=== PATIENT | male | born 1960 | race African-American/Black ===

== ENCOUNTER → 2020-08-04 08:44 | Outpatient (BNVA) | payer OTHER, SELFPAY | PROVIDERS: PCP Internal Medicine; Referring Provider Internal Medicine; Visit Provider Internal Medicine | DX: Z76.89 Persons encountering health services in other specified circumstances (principal) ==

== ENCOUNTER 2021-01-13 07:51 | Outpatient (REF) | payer OTHER, SELFPAY ==
[2021-01-13 08:46] LABS: Glucose Urine UA NEG (NEG); Leukocyte Esterase Urine NEG (NEG); Nitrite Urine NEG (NEG); Specific Gravity - Urine 1.025 (1.005-1.025); Urine Blood NEG (NEG); Urine Ketones NEG (NEG); Urine Protein TRACE MG/DL (NEG-TRACE)
[2021-01-13 08:47] LABS: Appearance Urine CLEAR; Color Urine YELLOW
[2021-01-13 08:51] LABS: MANUAL DIFF FLAG NO
[2021-01-13 09:02] LABS: Basophils Percent Auto 0.8 % (0-2); Eosinophils Percent Auto 1.1 % (0-4); Hematocrit 48.1 % (42-52); Hemoglobin 15.2 g/dl (14.0-18.0); Imm Gran Abs Auto 0.01 X10*3/uL (0.00-0.03); Imm Gran Pct Auto 0.3 % (0.0-0.4); Lymphocytes Absolute Auto 1.3 X10*3/uL (1.2-4.9); Lymphocytes Percent Auto 36.4 % (20-40); Mean Corpuscular HGB Conc 31.6 g/dl (31.0-36.0); Mean Corpuscular Hemoglobin 28.5 pg (27.0-33.0); Mean Corpuscular Volume 90.2 fL (80-98); Monocytes Absolute Auto 0.3 X10*3/uL (0.1-1.2); Monocytes Percent Auto 8.5 % (2-11); Neutrophils Absolute Auto 1.9 X10*3/uL (2.0-8.3); Neutrophils Percent Auto 52.9 % (45-73); Platelet Count 230 X10*3/uL (160-400); Red Blood Count 5.33 X10*6/uL (4.60-5.80); Red Cell Distribution Width 12.3 % (11.0-16.0); White Blood Count 3.5 X10*3/uL (4.8-10.8)
[2021-01-13 09:06] LABS: Alanine Aminotransferase 19 U/L (0-40); Albumin Level 4.1 g/dL (3.5-5.0); Alkaline Phosphatase 55 U/L (39-117); Anion Gap 11 (12-20); Aspartate Amino Transferase 17 U/L (5-37); Bilirubin Total 0.7 mg/dL (0.0-1.0); Blood Urea Nitrogen 17 mg/dL (9-16); Carbon Dioxide 27 mmol/L (22-29); Chloride 107 mmol/L (96-108); Cholesterol 209 mg/dL; Estimated Glomerular Filt Rate > 60; Glucose Fasting 96 mg/dL (60-99); HDL Cholesterol 52 mg/dL; LDL Cholesterol Calculated 126 mg/dl; Potassium 4.3 mmol/L (3.3-5.1); Sodium 141 mmol/L (135-145); Total Protein 7.6 g/dL (6.5-8.0); Triglycerides 157 mg/dL
[2021-01-13 09:30] LABS: Vitamin D 25-OH Total 13.7 ng/mL (>30)
[2021-01-13 10:06] LABS: Prostate Specific Antigen 0.63 ng/mL (<0.05-4.0)
[2021-01-17 13:26] LABS: Testosterone, Total 453 ng/dL (250-1100)
== END 2021-01-13 07:52 | disposition home or self-care (01) ==
LOC: HO.LAB 07:51
PROVIDERS: PCP Internal Medicine; Visit Provider Internal Medicine
DX: E78.00 Pure hypercholesterolemia, unspecified (principal); E66.9 Obesity, unspecified; E55.9 Vitamin D deficiency, unspecified; N52.9 Male erectile dysfunction, unspecified; I95.1 Orthostatic hypotension
CPT/HCPCS: 36415; 80053; 80061; 81003; 82306; 84153; 84403; 84443; 85025

== ENCOUNTER 2021-05-28 08:18 | Outpatient (REF) | payer OTHER, SELFPAY ==
--- NOTE | ~2021-05-28 | XR_ITS ---
EXAMINATION: BILATERAL KNEE X-RAY CLINICAL INFORMATION: Pain COMPARISON: Previous x-rays September 2019 and October 2009 TECHNIQUE: Standing AP view of both knees and lateral and sunrise view of the left knee FINDINGS: Left knee: Bone alignment is normal. No fracture or dislocation is seen. Joint spaces are normal. There is no joint effusion. There is a small osteophyte at the quadriceps tendon insertion to the patella. Standing AP view of the right knee is unremarkable. XR/XR knee standing BI IMPRESSION: Small osteophyte at the quadriceps tendon insertion to the patella otherwise unremarkable exam.
--- NOTE | ~2021-05-28 | XR_ITS ---
EXAMINATION: BILATERAL KNEE X-RAY CLINICAL INFORMATION: Pain COMPARISON: Previous x-rays September 2019 and October 2009 TECHNIQUE: Standing AP view of both knees and lateral and sunrise view of the left knee FINDINGS: Left knee: Bone alignment is normal. No fracture or dislocation is seen. Joint spaces are normal. There is no joint effusion. There is a small osteophyte at the quadriceps tendon insertion to the patella. Standing AP view of the right knee is unremarkable. XR/XR knee LT 2V IMPRESSION: Small osteophyte at the quadriceps tendon insertion to the patella otherwise unremarkable exam.
== END 2021-05-28 08:19 | disposition home or self-care (01) ==
LOC: HO.HOSX 08:18
PROVIDERS: Visit Provider Orthopaedic Surgery
DX: S83.8X2A Sprain of other specified parts of left knee, initial encounter (principal)
CPT/HCPCS: 73560; 73565; 99202

== ENCOUNTER 2021-06-11 08:04 | Outpatient (REF) | payer OTHER, SELFPAY ==
--- NOTE | ~2021-06-11 | MR_ITS ---
EXAMINATION: MR KNEE WITHOUT CONTRAST, LEFT CLINICAL INFORMATION: Left knee pain. COMPARISON: Radiographs 05/28/2021 TECHNIQUE: MRI of the knee without contrast was performed using routine sequences on a high-field scanner. FINDINGS: MENISCI: Medial Meniscus: Intact. Lateral Meniscus: Horizontal tear of the meniscal body with inner margin truncation. LIGAMENTS: Cruciate: Intact. Collateral: Intact. EXTENSOR MECHANISM: Intact. Patellar enthesopathy. ARTICULAR CARTILAGE/BONE: Patellofemoral Compartment: Full-thickness cartilage signal heterogeneity of the lateral patellar facet and focal irregularity with subchondral edema of the central trochlea. Medial Compartment: Normal. Lateral Compartment: Normal. JOINT FLUID AND BURSAE: No significant joint effusion. Degenerative cyst formation is present at the radial head at the tibiofibular joint. MR/MR knee LT wo con IMPRESSION: Horizontal tear and inner margin truncation of the lateral meniscus body. Mild patellofemoral compartment osteoarthritis with no significant joint effusion. Osteoarthritis of the tibiofibular joint with degenerative cysts is noted.
== END 2021-06-11 08:05 | disposition home or self-care (01) ==
LOC: HO.MRI 08:04
PROVIDERS: Visit Provider Physician Assistant
DX: S83.8X2A Sprain of other specified parts of left knee, initial encounter (principal)
CPT/HCPCS: 73721

== ENCOUNTER → 2021-06-15 08:31 | Outpatient (BNVA) | payer OTHER, SELFPAY | PROVIDERS: PCP Internal Medicine; Visit Provider Physician Assistant | DX: M17.12 Unilateral primary osteoarthritis, left knee (principal); S83.282A Other tear of lateral meniscus, current injury, left knee, initial encounter; X58.XXXA Exposure to other specified factors, initial encounter; Y93.9 Activity, unspecified; Y92.9 Unspecified place or not applicable; Y99.8 Other external cause status; E78.00 Pure hypercholesterolemia, unspecified | CPT/HCPCS: 99212 ==

== ENCOUNTER 2021-07-17 09:31 | Outpatient (REF) | payer OTHER, SELFPAY ==
[2021-07-17 09:47] LABS: MANUAL DIFF FLAG NO
[2021-07-17 10:06] LABS: Basophils Percent Auto 0.8 % (0-2); Eosinophils Absolute Auto 0.1 X10*3/uL (0.0-0.4); Eosinophils Percent Auto 1.9 % (0-4); Hematocrit 47.3 % (42.0-52.0); Hemoglobin 15.3 g/dl (14.0-18.0); Lymphocytes Absolute Auto 1.5 X10*3/uL (1.2-4.9); Lymphocytes Percent Auto 40.2 % (20-40); Mean Corpuscular HGB Conc 32.3 g/dl (31.0-36.0); Mean Corpuscular Hemoglobin 28.9 pg (27.0-33.0); Mean Corpuscular Volume 89.2 fL (80.0-98.0); Mean Platelet Volume 10.3 fL (9.4-12.4); Monocytes Absolute Auto 0.4 X10*3/uL (0.1-1.2); Monocytes Percent Auto 10.1 % (2-11); Neutrophils Absolute Auto 1.7 x10*3/uL (2.0-8.3); Platelet Count 217 X10*3/uL (160-400); Red Cell Distribution Width 12.6 % (11.0-16.0); White Blood Count 3.7 X10*3/uL (4.8-10.8)
[2021-07-17 10:30] LABS: Alanine Aminotransferase 19 U/L (0-40); Albumin Level 4.3 g/dL (3.5-5.0); Alkaline Phosphatase 59 U/L (39-117); Anion Gap 13 (12-20); Aspartate Amino Transferase 19 U/L (5-37); Bilirubin Total 0.7 mg/dL (0.0-1.0); Blood Urea Nitrogen 19 mg/dL (9-16); Calcium 9.3 mg/dL (8.4-10.2); Carbon Dioxide 27 mmol/L (22-29); Chloride 105 mmol/L (96-108); Cholesterol 204 mg/dL; Estimated Glomerular Filt Rate > 60; Glucose Fasting 86 mg/dL (60-99); HDL Cholesterol 58 mg/dL; LDL Cholesterol Calculated 121 mg/dl; Potassium 4.5 mmol/L (3.3-5.1); Sodium 140 mmol/L (135-145); Total Protein 7.9 g/dL (6.5-8.0); Triglycerides 129 mg/dL
[2021-07-17 10:52] LABS: TSH reflex Free T4 2.17 uIU/mL (0.32-4.0); Vitamin D 25-OH Total 18.8 ng/mL (>30)
[2021-07-17 11:27] LABS: Appearance Urine CLEAR; Color Urine YELLOW; Glucose Urine UA NEG (NEG); Leukocyte Esterase Urine NEG (NEG); Nitrite Urine NEG (NEG); PH 5.5 (5.0-8.0); Specific Gravity - Urine 1.025 (1.005-1.025); Urine Blood NEG (NEG); Urine Ketones NEG (NEG); Urine Protein TRACE MG/DL (NEG-TRACE)
== END 2021-07-17 09:32 | disposition home or self-care (01) ==
LOC: HO.LAB 09:31
PROVIDERS: PCP Internal Medicine; Visit Provider Internal Medicine
DX: I10 Essential (primary) hypertension (principal); E78.00 Pure hypercholesterolemia, unspecified; E55.9 Vitamin D deficiency, unspecified
CPT/HCPCS: 36415; 80053; 80061; 81003; 82306; 84443; 85025

== ENCOUNTER → 2021-08-13 13:12 | Outpatient (BNVA) | payer OTHER, SELFPAY | PROVIDERS: PCP Internal Medicine; Visit Provider Orthopaedic Surgery | DX: S83.242D Other tear of medial meniscus, current injury, left knee, subsequent encounter (principal) | CPT/HCPCS: 99212 ==

== ENCOUNTER 2021-08-23 11:22 | Emergency (ER) | payer OTHER, SELFPAY ==
[2021-08-23 12:11] VITALS: BP 121/74; PULSE 107; RESP 18; TEMP 37.9; O2SAT 97; BMI 29.5
[2021-08-23 15:38] VITALS: BP 130/77; PULSE 99; RESP 16; TEMP 38.3; O2SAT 96
[2021-08-23] MEDS: Ibuprofen 600 MG TABLET PO (15:50)
[2021-08-23 15:53] LABS: COVID-19 Test Positive (Negative); IDNOW Serial# 9DD0AD1C
--- NOTE | 2021-08-23 16:18 | ED_ITS ---
HPI - URI/Sore Throat General Chief Complaint: Upper Respiratory Symptoms Stated Complaint: positive covid,finnegan,chills,fever Time Seen by Provider: 08/23/21 15:54 History of Present Illness HPI Narrative: Patient complains of fever headache body aches runny nose cough and mild sore throat for 1 day Negatives are no stiff neck no dizziness no confusion no weakness no fainting no chest pain no shortness of breath no abdominal pain no nausea vomiting or diarrhea Related Data Home Medications Medication Instructions Recorded Confirmed sildenafil 50 mg tablet 50 mg PO DAILY PRN 12/04/20 07/15/21 Previous Rx's Medication Instructions Recorded atorvastatin 20 mg tablet 20 mg PO DAILY #90 tab 07/15/21 cholecalciferol (vitamin D3) 50 50 mcg PO DAILY 90 Days #90 cap 07/15/21 mcg (2,000 unit) capsule cyclobenzaprine 10 mg tablet 10 mg PO BEDTIME #14 tab 08/04/21 meloxicam 15 mg tablet 15 mg PO DAILY #14 tab 08/04/21 Allergies Allergy/AdvReac Type Severity Reaction Status Date / Time No Known Allergies Allergy Verified 08/23/21 12:11 [facility] Past Medical History Source: nursing notes reviewed Medical History (Updated 08/23/21 @ 16:22 by JAKE Reid) Dermatitis Dizziness Erectile dysfunction Obesity (BMI 30-39.9) Orthostatic hypotension Overweight (BMI 25.0-29.9) Primary osteoarthritis of left knee Pure hypercholesterolemia Surgical History History of splenectomy Family History Family History Father No problems noted. Mother Diabetes Social History Social History Housing: Condominium Alcohol intake: current Alcohol intake frequency: a few times a week Patient Tobacco Use Status: Never used Tobacco Second Hand Smoke Exposure: No Advance Directives: No Advance Directives Information Provided: No Current occupational status: employed Physical Exam Vital Signs: Vital Signs: Last Vital Signs Temp 101.0 F H 08/23/21 15:38 Pulse 99 08/23/21 15:38 Resp 16 08/23/21 15:38 BP 130/77 01/02/22 15:38 Pulse Ox 96 08/23/21 15:38 BMI result Body Mass Index 29.5 General appearance no acute distress The eyes no redness or discharge The pharynx is clear with no redness swelling or exudate, mucous membranes are moist Neck is supple Respiratory no distress Chest clear to auscultation bilateral Heart no murmur Extremities full range of motion x4 Course Course Course Narrative: Patient is positive for COVID , and is febrile but otherwise no signs of any distress no signs of any respiratory distress and is well- appearing and is discharged Because of his BMI he is referred for monoclonal antibody treatment MDM - URI/Sore Throat Lab Data Labs: Lab Results 08/23/21 Range/Units 15:41 COVID-19 ([facility]) Positive A (Negative) COVID-19 Clin Com See Note Discharge Plan Discharge Clinical Impression: COVID-19 Patient Disposition: Home, Self-Care Additional Instructions: You tested positive for COVID I recommend that you go for the monoclonal antibody treatment which is usually successful and preventing any severe COVID illness Return to the ER any time for difficulty breathing any worse condition or any concerns Use Tylenol and or Motrin as needed for fever and body aches Prescriptions: No Action sildenafil 50 mg tablet 50 mg PO DAILY PRNRF: 0 atorvastatin 20 mg tablet 20 mg PO DAILY Qty: 90 RF: 1 cholecalciferol (vitamin D3) 50 mcg (2,000 unit) capsule 50 mcg PO DAILY 90 Days Qty: 90 RF: 3 meloxicam 15 mg tablet 15 mg PO DAILY Qty: 14 RF: 0 cyclobenzaprine 10 mg tablet 10 mg PO BEDTIME Qty: 14 RF: 0
== END 2021-08-23 16:45 | disposition home or self-care (01) ==
PROVIDERS: Emergency Provider Emergency Medicine; PCP Internal Medicine
DX: U07.1 COVID-19 (principal)
CPT/HCPCS: 36415; 87635; 99283; 99284

== ENCOUNTER → 2021-09-10 08:38 | Outpatient (BNVA) | payer OTHER, SELFPAY | PROVIDERS: PCP Internal Medicine; Referring Provider Internal Medicine; Visit Provider Internal Medicine | DX: Z01.810 Encounter for preprocedural cardiovascular examination (principal); I95.1 Orthostatic hypotension; R94.31 Abnormal electrocardiogram [ECG] [EKG] | CPT/HCPCS: 93005; 99212 ==

== ENCOUNTER → 2021-10-07 08:34 | Outpatient (REF) | payer OTHER, SELFPAY ==
--- NOTE | 2021-10-07 08:38 | CA_ITS ---
Transthoracic Echocardiogram Patient (Last, First, Middle): Vel Forrester, Gender: Male Date of : 1960 Age: 61 Procedure Date: 10/07/2021 Procedure Type: Transthoracic Echocardiogram Location: OP Height: 187.96 cm Weight: 106.6 kg BSA: 2.33 m2 Heart Rate: bpm BP: 135 / 80 mmHg Meatcutter: Referring MD: Anant Marcial MD Symptoms: R94.31 - Abnormal electrocardiogram [ECG] [EKG] Study Quality: Good ECG Rhythm: Sinus Conclusions: - 1. Normal LV systolic function with LVEF of 60-65% with mild LVH with grade 1 diastolic dysfunction 2. Normal cardiac valvular Doppler 3. Normal RV systolic pressure 4. No pericardial effusion Findings Left Ventricle Normal left ventricular size and systolic function. There is mildly increased left ventricular wall thickness. The visually estimated ejection fraction is between 60-65%. Spectral Doppler is indicative of an impaired relaxation filling pattern. E/E prime ratio is <8, consistent with normal filling pressures. Evidence suggests grade I (mild) diastolic dysfunction. Right Ventricle Normal right ventricular cavity size and systolic function. Atria Both atria are normal in size. There is no evidence of interatrial shunt. Aortic Valve The aortic valve structure and function is likely normal. There is no aortic valve stenosis. There is no aortic valve regurgitation. Mitral Valve Normal mitral valve structure and function. There is trace mitral valve regurgitation. There is no mitral valve stenosis. Pulmonic Valve The pulmonic valve was not well visualized. Tricuspid Valve Likely normal tricuspid valve structure and function. There is trace tricuspid valve regurgitation. The right ventricular systolic pressure is normal. The right ventricular systolic pressure is 16 mmHg. There is no evidence of pulmonary hypertension. Great Vessels All visible segments of the aorta are normal in size. The pulmonary artery was not well visualized. Venous The inferior vena cava is normal in size and collapses greater than 50% with inspiration. Pericardium/Pleural There is no evidence of pericardial effusion. Prior Study Comparison No significant change compared to prior study dated: 02/06/2020. Measurements 2D Linear Measurements IVSd: 1.22 0.6-0.9/0.6-1.0 cm LVIDd: 4.66 3.9-5.3/4.2-5.9 cm LVIDd Index: 2.00 2.4-3.2/2.2-3.1 cm/m2 LVIDs: 2.88 2.0-3.6 cm LVPWd: 1.29 0.7-1.1 cm Ao Root: 3.50 2.1-3.5 cm LA Diam: 4.20 2.7-3.8/3.0-4.0 cm LAIDs Index: 1.80 1.5-2.3 cm/m2 LV Mass: 335.26 67-162/88-224 g LV Mass Index: 143.89 43-95/49-115 g/m2 LVOT Diam: 2.30 3.0+(-)1.3 cm 2D Systolic Function EF 4C: 59.70 >55% EF 2C: 60.10 >55% EF BiP: 59.40 >55% Mitral Valve MV Pk E: 0.57 MV PK A: 0.57 MV Decel Time: 209.00 E/A: 1.00 E'Lateral: 5.87 E'Medial: 7.18 E/E' Med: 8.00 E/E' Lat: 9.80 PHT: 61.00 MVA PHT: 3.61 Decel [place]: 2.75 Aortic Valve AoV Pk Jakob: 1.15 AoV Mn Jakob: 0.75 AoV VTI: 0.27 AoV Pk Grad: 5.00 Aov Mn Grad: 3.00 JARED Cont.VTI: 3.04 LVOT LVOT Pk Jakob: 0.91 LVOT Mn Jakob: 0.59 LVOT VTI: 0.20 LVOT Pk Grad: 3.00 LVOT Mn Grad: 2.00 LVOT Diam: 2.30 LVOT Area: 4.15 Diastolic Function MV Pk E: 0.57 MV Pk A: 0.57 E/A: 1.00 E'Medial: 7.18 E/E' Med: 8.00 E' Laterial: 5.87 E/E' Lat: 9.80 Tricuspid Valve TR Pk Jakob: 1.78 TR Pk Grad: 13.00 RA Press: 3.00 RVSP: 16.00 Great Vessels Aorta Ao Root-2D: 3.50 2.0-3.7 cm Ao Asc: 3.10 2.1-3.4 cm Pulmonary Valve PV Pk Jakob: 0.92 Peak PV Grad: 3.00 Updated in Other Vendor System with Status of Final Dario Clover MD electronically signed on 10/07/2021 11:16:53 AM with status of Final
== END ==
LOC: HO.CARD 08:34
PROVIDERS: PCP Internal Medicine; Visit Provider Internal Medicine
DX: Z01.810 Encounter for preprocedural cardiovascular examination (principal); R94.31 Abnormal electrocardiogram [ECG] [EKG]
CPT/HCPCS: 93306

== ENCOUNTER → 2021-10-09 07:38 | Outpatient (REF) | payer OTHER, SELFPAY ==
--- NOTE | ~2021-10-09 | NM_ITS ---
Exercise Myocardial perfusion study Indication: Abnormal EKG to evaluate for myocardial ischemia Technique: The patient was brought in for an exercise perfusion study on 10/09/2021. Patient performed exercise as per Homer protocol and was injected 35 mCi of sestamibi was given intravenously one target HR was achieved. Images were obtained using the SPECT gamma camera interlaced with the gating device. Images were obtained in supine position. Resting perfusion study was performed on 10/13/2021. Patient was administered 35 mCi of sestamibi intravenously at rest. Images were then obtained in supine position. Images obtained with and without CT attenuation. Total DLP 97 mGy-cm. Images were processed with the software and compared side to side in short axis, horizontal long axis and vertical long axis views. Findings: The stress perfusion study showed non attenuated images show mildly to moderately reduced uptake in the mid and basal inferior wall of the LV myocardium. Remainder of the LV myocardium is normal uptake. Attenuation corrected images show some thinning of the mid anterior wall of the LV myocardium. The gated study shows normal LV systolic function with calculated LVEF of 55%. LV cavity is normal in size. The gated study shows normal systolic wall thickening and contraction of all segments. There is no transient ischemic dilation. Resting study shows no significant change in perfusion pattern compared to stress perfusion study. Gating at rest reveals normal systolic wall motion with ejection fraction at 61%. The findings are consistent with no clear reversible ischemia.. NM/NM cardiolite stress test Impression: 1. Normal myocardial perfusion 2. Gated LVEF is 65% 3. Transient ischemic dilatation not present Stress EKG is nondiagnostic for ischemia
--- NOTE | 2021-10-09 07:41 | CA_ITS ---
Acquisition Time: 2021-10-09 07:55:33 Total Exercise Time: 00:09:15 Test Indications: HYPERLIPIDEMIA Medications: SEE CHART Protocol: LINDA Max HR: 153 BPM 95% of Pred: 161 BPM Max BP: 162/088 mmHG Max Work Load: 10.4 METS Exercise stress test with exercise 9 min 15 sec of Linda protoocol, with mild sob, no chest discomfort, with isolated PACs, nonconducted PACs and one atrial triplet at near peak, with normotensive response to exercise, with EKG abnormality at baseline: downsloping ST with T wave inversion inferiorly and V3-V6, with 1- 1.[address] depression in those leads with exercise: nondiagnostic for ischemia. In recovery EKG returned to baseline. Nuclear images pending. Test reviewed with Dr Galo Referred By: Anant Marcial Overread By: JANET MARTINEZ
== END ==
LOC: HO.CARD 07:38
PROVIDERS: PCP Internal Medicine; Visit Provider Internal Medicine
DX: Z01.810 Encounter for preprocedural cardiovascular examination (principal); R94.31 Abnormal electrocardiogram [ECG] [EKG]
CPT/HCPCS: 78452; 93017; A9500

== ENCOUNTER → 2021-10-14 13:06 | Outpatient (BNVA) | payer OTHER, SELFPAY | PROVIDERS: PCP Internal Medicine; Referring Provider Internal Medicine; Visit Provider Internal Medicine | DX: Z01.810 Encounter for preprocedural cardiovascular examination (principal); I95.1 Orthostatic hypotension; R94.31 Abnormal electrocardiogram [ECG] [EKG] | CPT/HCPCS: 99212 ==

== ENCOUNTER → 2021-11-05 08:11 | Outpatient (BNVA) | payer OTHER, SELFPAY | PROVIDERS: Visit Provider Physician Assistant | DX: Z01.818 Encounter for other preprocedural examination (principal); S83.242D Other tear of medial meniscus, current injury, left knee, subsequent encounter | CPT/HCPCS: 99212 ==

== ENCOUNTER 2021-11-06 07:42 | Day surgery (SDC) | payer OTHER, SELFPAY ==
--- NOTE | 2021-11-05 10:26 | HO.ANESPROP2 ---
Documented by User: Ciera Cooper NP 11/05/21 10:27 HPI - Anesthesia Eval Consult details Narrative: 61yo M for Left Knee Arthroscopy Cardiac optimized PMFSH Active Problems Active Problems: All Active Problems (Updated 09/10/21 @ 09:01 by Anant Marcial MD) Abnormal EKG (Acute) Preoperative cardiovascular examination (Acute) COVID-19 (Acute) Tear of medial meniscus of left knee, current (Acute) Low back pain (Acute) Recurrent chest pain (Acute) Overweight (BMI 25.0-29.9) (Acute) Tear of lateral meniscus of left knee (Acute) Vertigo (Acute) Nasal airway abnormality (Acute) Acute medial meniscal injury of left knee (Acute) Major depression, recurrent (Acute) Knee pain, left (Acute) Left ankle pain (Acute) Erectile dysfunction (Acute) Obesity (BMI 30-39.9) (Acute) Primary osteoarthritis of left knee (Acute) Pure hypercholesterolemia (Acute) Orthostatic hypotension (Acute) Past Medical History Medical History Dermatitis Dizziness Erectile dysfunction Obesity (BMI 30-39.9) Orthostatic hypotension Overweight (BMI 25.0-29.9) Primary osteoarthritis of left knee Pure hypercholesterolemia Family History Family History Father No problems noted. Mother Diabetes Surgical History Surgical History (Updated 11/06/21 @ 08:20 by Maria Guadalupe Hill RN) History of right inguinal hernia repair History of splenectomy Social History Social History Housing: Condominium Alcohol intake: current Alcohol intake frequency: a few times a week Patient Tobacco Use Status: Never used Tobacco Second Hand Smoke Exposure: No Use of substances other than those prescribed or required for medical reasons: No Are you DNR?: No Advance Directives: No Advance Directives Information Provided: Yes Current occupational status: employed Meds Allergies Allergy/AdvReac Type Severity Reaction Status Date / Time No Known Allergies Allergy Verified 11/05/21 09:02 Home Medications Medication Instructions Recorded Confirmed Last Taken Type loratadine 10 mg tablet 1 tab PO DAILY 11/02/21 11/02/21 Unknown History sertraline 50 mg tablet tab PO 11/02/21 11/02/21 Unknown History trazodone 50 mg tablet 0.5 tab PO BEDTIME PRN 11/02/21 11/02/21 Unknown History Exam Exam Date and Time: November 05, 2021 1026 Pertinent Lab Results Pertinent Lab Results: Laboratory Tests 07/17/21 07/17/21 09:43 09:43 WBC 3.7 L Hgb 15.3 Hct 47.3 Plt Count 217 Sodium 140 Potassium 4.5 Chloride 105 Carbon Dioxide 27 BUN 19 H Creatinine 1.07 Narrative Narrative: 08/2021 EKG with sinus rhythm and T inversions along the anterolateral leads, slightly progressed compared to the previous EKG. 09/2021 Echocardiogram with normal LVEF, 60-65% and mild diastolic dysfunction but otherwise unremarkable.? 09/2021 Myocardial perfusion imaging study shows normal perfusion.? He reached 10.4 Mets on Homer protocol without any anginal symptoms Assessment and Plan Assessment Anesthesia Assessment: Chart Reviewed Documented by User: Ric Cruz MD 11/06/21 09:49 [facility] Past Medical History Medical History Dermatitis Dizziness Erectile dysfunction Obesity (BMI 30-39.9) Orthostatic hypotension Overweight (BMI 25.0-29.9) Primary osteoarthritis of left knee Pure hypercholesterolemia Family History Family History Father No problems noted. Mother Diabetes Family history of problems with anesthesia: No Surgical History Surgical History (Updated 11/06/21 @ 08:20 by Maria Guadalupe Hill RN) History of right inguinal hernia repair History of splenectomy History of Problems with Anesthesia: No Social History [facility] Alcohol intake: current Alcohol intake frequency: a few times a week Patient Tobacco Use Status: Never used Tobacco Second Hand Smoke Exposure: No Use of substances other than those prescribed or required for medical reasons: No Are you DNR?: No Advance Directives: No Advance Directives Information Provided: Yes Current occupational status: employed Meds Allergies Allergy/AdvReac Type Severity Reaction Status Date / Time No Known Allergies Allergy Verified 11/05/21 09:02 Home Medications Medication Instructions Recorded Confirmed Last Taken Type loratadine 10 mg tablet 1 tab PO DAILY 11/02/21 11/02/21 Unknown History sertraline 50 mg tablet tab PO 11/02/21 11/02/21 Unknown History trazodone 50 mg tablet 0.5 tab PO BEDTIME PRN 11/02/21 11/02/21 Unknown History Exam Airway Mallampati Class: III TM Dist: >3cm Neck ROM: Full Assessment and Plan Assessment Anesthesia Assessment: Anesthesia Plan Discussed Final Anesthetic Review Family History of Problems with Anesthesia: No History of Problems with Anesthesia: No NPO: Yes ASA Class: III Final Preanesthetic Review: No Changes in Pt Med Stat, Meds/Allgs Chart Reviewed, Consent Obtained/Reviewed and Anes Risks/Benef Reviewed Patient Risk: Intermediate Procedure Risk: Low Anesthetic Plan Anesthetic Plan: GA Disposition: Standard PACU
[2021-11-06 08:13] VITALS: BMI 29.5
[2021-11-06 08:33] VITALS: BP 134/97; PULSE 66; RESP 16; TEMP 37; O2SAT 98
[2021-11-06] MEDS: Lactated Ringers 1,000 ML 100 ML IVCONT (08:36)
--- NOTE | 2021-11-06 10:12 | MHC.SHP ---
Pre-Procedural Eval Section A Date of Service: 11/06/21 The patient is an INPATIENT: No Changes since office visit: Yes Patient answered all questions; No Cold of Flu in the past 2 weeks, No New Medical Problems and No Changes in Medication The History & Physical has been completed within 30 days and I have reviewed it.: Yes Section B Chief Complaint: medial meniscus tear Allergies: Allergies Allergy/AdvReac Type Severity Reaction Status Date / Time No Known Allergies Allergy Verified 11/05/21 09:02 Plan I have reviewed the history and physical and performed a pertinent physical examination on my patient. No changes have occurred unless specified.
--- NOTE | 2021-11-06 11:21 | PM.OP ---
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
[2021-11-06 11:31] VITALS: BP 124/81; PULSE 73; RESP 16; TEMP 37.1; O2SAT 98
[2021-11-06 11:36] VITALS: BP 128/87; PULSE 67; RESP 17; O2SAT 98
[2021-11-06 11:46] VITALS: BP 117/84; PULSE 64; RESP 17; O2SAT 99
[2021-11-06 12:01] VITALS: BP 136/74; PULSE 91; RESP 18; TEMP 36.8; O2SAT 98
--- NOTE | 2021-11-10 09:29 | W.PM.OPN ---
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 A time-out was called to identify proper site proper procedure proper surgeon and IV antibiotics per weight were administered. I began by exsanguinating the limb and insufflating tourniquet to 300 mm Hg. Then made a standard anterolateral stab incision. The knee was insufflated with water and 30 degree arthroscope was placed. There was grade 1 fibrillations of the patella but overall suprapatellar pouch was plane and the gutters were clean. I descended into the medial compartment where I made my medial portal under direct visualization. There was mild fraying of the posterior horn of the medial meniscus. Root was intact and there was grade 1 changes were normal cartilage surfaces. I examined the ACL and notch which were normal. I then entered the lateral compartment. There was a radial tear of the body of the lateral menicus with an intact root. I uised a bioter and shaver and cautery to remove the unstable torn portions while leaving the peripheral radial fibers intact. There were G2 Chondromalacia of the medial weight bearing portion of the lateral tibial plateau. I used a shaver to debride this. The femoral condyle cartilage was normal. I then removed all instrumentation and closed the portals with skin glue. 25 mL of 2% Marcaine with epinephrine was injected into the joint and the surrounding soft tissues. Patient was then placed in sterile dressing extubated brought recovery room stable condition. There were no known complications.
== END 2021-11-06 13:04 | disposition home or self-care (01) ==
PROVIDERS: PCP Internal Medicine; Visit Provider Orthopaedic Surgery
PROC: (CPT 29870; principal; 2021-11-06 10:10)
DX: S83.282A Other tear of lateral meniscus, current injury, left knee, initial encounter (principal); M22.42 Chondromalacia patellae, left knee; M17.12 Unilateral primary osteoarthritis, left knee; R26.2 Difficulty in walking, not elsewhere classified; X58.XXXA Exposure to other specified factors, initial encounter; Y93.9 Activity, unspecified; Y92.9 Unspecified place or not applicable; Y99.8 Other external cause status; E78.00 Pure hypercholesterolemia, unspecified; I95.1 Orthostatic hypotension; E66.9 Obesity, unspecified; Z68.30 Body mass index [BMI] 30.0-30.9, adult; R42 Dizziness and giddiness; Z90.81 Acquired absence of spleen; Z79.899 Other long term (current) drug therapy
CPT/HCPCS: 29881; J0171; J0690; J1100; J1885; J2250; J2405; J3010

== ENCOUNTER → 2021-11-12 09:44 | Outpatient (BNVA) | payer OTHER, SELFPAY | PROVIDERS: PCP Internal Medicine; Visit Provider Physician Assistant | DX: S83.282D Other tear of lateral meniscus, current injury, left knee, subsequent encounter (principal) | CPT/HCPCS: 99212 ==

== ENCOUNTER 2021-11-25 14:00 | Outpatient (RCR) | payer OTHER, SELFPAY ==
--- NOTE | 2021-11-12 11:41 | MHC.PT.EP ---
[facility] [place] Office [place] Office [place] Office [address] Jamshid Carlton [address] [phone] F: [phone] F: [phone] F: [phone] F: [phone] Physical Therapy Plan of Care Date of Evaluation: Date of Surgery: 11/06/21 Diagnosis: LEFT Lateral partial meniscectomy with chondroplasty 11/06/21 Assessment: 61 YO MALE REF TO PT S/P LEFT KNEE ARTHROSCOPIC PARTIAL LATERAL MENISCECTOMY WITH CHONDROPLASTY ON 11/06/21- HE HAS BEEN AMB WITH 1-2 CRUTCHES AND TOE TOUCH WT BEARING LEFT. HE RESIDES ALONE AND Pt PRESENTED - TODAY WITH REPORTS OF LEFT CALF MUSCLE PAIN AND IRRITABILITY PROBAB DUE TO HIS MOST RECENT GAIT MECHANICS- Pt EDUC BY ORTHO AND PT TO MONITOR HIS CALF SXS. OBJECTIVE FINDINGS: LIMITED AROM LEFT KNEE AND ANKLE, TIGHT PSOAS AND HIP ROTAT LEFT; DECR STRENGTH IN PROX / LUMBOPELVIC AND Lt LE, POST-OP PAIN IN LEFT CALF > LEFT KNEE ,AND HEALING ANT Lt KNEE INCISIONS. FUNCTIONALLY, Pt IS AMB W AN ALTERED GAIT W 1 CRUTCH TODAY AND LEFT FOREFOOT WT BEAR- HE IS CLEARED FOR WBAT LEFT- HE HAS COMPENSATORY GAIT, MODIFIED STAIR MGMT, DECR STANDING, SLEEPING, AND DECR CLAUDIA TO MORE DYNAMIC ADLs . Pt IS A VERY GOOD PT CANDIDATE TO GUIDE HIM IN HIS POST-OP Lt MENISCECTOMY/ CHONDROPLASTY COURSE, ADDRESSING THE ABOVE FINDINGS, PAIN MGMT/ SELF-SX MGMT TECHN, AND MAXIMIZING HIS FUNCTIONAL INDEPENDENCE. Frequency and Duration: The patient will be seen 2 x WK x 8 WKS Short Term Goals: Pt DEMON PROPER LEFT QUAD SET-> SLR IN 1 WK Pt'S LEFT KNEE PAIN DECREASED TO 2-3/10 IN 2 WKS Pt DEMON WFL AROM HIP EXT AND ANKLE DF/PF AND AROM LEFT KNEE 0* TO 120* IN 4 WKS Pt DEMO IMPROVED GAIT MECH W LEAST RESTRICTIVE AD ON LEVEL GROUND AND STAIRS IN 4 WKS Pt INDEP W Lt PATELLAR MOBS IN 3 WKS Halfway Goals: Pt INDEP W HEP PROGRESSION AND SELF-SX MGMT STRATEGIES IN 8 WKS Pt RESUME REG ADLs EVIDENT W IMPROVED LEFI SCORE BY 10-15 POINTS (AT EVAL 2/80 ) IN 8 WKS Pt INCR LEFT LE STRENGTH BY 1 GRADE IN 8 WKS Pt DEMON LEFT SLS x 15 SEC IN 8WKS Treatment Plan: Modalities to reduce pain, spasms and effusion. Manual therapy to restore motion and function. Therapeutic exercise to improve strength and flexibility. Neuromuscular re-education for posture and balance. Therapeutic activities to return to functional activities of daily living. Electronically signed by: Barbara Pederson,PT Please sign and return to therapist. Thank you for your referral.
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
--- NOTE | 2021-12-24 14:34 | MHC.PT.DC ---
[facility] [place] Office [place] Office [place] Office [address] Jamshid Carlton 140 [facility] [phone] F: [phone] F: [phone] F: [phone] F: [phone] Physical Therapy Discharge Report Diagnosis: LEFT Lateral partial meniscectomy with chondroplasty 11/06/21 Date of Surgery: 11/06/21 Date of Evaluation: 11/12/21 Date of Discharge: 12/24/21 Treatments to Date: 3 Cancellations to Date: No Shows to Date: Discharge Status: Patient Elected to Stop Discharge Summary: Patient transferred to another facility due to insurance. DC to HEP. Electronically signed by: Rima Yee PT Please sign and return to therapist. Thank you for your referral.
== END 2021-12-24 14:34 | disposition home or self-care (01) ==
LOC: HO.PTCHIC 14:00
PROVIDERS: PCP Internal Medicine; Visit Provider Physician Assistant
DX: S83.282D Other tear of lateral meniscus, current injury, left knee, subsequent encounter (principal)
CPT/HCPCS: 97110; 97140; 97161; 97530

== ENCOUNTER → 2021-12-10 09:17 | Outpatient (BNVA) | payer OTHER, SELFPAY | PROVIDERS: PCP Internal Medicine; Visit Provider Physician Assistant | DX: S83.281D Other tear of lateral meniscus, current injury, right knee, subsequent encounter (principal) | CPT/HCPCS: 99212 ==

== ENCOUNTER 2021-12-29 05:59 | Outpatient (REF) | payer OTHER, SELFPAY ==
[2021-12-29 06:24] LABS: MANUAL DIFF FLAG NO
[2021-12-29 07:43] LABS: Basophils Percent Auto 0.6 % (0-2); Eosinophils Absolute Auto 0.1 X10*3/uL (0.0-0.4); Eosinophils Percent Auto 1.8 % (0-4); Hematocrit 46.2 % (42.0-52.0); Hemoglobin 14.9 g/dl (14.0-18.0); Lymphocytes Absolute Auto 1.3 X10*3/uL (1.2-4.9); Lymphocytes Percent Auto 37.1 % (20-40); Mean Corpuscular HGB Conc 32.3 g/dl (31.0-36.0); Mean Corpuscular Volume 90.1 fL (80.0-98.0); Mean Platelet Volume 10.5 fL (9.4-12.4); Monocytes Absolute Auto 0.3 X10*3/uL (0.1-1.2); Monocytes Percent Auto 7.6 % (2-11); Neutrophils Absolute Auto 1.8 x10*3/uL (2.0-8.3); Neutrophils Percent Auto 52.9 % (45-73); Platelet Count 227 X10*3/uL (160-400); Red Blood Count 5.13 X10*6/uL (4.60-5.80); Red Cell Distribution Width 12.5 % (11.0-16.0); White Blood Count 3.4 X10*3/uL (4.8-10.8)
[2021-12-29 08:21] LABS: Alanine Aminotransferase 22 U/L (0-40); Albumin Level 4.2 g/dL (3.5-5.0); Alkaline Phosphatase 53 U/L (39-117); Anion Gap 15 (12-20); Aspartate Amino Transferase 25 U/L (5-37); Bilirubin Total 0.3 mg/dL (0.0-1.0); Blood Urea Nitrogen 16 mg/dL (9-16); Calcium 9.3 mg/dL (8.4-10.2); Carbon Dioxide 25 mmol/L (22-29); Chloride 107 mmol/L (96-108); Cholesterol 202 mg/dL; Estimated Glomerular Filt Rate 58; Glucose Fasting 100 mg/dL (60-99); HDL Cholesterol 47 mg/dL; LDL Cholesterol Calculated 119 mg/dl; Potassium 4.7 mmol/L (3.3-5.1); Sodium 142 mmol/L (135-145); Total Protein 7.9 g/dL (6.5-8.0); Triglycerides 183 mg/dL
[2021-12-29 08:29] LABS: Prostate Specific Antigen Scr 0.84 ng/mL (<0.05-4.0); TSH reflex Free T4 3.99 uIU/mL (0.32-4.0); Vitamin D 25-OH Total 28.9 ng/mL (>30)
[2021-12-29 08:45] LABS: Appearance Urine CLEAR; Color Urine YELLOW; Glucose Urine UA NEG (NEG); Leukocyte Esterase Urine NEG (NEG); Nitrite Urine NEG (NEG); Specific Gravity - Urine 1.025 (1.005-1.025); Urine Blood NEG (NEG); Urine Ketones NEG (NEG); Urine Protein NEG (NEG-TRACE)
== END 2021-12-29 06:00 | disposition home or self-care (01) ==
LOC: HO.LAB 05:59
PROVIDERS: PCP Internal Medicine; Visit Provider Internal Medicine
DX: Z00.00 Encounter for general adult medical examination without abnormal findings (principal); Z12.5 Encounter for screening for malignant neoplasm of prostate; E78.00 Pure hypercholesterolemia, unspecified; I10 Essential (primary) hypertension; E55.9 Vitamin D deficiency, unspecified
CPT/HCPCS: 36415; 80053; 80061; 81003; 82306; 84153; 84443; 85025

== ENCOUNTER → 2022-01-14 09:22 | Outpatient (BNVA) | payer OTHER, SELFPAY | PROVIDERS: PCP Internal Medicine; Visit Provider Physician Assistant | DX: S83.289D Other tear of lateral meniscus, current injury, unspecified knee, subsequent encounter (principal) | CPT/HCPCS: 99212 ==

== ENCOUNTER 2022-04-22 12:50 | Outpatient (REF) | payer OTHER, SELFPAY ==
[2022-04-22 13:18] LABS: Binax Internal Control QC Valid; Binax Now Covid-19 Ag Negative (Negative)
== END 2022-04-22 12:51 | disposition home or self-care (01) ==
LOC: HO.HMGCLDS 12:50
DX: R51.9 Headache, unspecified (principal); Z20.822 Contact with and (suspected) exposure to COVID-19
CPT/HCPCS: 87811; C9803

== ENCOUNTER 2022-04-26 14:45 | Emergency (ER) | payer OTHER, SELFPAY ==
[2022-04-26 14:48] VITALS: BP 134/85; PULSE 73; RESP 18; TEMP 36.8; O2SAT 98; BMI 30.2
[2022-04-26 14:55] LABS: MANUAL DIFF FLAG NO
[2022-04-26 14:56] LABS: Basophils Percent Auto 0.6 % (0-2); Eosinophils Absolute Auto 0.1 X10*3/uL (0.0-0.4); Hematocrit 46.4 % (42.0-52.0); Hemoglobin 14.9 g/dl (14.0-18.0); Imm Gran Abs Auto 0.01 X10*3/uL (0.00-0.03); Imm Gran Pct Auto 0.3 % (0.0-0.4); Lymphocytes Absolute Auto 1.3 X10*3/uL (1.2-4.9); Lymphocytes Percent Auto 39.1 % (20-40); Mean Corpuscular HGB Conc 32.1 g/dl (31.0-36.0); Mean Corpuscular Hemoglobin 28.3 pg (27.0-33.0); Mean Platelet Volume 9.8 fL (9.4-12.4); Monocytes Absolute Auto 0.4 X10*3/uL (0.1-1.2); Monocytes Percent Auto 10.2 % (2-11); Neutrophils Absolute Auto 1.6 x10*3/uL (2.0-8.3); Neutrophils Percent Auto 47.8 % (45-73); Platelet Count 218 X10*3/uL (160-400); Red Blood Count 5.27 X10*6/uL (4.60-5.80); Red Cell Distribution Width 13.1 % (11.0-16.0); White Blood Count 3.4 X10*3/uL (4.8-10.8)
[2022-04-26 15:14] LABS: Alanine Aminotransferase 23 U/L (0-40); Albumin Level 4.3 g/dL (3.5-5.0); Alkaline Phosphatase 48 U/L (39-117); Anion Gap 12 (12-20); Aspartate Amino Transferase 22 U/L (5-37); Bilirubin Total 0.4 mg/dL (0.0-1.0); Blood Urea Nitrogen 17 mg/dL (9-16); Calcium 9.1 mg/dL (8.4-10.2); Carbon Dioxide 26 mmol/L (22-29); Chloride 108 mmol/L (96-108); Creatinine Clr Calc Pharmacy 82.3; Estimated Glomerular Filt Rate 59; Glucose Random 102 mg/dL (60-115); Potassium 4.4 mmol/L (3.3-5.1); Sodium 142 mmol/L (135-145); Total Protein 8.2 g/dL (6.5-8.0)
--- NOTE | 2022-04-26 15:28 | ED_ITS ---
HPI - General Adult General Chief complaint: Abdominal Pain Stated complaint: Kidney issues Time Seen by Provider: 04/26/22 15:28 Source: patient Mode of arrival: ambulatory Limitations: no limitations History of Present Illness HPI narrative: Patient is a 62 year old male presenting to the emergency department today with right-sided flank pain. Patient states that for the last week or so he has had r ight-sided flank pain. Patient states that his flank hurts significantly more when he turns the wrong way. Patient states he first noted the pain in the gym. Patient denies any dizziness, lightheadedness, abdominal pain, nausea, vomiting, fever, chills, blurry vision, double vision, loss of vision, chest pain, difficulty breathing, shortness of breath, back pain, night sweats, pain with urination, increased urinary frequency, increased urinary urgency, blood in his urine or stool, syncope or a near syncopal episode, recent trauma or falls, bowel incontinence, bladder incontinence, bowel retention, bladder retention, or any other complaints at this time. Onset (ago): week(s) (1) Radiation: non-radiation Severity: mild Severity scale (1-10): 2 Quality: dull Pain Consistency: intermittent Relieving factors: none Exacerbating factors: movement Associated symptoms: denies other symptoms Treatments prior to arrival: none Related Data Home Medications Medication Instructions Recorded Confirmed loratadine 10 mg tablet 1 tab PO DAILY 11/02/21 04/22/22 sertraline 50 mg tablet 50 mg PO DAILY 01/06/22 04/22/22 atorvastatin 40 mg tablet mg PO 01/14/22 04/26/22 ibuprofen 800 mg tablet 800 mg PO TID 01/14/22 04/26/22 tadalafil 5 mg tablet 5 mg PO DAILY 01/14/22 04/26/22 trazodone 50 mg tablet 25 mg PO BEDTIME PRN Sleep 04/26/22 01/06/22 Previous Rx's Medication Instructions Recorded atorvastatin 20 mg tablet 20 mg PO DAILY #90 tabs 07/15/21 cholecalciferol (vitamin D3) 50 50 mcg PO DAILY 90 days #90 caps 07/15/21 mcg (2,000 unit) capsule leg brace (SORIN Knee Brace) #1 ea 12/10/21 doxycycline hyclate 100 mg capsule 100 mg PO BID 14 days #28 caps 04/22/22 cyclobenzaprine 5 mg tablet 5 mg PO TID PRN back pain 7 days 04/26/22 #21 tabs Allergies Allergy/AdvReac Type Severity Reaction Status Date / Time No Known Allergies Allergy Verified 04/22/22 12:34 Review of Systems Constitutional: Constitutional: Reports no additional constitutional complaints, Denies chills, Denies fever(s) and Denies night sweats Eyes: Eyes: Reports no additional eye complaints, Denies blurry vision, Denies change in vision, Denies diplopia, Denies eye discharge, Denies loss of vision and Denies eye pain ENT: Denies dizziness Cardiovascular: Cardiovascular: Reports no additional cardiovascular complaints, Denies chest pain, Denies lightheadedness, Denies Loss of Consciousness and Denies dyspnea Respiratory: Respiratory: Reports no additional respiratory complaints and Denies dyspnea Gastrointestinal: Gastrointestinal: Reports no additional gastrointestinal complaints, Denies abdominal pain, Denies melena, Denies hematochezia, Denies change in bowel habits and Denies change in stool character Comments: right sided flank pain Genitourinary: Genitourinary: Reports no additional male genitourinary complaints, Denies hematuria, Denies oliguria, Denies difficulty urinating, Denies dysuria, Denies urinary frequency, Denies urinary hesitancy, Denies urinary incontinence and Denies urinary urgency Musculoskeletal: Musculoskeletal: Reports no additional musculoskeletal complaints, Denies numbness and Denies tingling Neurologic: Denies dizziness, Denies loss of vision, Denies numbness and Denies tingling Psychiatric: Psychiatric: Reports no additional psychiatric complaints Endocrine: Endocrine: Reports no additional endocrine complaints Hematologic/Lymphatic: Hematologic/Lymphatic: Reports no additional hematologic/lymphatic complaints Allergic/Immunologic: Allergic/Immunologic: Reports no additional allergic/immunologic complaints [facility] Past Medical History Attestation statement: The following information was validated with the patient. Source: old records reviewed Medical History Dermatitis Dizziness Erectile dysfunction Generalized headaches Insomnia Obesity (BMI 30-39.9) Orthostatic hypotension Overweight (BMI 25.0-29.9) Primary osteoarthritis of left knee Pure hypercholesterolemia Vitamin D deficiency Surgical History H/O left knee surgery History of right inguinal hernia repair History of splenectomy Family History Family History Father No problems noted. Mother Diabetes Social History Social History Housing: Condominium Alcohol intake: current Alcohol intake frequency: a few times a week Patient Tobacco Use Status: Never used Tobacco Second Hand Smoke Exposure: No Advance Directives: No Advance Directives Information Provided: No Current occupational status: employed Cognitive needs: No Hearing needs: No Vision needs: No Physical Exam ED Vital Signs: Vital Signs - 24 hr 04/26/22 14:48 Temperature 98.3 F Pulse Rate 73 Respiratory Rate 18 Blood Pressure 134/85 Pulse Oximetry 98 Oxygen Delivery Method Room Air BMI result Body Mass Index 30.2 Const General: cooperative, no acute distress, alert and awake Nutritional Appearance: well nourished Orientation/consciousness: patient oriented x3 Limitations: no limitations HENMT Head: Yes normal to inspection and Yes atraumatic Ears: hearing grossly normal bilaterally and external ears normal General nose exam: Normal external nose present, no nasal discharge noted and no epistaxis Face and sinus: Yes normal facial exam, No abrasion and No laceration Mouth: Normal oral and palatal mucosa present, no drooling and no muffled voice Eyes General: appearance normal, both eyes and all related structures Periorbital: periorbital findings normal Eyelids: Yes eyelids normal Conjunctivae: conjunctivae normal Pupils: Equal, round and reactive pupils present EOM: EOMs intact bilaterally Neck Neck: Yes normal visual inspection, Yes full ROM and Yes no lymphadenopathy Chest Chest palpation & inspection: normal inspection of the chest Resp Effort & Inspection: normal respiratory effort and able to speak in complete sentences Auscultation: clear to auscultation bilaterally Cardio Rate: regular rate Rhythm: regular rhythm GI Other: pain to palpation of the soft tissue on the right flank Inspection: Yes normal to inspection Neuro General: patient oriented x3 and moves all extremities Cranial nerves: Yes Equal, round and reactive pupils present Cognition (Neuro): normal cognition Motor exam (neuro): 5/5 motor strength present throughout Sensory Exam: Normal double simultaneous stimulation for sensation Coordination: [id number] test normal Extrem General: Yes normal to inspection, Yes full ROM and Yes capillary refill normal Psych Appearance: grossly normal Mental Status: mental status grossly normal Affect: normal affect Attitude: cooperative Thought process: Normal thought process present Thought content: Normal thought content present Insight: Good insight present (Psych) Medical Decision Making MDM Narrative Medical decision making narrative: Patient is a 62 year old male presenting to the emergency department today with right sided flank pain. Patient's physical exam showed reproducible right flank pain. Patient's blood work was unremarkable. I explained my physical exam findings as well as all test results to the patient. I answered all questions asked by the patient. Patient received IM Toradol and PO Flexeril which he s tated helped his symptoms significantly. I stressed the importance of the patient taking his medication as prescribed. I stressed the importance of the patient following up with his primary care provider. I stressed the importance of the patient returning to the emergency department immediately if his symptoms were to worsen or if he were to develop any dizziness, shortness of breath, difficulty breathing, chest pain, blurry vision, loss of vision, nausea, vomiting, abdominal pain, fever, chills, back pain, or any other complaints. Patient verbalized agreement and understanding with this treatment plan and discharge. Medical Records Medical records reviewed: Yes I reviewed the patient's medical records. Lab Data Lab results reviewed: Yes I reviewed the patient's lab results. Result diagrams: 04/26/22 14:52 04/26/22 14:52 Labs: Lab Results 04/26/22 04/26/22 Range/Units 14:52 14:52 WBC 3.4 L (4.8-10.8) X10*3/uL RBC 5.27 (4.60-5.80) X10*6/uL Hgb 14.9 (14.0-18.0) g/dl Hct 46.4 (42.0-52.0) % MCV 88.0 (80.0-98.0) fL MCH 28.3 (27.0-33.0) pg MCHC 32.1 (31.0-36.0) g/dl RDW 13.1 (11.0-16.0) % Plt Count 218 (160-400) X10*3/uL MPV 9.8 (9.4-12.4) fL Immature Gran % (Auto) 0.3 (0.0-0.4) % Neut % (Auto) 47.8 (45-73) % Lymph % (Auto) 39.1 (20-40) % Crockett % (Auto) 10.2 (2-11) % Eos % (Auto) 2.0 (0-4) % Baso % (Auto) 0.6 (0-2) % Lymph # (Auto) 1.3 (1.2-4.9) X10*3/uL Crockett # (Auto) 0.4 (0.1-1.2) X10*3/uL Eos # (Auto) 0.1 (0.0-0.4) X10*3/uL Baso # (Auto) 0.0 (0.0-0.2) X10*3/uL Abs Immat Gran (auto) 0.01 (0.00-0.03) X10*3/uL Absolute Neuts (auto) 1.6 L (2.0-8.3) x10*3/uL Absolute Nucleated RBC 0.000 (0.0-0.012) X10*3/uL Nucleated RBC % (auto) 0.0 (0.0-0.2) /100WBC Sodium 142 (135-145) mmol/L Potassium 4.4 (3.3-5.1) mmol/L Chloride 108 (96-108) mmol/L Carbon Dioxide 26 (22-29) mmol/L Anion Gap 12 (12-20) BUN 17 H (9-16) mg/dL Creatinine 1.24 (0.5-1.4) mg/dL Estim Creat Clear Calc 82.3 Estimated GFR 59 Random Glucose 102 (60-115) mg/dL Calcium 9.1 (8.4-10.2) mg/dL Total Bilirubin 0.4 (0.0-1.0) mg/dL AST 22 (5-37) U/L ALT 23 (0-40) U/L Alkaline Phosphatase 48 (39-117) U/L Total Protein 8.2 H (6.5-8.0) g/dL Albumin 4.3 (3.5-5.0) g/dL Discharge Plan Discharge Clinical Impression: Musculoskeletal pain Patient Disposition: Home, Self-Care Instructions: Musculoskeletal Pain (ED) Additional Instructions: Follow up with your primary care provider. Return to the emergency department immediately if your symptoms worsen or if you develop any dizziness, shortness of breath, difficulty breathing, chest pain, blurry vision, loss of vision, nausea, vomiting, abdominal pain, fever, chills, back pain, or any other complaints. Prescriptions: New cyclobenzaprine 5 mg tablet 5 mg PO TID PRN (Reason: back pain) 7 Days Qty: 21 0RF No Action loratadine 10 mg tablet 1 tab PO DAILY sertraline 50 mg tablet 50 mg PO DAILY trazodone 50 mg tablet 25 mg PO BEDTIME PRN (Reason: Sleep) atorvastatin 20 mg tablet 20 mg PO DAILY Qty: 90 1RF cholecalciferol (vitamin D3) 50 mcg (2,000 unit) capsule 50 mcg PO DAILY 90 Days Qty: 90 3RF doxycycline hyclate 100 mg capsule 100 mg PO BID 14 Days Qty: 28 0RF tadalafil 5 mg tablet 5 mg PO DAILY ibuprofen 800 mg tablet 800 mg PO TID atorvastatin 40 mg tablet PO (DME) SORIN Knee Brace Misc See Rx Instructions .Route Qty: 1 0RF Rx Instructions: As directed Referrals: Matthew Baca MD [Primary Care Provider] - Interventions: ED Discharge Assessment Last Done: 04/26/22 15:57 Discharge Date/Time: 04/26/22 16:23 Print Language: Korean
[2022-04-26] MEDS: Cyclobenzaprine HCl 5 MG TABLET PO (15:42)
== END 2022-04-26 16:23 | disposition home or self-care (01) ==
PROVIDERS: Emergency Provider Emergency Medicine; PCP Internal Medicine
DX: M79.10 Myalgia, unspecified site (principal)
CPT/HCPCS: 36415; 80053; 85025; 99283

== ENCOUNTER 2022-05-31 18:00 | Emergency (ER) | payer OTHER, SELFPAY ==
[2022-05-31 18:30] VITALS: BP 106/79; PULSE 71; RESP 20; TEMP 36.9; O2SAT 98; BMI 30.8
[2022-05-31 19:14] LABS: MANUAL DIFF FLAG NO
[2022-05-31 19:28] LABS: Anion Gap 15 (12-20); Blood Urea Nitrogen 16 mg/dL (9-16); Carbon Dioxide 24 mmol/L (22-29); Chloride 106 mmol/L (96-108); Creatinine Clr Calc Pharmacy 79.9; Estimated Glomerular Filt Rate 57; Glucose Random 93 mg/dL (60-115); Potassium 4.1 mmol/L (3.3-5.1); Sodium 141 mmol/L (135-145)
[2022-05-31 19:30] LABS: Basophils Percent Auto 0.5 % (0-2); Eosinophils Absolute Auto 0.1 X10*3/uL (0.0-0.4); Eosinophils Percent Auto 2.5 % (0-4); Hematocrit 47.6 % (42.0-52.0); Hemoglobin 15.5 g/dl (14.0-18.0); Lymphocytes Absolute Auto 1.7 X10*3/uL (1.2-4.9); Lymphocytes Percent Auto 41.3 % (20-40); Mean Corpuscular HGB Conc 32.6 g/dl (31.0-36.0); Mean Corpuscular Hemoglobin 28.4 pg (27.0-33.0); Mean Corpuscular Volume 87.3 fL (80.0-98.0); Mean Platelet Volume 10.1 fL (9.4-12.4); Monocytes Absolute Auto 0.3 X10*3/uL (0.1-1.2); Monocytes Percent Auto 7.6 % (2-11); Neutrophils Percent Auto 48.1 % (45-73); Platelet Count 228 X10*3/uL (160-400); Red Blood Count 5.45 X10*6/uL (4.60-5.80); Red Cell Distribution Width 12.7 % (11.0-16.0); White Blood Count 4.1 X10*3/uL (4.8-10.8)
== END 2022-05-31 23:47 | disposition left against medical advice (07) ==
PROVIDERS: Emergency Provider Emergency Medicine; PCP Internal Medicine
DX: R10.30 Lower abdominal pain, unspecified (principal); N50.819 Testicular pain, unspecified
CPT/HCPCS: 36415; 80048; 85025; 99281; 99283

== ENCOUNTER 2022-06-24 06:00 | Outpatient (REF) | payer OTHER, SELFPAY ==
[2022-06-24 07:49] LABS: Alanine Aminotransferase 17 U/L (0-40); Albumin Level 4.3 g/dL (3.5-5.0); Alkaline Phosphatase 54 U/L (39-117); Anion Gap 16 (12-20); Aspartate Amino Transferase 18 U/L (5-37); Bilirubin Total 0.5 mg/dL (0.0-1.0); Blood Urea Nitrogen 17 mg/dL (9-16); Calcium 9.1 mg/dL (8.4-10.2); Carbon Dioxide 27 mmol/L (22-29); Chloride 105 mmol/L (96-108); Cholesterol 210 mg/dL; Estimated Glomerular Filt Rate 58; Glucose Fasting 95 mg/dL (60-99); HDL Cholesterol 48 mg/dL; LDL Cholesterol Calculated 127 mg/dl; Potassium 4.2 mmol/L (3.3-5.1); Sodium 144 mmol/L (135-145); Total Protein 7.9 g/dL (6.5-8.0); Triglycerides 176 mg/dL
== END 2022-06-24 06:01 | disposition home or self-care (01) ==
LOC: HO.LAB 06:00
PROVIDERS: PCP Internal Medicine; Visit Provider Internal Medicine
DX: E78.00 Pure hypercholesterolemia, unspecified (principal)
CPT/HCPCS: 36415; 80053; 80061

== ENCOUNTER 2022-07-10 11:44 | Emergency (ER) | payer OTHER, SELFPAY ==
[2022-07-10 11:57] VITALS: BP 117/79; PULSE 81; RESP 17; TEMP 36.6; O2SAT 98; BMI 31.4
--- NOTE | 2022-07-10 12:14 | ED.GENADULT ---
HPI - General Adult General Chief complaint: General Medical Stated complaint: possible hemorrhoid Time Seen by Provider: 07/10/22 12:14 Source: patient Mode of arrival: ambulatory History of Present Illness HPI narrative: 62-year-old male with a past medical history of dermatitis, insomnia, obesity, orthostatic hypotension, HLD, vitamin-D deficiency, presenting to the ED complaining of rectal pain/lump since this morning. Reports history of fissure many years ago. Denies any rectal bleeding, blood when wiping, constipation, diarrhea, abdominal pain, nausea, vomiting, fever Onset (ago): day(s) Related Data Home Medications Medication Instructions Recorded Confirmed sertraline 50 mg tablet 50 mg PO DAILY 01/06/22 06/25/22 ibuprofen 800 mg tablet 800 mg PO TID 01/14/22 06/25/22 tadalafil 5 mg tablet 5 mg PO DAILY 01/14/22 06/25/22 trazodone 50 mg tablet 25 mg PO BEDTIME PRN Sleep 04/26/22 06/25/22 atorvastatin 40 mg tablet 20 mg PO BEDTIME 06/25/22 06/25/22 loratadine 10 mg tablet 10 mg PO DAILY 06/25/22 06/25/22 Previous Rx's Medication Instructions Recorded cholecalciferol (vitamin D3) 50 50 mcg PO DAILY 90 days #90 caps 07/15/21 mcg (2,000 unit) capsule leg brace (SORIN Knee Brace) #1 ea 12/10/21 cyclobenzaprine 5 mg tablet 5 mg PO TID PRN back pain 7 days 04/26/22 #21 tabs hydrocortisone 1 % topical cream 1 appl NM DAILY #28.4 grams 07/10/22 with perineal applicator lidocaine 5 % topical ointment 1 appl topical BID PRN pain #30 07/10/22 grams Allergies Allergy/AdvReac Type Severity Reaction Status Date / Time No Known Allergies Allergy Verified 06/25/22 10:32 Review of Systems Review of Systems: Constitutional: No Fever, No Chills, No Fatigue, No Malaise ENT/Mouth: No Ear Pain, No Nasal Congestion, No sore throat, No Rhinorrhea, No Swallowing Difficulty Eyes: No Eye Pain, No Swelling, No Redness, No Vision Changes Cardiovascular: No Chest Pain, No SOB, No Edema, No Palpitations Respiratory: No Cough, No Sputum, No Dyspnea Gastrointestinal: No Nausea, No Vomiting, No Diarrhea, No Constipation, No Abdominal pain, No Hematochezia, No Melena, +rectal pain Genitourinary: No Dysuria, No Urinary Frequency, No Hematuria, No Urgency Musculoskeletal: No joint pain, No Myalgias, No Joint Swelling Skin: No Skin Lesions, No rash Neuro: No Weakness, No Loss of Consciousness, No Dizziness, No Headache Yes all other systems are reviewed and are negative Constitutional: Constitutional: Reports as per [facility] Past Medical History Attestation statement: The following information was validated with the patient. Medical History Dermatitis Dizziness Erectile dysfunction Generalized headaches Insomnia Obesity (BMI 30-39.9) Orthostatic hypotension Overweight (BMI 25.0-29.9) Primary osteoarthritis of left knee Pure hypercholesterolemia Vitamin D deficiency Surgical History H/O left knee surgery History of right inguinal hernia repair History of splenectomy Family History Family History Father No problems noted. Mother Diabetes Social History Social History Housing: Condominium Alcohol intake: current Alcohol intake frequency: a few times a week Patient Tobacco Use Status: Never used Tobacco Second Hand Smoke Exposure: No Advance Directives: No Current occupational status: employed Cognitive needs: No Hearing needs: No Vision needs: No Physical Exam ED Vital Signs: Vital Signs - 24 hr 07/10/22 11:57 Temperature 98 F Pulse Rate 81 Respiratory Rate 17 Blood Pressure 117/79 Pulse Oximetry 98 Oxygen Delivery Method Room Air BMI result Body Mass Index 31.4 Const General: cooperative, healthy appearing and no acute distress Orientation/consciousness: patient oriented x3 Limitations: no limitations HENMT Head: Yes normal to inspection and Yes atraumatic Ears: hearing grossly normal bilaterally General nose exam: Normal external nose present Face and sinus: Yes normal facial exam Eyes General: appearance normal, both eyes and all related structures EOM: EOMs intact bilaterally Neck Neck: Yes normal visual inspection and Yes no meningeal signs Resp Effort & Inspection: normal respiratory effort and no respiratory distress Auscultation: clear to auscultation bilaterally Cardio Rate: regular rate Heart sounds: S1 normal heart sound present and S2 normal heart sound present GI Inspection: Yes normal to inspection Palpation (GI): Soft to palpation, nontender, no guarding and not rigid Other: + prolapsed internal hemorrhoid noted on exam at 07:00 o'clock region. No active bleeding. No surrounding cellulitis. No evidence of thrombosis. No appreciable fissure or abscess General: Yes no CVA tenderness Back/Spine/Pelvis Back: no CVA tenderness Skin Rashes: no rashes Wounds: no wounds Neuro General: patient oriented x3, tone normal and no meningeal signs Gait exam (Neuro): Normal gait present Extrem General: Yes normal to inspection Medical Decision Making MDM Narrative Medical decision making narrative: 62-year-old male with a past medical history of dermatitis, insomnia, obesity, orthostatic hypotension, HLD, vitamin-D deficiency, presenting to the ED complaining of rectal pain/lump since this morning. On exam vital signs stable, NAD, nontoxic appearing, physical exam as above with noted prolapsed internal hemorrhoid, no evidence of thrombosis or active bleeding Discussed with patient topical hydrocortisone/lidocaine, Sitz baths and colorectal follow-up Results discussed with patient including worrisome signs and symptoms and strict return precautions, and when to return to the emergency department. They verbalized understanding and feel safe for discharge at this time. Medical Records Medical records reviewed: Yes I reviewed the patient's medical records. Lab Data Lab results reviewed: Yes I reviewed the patient's lab results. Discharge Plan Discharge Clinical Impression: Internal prolapsed hemorrhoids Patient Disposition: Home, Self-Care Instructions: Hemorrhoids (ED) Additional Instructions: Topical hydrocortisone is a steroid which will help with inflammation and pain. Topical lidocaine is a numbing medication. Practice Sitz baths at home When applying ointment/cream See can mix in a 1:1 ratio Please follow-up with the colorectal doctor. If symptoms persist or worsen, you develop rectal bleeding, fever, abdominal pain, or not able to have bowel movements return to the emergency department Prescriptions: New hydrocortisone 1 % cream with perineal applicator 1 appl NM DAILY Qty: 28.4 0RF lidocaine 5 % ointment 1 appl topical BID PRN (Reason: pain) Qty: 30 0RF No Action sertraline 50 mg tablet 50 mg PO DAILY trazodone 50 mg tablet 25 mg PO BEDTIME PRN (Reason: Sleep) loratadine 10 mg tablet 10 mg PO DAILY cyclobenzaprine 5 mg tablet 5 mg PO TID PRN (Reason: back pain) 7 Days Qty: 21 0RF cholecalciferol (vitamin D3) 50 mcg (2,000 unit) capsule 50 mcg PO DAILY 90 Days Qty: 90 3RF tadalafil 5 mg tablet 5 mg PO DAILY ibuprofen 800 mg tablet 800 mg PO TID atorvastatin 40 mg tablet 20 mg PO BEDTIME (DME) SORIN Knee Brace Misc See Rx Instructions .Route Qty: 1 0RF Rx Instructions: As directed [place] [facility] [place] [facility] [place] Group] Matthew Baca MD [Primary Care Provider] -
== END 2022-07-10 13:03 | disposition home or self-care (01) ==
PROVIDERS: Emergency Provider Emergency Medicine Emergency Medical Services; PCP Internal Medicine
DX: K64.8 Other hemorrhoids (principal); E78.00 Pure hypercholesterolemia, unspecified; E66.9 Obesity, unspecified; Z68.31 Body mass index [BMI] 31.0-31.9, adult
CPT/HCPCS: 99282; 99283

== ENCOUNTER 2022-10-11 07:23 | Emergency (ER) | payer OTHER, SELFPAY ==
--- NOTE | ~2022-10-11 | CT_ITS ---
EXAMINATION: CT PELVIS WITH CONTRAST CLINICAL INFORMATION: Rule out rectal abscess COMPARISON: None TECHNIQUE: Helical scanning was performed with submillimeter collimation through the pelvis with the use of oral contrast and during bolus intravenous injection of 85 mL of Omnipaque 350 intravenous contrast. Sagittal and coronal multiplanar 2-D reconstructions were obtained. This CT examination was performed using dose optimization techniques as appropriate, variously including the following: *Automated exposure control *Adjustment of mA and/or kV according to patient size (this includes techniques or standardized protocols for targeted exams where dose is matched to indication/reason for exam; i.e. extremities or head) *Use of iterative reconstruction technique DLP: 346 mGy-cm FINDINGS: There is asymmetric increased soft tissue seen adjacent to the left lower rectum and anus, for example axial image 51 series 2, coronal reconstructed image 93. This area measures approximately 1.7 x 2.7 x 3 cm in transverse AP and longitudinal dimension. No discrete fluid collection is seen. No abnormal air is seen. There is slight skin thickening of the left gluteal fold. The ischiorectal fat is normal. No pelvic fluid collection or abnormal air collection is seen. There is mild diverticulosis of the colon. No evidence of diverticulitis, colitis or proctitis. The appendix is not seen and may have been removed as there are surgical clips in this region. The bladder is normal. The prostate gland is normal. No ascites. Normal vascular structures. Shotty bilateral inguinal lymphadenopathy. Mild degenerative changes of the hip joints and spine. CT/CT pelvis w IV con IMPRESSION: Asymmetric soft tissue adjacent to the left side of the lower rectum and anus. No fluid or air collection seen. Mild diverticulosis.
[2022-10-11 07:41] VITALS: BP 118/80; PULSE 72; RESP 18; TEMP 37.2; O2SAT 95; BMI 30.8
--- NOTE | 2022-10-11 10:14 | ED_ITS ---
HPI - General Adult General Chief complaint: General Medical Stated complaint: Cyst in anus Time Seen by Provider: 10/11/22 10:05 Source: patient Mode of arrival: ambulatory History of Present Illness HPI narrative: 62-year-old male with a past medical history of insomnia, obesity, orthostatic hypotension, osteoarthritis, HLD, presenting to ED complaining of painful boil to rectum x 1 week. Reports feels like area is enlarging, with constant discomfort. Denies rectal bleeding, fever, dysuria/hematuria, constipation/diarrhea, pus drainage Onset (ago): week(s) Related Data Home Medications Medication Instructions Recorded Confirmed sertraline 50 mg tablet 50 mg PO DAILY 01/06/22 06/25/22 ibuprofen 800 mg tablet 800 mg PO TID 01/14/22 06/25/22 tadalafil 5 mg tablet 5 mg PO DAILY 01/14/22 06/25/22 trazodone 50 mg tablet 25 mg PO BEDTIME PRN Sleep 04/26/22 06/25/22 atorvastatin 40 mg tablet 20 mg PO BEDTIME 06/25/22 06/25/22 loratadine 10 mg tablet 10 mg PO DAILY 06/25/22 06/25/22 Previous Rx's Medication Instructions Recorded cholecalciferol (vitamin D3) 50 50 mcg PO DAILY 90 days #90 caps 07/15/21 mcg (2,000 unit) capsule leg brace (SORIN Knee Brace) #1 ea 12/10/21 cyclobenzaprine 5 mg tablet 5 mg PO TID PRN back pain 7 days 04/26/22 #21 tabs hydrocortisone 1 % topical cream 1 appl NV DAILY #28.4 grams 07/10/22 with perineal applicator lidocaine 5 % topical ointment 1 appl topical BID PRN pain #30 07/10/22 grams cephalexin 500 mg capsule 500 mg PO QID 7 days #28 caps 10/11/22 doxycycline hyclate 100 mg tablet 100 mg PO BID 7 days #14 tabs 10/11/22 Allergies Allergy/AdvReac Type Severity Reaction Status Date / Time No Known Allergies Allergy Verified 10/11/22 07:44 Review of Systems Review of Systems: Constitutional: No Fever, No Chills, No Fatigue, No Malaise ENT/Mouth: No Ear Pain, No Nasal Congestion, No sore throat, No Rhinorrhea, No Swallowing Difficulty Eyes: No Eye Pain, No Swelling, No Redness, No Vision Changes Cardiovascular: No Chest Pain, No SOB, No Orthopnea, No Edema, No Palpitations Respiratory: No Cough, No Dyspnea Gastrointestinal: No Nausea, No Vomiting, No Diarrhea, No Constipation, No Abdominal pain, No Hematochezia, No Melena, +rectal pain Genitourinary: No irregular bleeding, No Dysuria, No Urinary Frequency, No Hematuria, No Flank Pain Musculoskeletal: No joint pain, No Myalgias, No Joint Swelling Skin: No Skin Lesions, No rash Neuro: No Weakness, No Dizziness, No Headache Yes all other systems are reviewed and are negative Constitutional: Constitutional: Reports as per [facility] Past Medical History Attestation statement: The following information was validated with the patient. Medical History Dermatitis Dizziness Erectile dysfunction Generalized headaches Insomnia Obesity (BMI 30-39.9) Orthostatic hypotension Overweight (BMI 25.0-29.9) Primary osteoarthritis of left knee Pure hypercholesterolemia Vitamin D deficiency Surgical History H/O left knee surgery History of right inguinal hernia repair History of splenectomy Family History Family History Father No problems noted. Mother Diabetes Social History Social History Housing: Condominium Alcohol intake: current Alcohol intake frequency: a few times a week Patient Tobacco Use Status: Never used Tobacco Smoked in Last 30 Days: No Second Hand Smoke Exposure: No Use of substances other than those prescribed or required for medical reasons: No Advance Directives: No Advance Directives Information Provided: No Current occupational status: employed Cognitive needs: No Hearing needs: No Vision needs: No Physical Exam ED Vital Signs: Vital Signs - 24 hr 10/11/22 07:41 10/11/22 10:27 Temperature 99.0 F Pulse Rate 72 61 Respiratory Rate 18 Blood Pressure 118/80 130/85 Pulse Oximetry 95 98 Oxygen Delivery Method Room Air Room Air BMI result Body Mass Index 30.8 Const General: cooperative, healthy appearing and no acute distress Orientation/consciousness: patient oriented x3 Limitations: no limitations HENMT Head: Yes normal to inspection and Yes atraumatic Ears: hearing grossly normal bilaterally General nose exam: Normal external nose present Face and sinus: Yes normal facial exam Eyes General: appearance normal, both eyes and all related structures EOM: EOMs intact bilaterally Neck Neck: Yes normal visual inspection and Yes no meningeal signs Resp Effort & Inspection: normal respiratory effort and no respiratory distress Cardio Rate: regular rate Heart sounds: S1 normal heart sound present and S2 normal heart sound present GI Other: + internal prolapsed hemorrhoid at 05:00 o'clock position without evidence of thrombosis or active bleeding. + erythematous indurated abscess to left perianal area with tenderness to palpation. No tenderness on digital rectal exam. No fluctuance/pointing. No drainage. No warmth or crepitus Inspection: Yes normal to inspection Palpation (GI): Soft to palpation, nontender, no guarding and not rigid Rectal Exam - Male: Yes Internal hemorrhoid(s) present, No Fistula present (GI) and Yes tenderness General: Yes no CVA tenderness Back/Spine/Pelvis Back: no CVA tenderness Skin Rashes: no rashes Wounds: no wounds Neuro General: patient oriented x3, tone normal and no meningeal signs Gait exam (Neuro): Normal gait present Extrem General: Yes normal to inspection Course Course Course Narrative: -1242--chronic leukopenia. Labs otherwise reassuring. UA not infected CT pelvis w IV con IMPRESSION: Asymmetric soft tissue adjacent to the left side of the lower rectum and anus. No fluid or air collection seen. Mild diverticulosis. >> will discharge patient with p.o. antibiotics. Results discussed with patient including worrisome signs and symptoms and strict return precautions, and when to return to the emergency department. They verbalized understanding and feel safe for discharge at this time. Medications Administered Discontinued Medications Generic Name Dose Route Start Last Admin Trade Name Freq PRN Reason Stop Dose Admin Iohexol 85 ml 10/11/22 11:49 10/11/22 11:50 Iohexol 350 Mg/Ml 100 Ml Infus..Btl IV 10/11/22 11:50 85 ml ONCE ONE Administration Medical Decision Making Medical Decision Making [facility] Narrative: 62-year-old male with a past medical history of insomnia, obesity, orthostatic hypotension, osteoarthritis, HLD, presenting to ED complaining of painful boil to rectum x 1 week. On exam vital signs stable, NAD, nontoxic appearing, abdomen soft/nontender, physical exam as above with noted indurated abscess to perianal area. No tenderness on digital rectal exam. Internal prolapsed hemorrhoid also noted without evidence of thrombosis or active bleeding. Concern for perianal vs perirectal abscess vs fistula vs cellulitis. No evidence of Roger gangrene's. Low suspicion for GI bleed Plan: Labs, UA, CT pelvis, re-evaluate Please refer to course for remaining clinical decision making, interpretation of labs/imaging results, and discussions with consultants and/or family members. Differential Diagnosis Differential Diagnoses: The differential diagnosis associated with the presentation includes as above Lab Data MDM Lab Attestation statement: I reviewed the patient's lab results. 10/11/22 10:32 10/11/22 10:32 Labs: Lab Results 10/11/22 10/11/22 10/11/22 Range/Units 10:32 10:32 10:34 WBC 4.3 L (4.8-10.8) X10*3/uL RBC 5.15 (4.60-5.80) X10*6/uL Hgb 14.8 (14.0-18.0) g/dl Hct 45.5 (42.0-52.0) % MCV 88.3 (80.0-98.0) fL MCH 28.7 (27.0-33.0) pg MCHC 32.5 (31.0-36.0) g/dl RDW 12.6 (11.0-16.0) % Plt Count 223 (160-400) X10*3/uL MPV 9.7 (9.4-12.4) fL Immature Gran % (Auto) 0.5 H (0.0-0.4) % Neut % (Auto) 52.0 (45-73) % Lymph % (Auto) 37.0 (20-40) % Jay % (Auto) 8.4 (2-11) % Eos % (Auto) 1.4 (0-4) % Baso % (Auto) 0.7 (0-2) % Lymph # (Auto) 1.6 (1.2-4.9) X10*3/uL Jay # (Auto) 0.4 (0.1-1.2) X10*3/uL Eos # (Auto) 0.1 (0.0-0.4) X10*3/uL Baso # (Auto) 0.0 (0.0-0.2) X10*3/uL Abs Immat Gran (auto) 0.02 (0.00-0.03) X10*3/uL Absolute Neuts (auto) 2.2 (2.0-8.3) x10*3/uL Absolute Nucleated RBC 0.000 (0.0-0.012) X10*3/uL Nucleated RBC % (auto) 0.0 (0.0-0.2) /100WBC Sodium 142 (135-145) mmol/L Potassium 4.5 (3.3-5.1) mmol/L Chloride 106 (96-108) mmol/L Carbon Dioxide 27 (22-29) mmol/L Anion Gap 14 (12-20) BUN 15 (9-16) mg/dL Creatinine 0.96 (0.5-1.4) mg/dL Estim Creat Clear Calc 107.4 Estimated GFR > 60 Random Glucose 87 (60-115) mg/dL Calcium 9.1 (8.4-10.2) mg/dL Total Bilirubin 0.6 (0.0-1.0) mg/dL Direct Bilirubin 0.2 (0.0-0.5) mg/dL AST 17 (5-37) U/L ALT 15 (0-40) U/L Alkaline Phosphatase 55 (39-117) U/L Total Protein 7.4 (6.5-8.0) g/dL Albumin 4.1 (3.5-5.0) g/dL Urine Color Yellow Urine Appearance Clear Urine pH 7.0 (5.0-9.0) Ur Specific Union 1.025 (1.005-1.025) Urine Protein 30 (1+) H (Neg-Trace) mg/dL Urine Glucose (UA) Negative (Negative) mg/dL Urine Ketones Negative (Negative) mg/dL Urine Blood Negative (Negative) Urine Nitrite Negative (Negative) Ur Leukocyte Esterase Negative (Negative) Urine RBC 0-2 (0-2) /HPF Urine WBC 0-5 (0-5) /HPF Ur Squamous Epith Cells 0-2 (0-2) /HPF Urine Bacteria None Seen (None Seen) Hyaline Casts 0-2 (0-2) /LPF Radiology Impression Discussion of test interpretation with radiology: I have reviewed the radiologist's reading. External Record Review External record reviewed: Outpatient record Prescription Management I considered prescription management with: Pain Medication and Antibiotic Discharge Plan Discharge Clinical Impression: Abscess, Cellulitis Patient Disposition: Home, Self-Care Instructions: Cellulitis (ED), Abscess (ED) Additional Instructions: Your blood work was reassuring. Your CT scan shows soft tissue swelling/infection to the left side of her rectum. There is no fluid or air collection. We are concerned this is the beginning of an abscess. Please apply warm compresses/practice Sitz baths Keflex and doxycycline or antibiotics please take as prescribed If area is growing, begins to bleed, has pus drainage, or pointing return to the ED immediately Prescriptions: New cephalexin 500 mg capsule 500 mg PO QID 7 Days Qty: 28 0RF doxycycline hyclate 100 mg tablet 100 mg PO BID 7 Days Qty: 14 0RF No Action sertraline 50 mg tablet 50 mg PO DAILY trazodone 50 mg tablet 25 mg PO BEDTIME PRN (Reason: Sleep) loratadine 10 mg tablet 10 mg PO DAILY cyclobenzaprine 5 mg tablet 5 mg PO TID PRN (Reason: back pain) 7 Days Qty: 21 0RF hydrocortisone 1 % cream with perineal applicator 1 appl NV DAILY Qty: 28.4 0RF lidocaine 5 % ointment 1 appl topical BID PRN (Reason: pain) Qty: 30 0RF cholecalciferol (vitamin D3) 50 mcg (2,000 unit) capsule 50 mcg PO DAILY 90 Days Qty: 90 3RF tadalafil 5 mg tablet 5 mg PO DAILY ibuprofen 800 mg tablet 800 mg PO TID atorvastatin 40 mg tablet 20 mg PO BEDTIME (DME) SORIN Knee Brace Misc See Rx Instructions .Route Qty: 1 0RF Rx Instructions: As directed Referrals: Matthew Baca MD [Primary Care Provider] - 3 days Interventions: ED Discharge Assessment Last Done: 10/11/22 13:48 Discharge Date/Time: 10/11/22 13:41
[2022-10-11 10:27] VITALS: BP 130/85; PULSE 61; O2SAT 98
[2022-10-11 10:36] LABS: MANUAL DIFF FLAG NO
[2022-10-11 10:42] LABS: Appearance Urine Clear; Color Urine Yellow; Glucose Urine UA Negative (Negative); Leukocyte Esterase Urine Negative (Negative); Nitrite Urine Negative (Negative); Specific Gravity - Urine 1.025 (1.005-1.025); UMIC TRIGGER UACC YES; Urine Blood Negative (Negative); Urine Ketones Negative (Negative); Urine Protein 30 (1+) mg/dL (Neg-Trace)
[2022-10-11 10:42] LABS: Basophils Percent Auto 0.7 % (0-2); Eosinophils Absolute Auto 0.1 X10*3/uL (0.0-0.4); Eosinophils Percent Auto 1.4 % (0-4); Hematocrit 45.5 % (42.0-52.0); Hemoglobin 14.8 g/dl (14.0-18.0); Imm Gran Abs Auto 0.02 X10*3/uL (0.00-0.03); Imm Gran Pct Auto 0.5 % (0.0-0.4); Lymphocytes Absolute Auto 1.6 X10*3/uL (1.2-4.9); Mean Corpuscular HGB Conc 32.5 g/dl (31.0-36.0); Mean Corpuscular Hemoglobin 28.7 pg (27.0-33.0); Mean Corpuscular Volume 88.3 fL (80.0-98.0); Mean Platelet Volume 9.7 fL (9.4-12.4); Monocytes Absolute Auto 0.4 X10*3/uL (0.1-1.2); Monocytes Percent Auto 8.4 % (2-11); Neutrophils Absolute Auto 2.2 x10*3/uL (2.0-8.3); Platelet Count 223 X10*3/uL (160-400); Red Blood Count 5.15 X10*6/uL (4.60-5.80); Red Cell Distribution Width 12.6 % (11.0-16.0); White Blood Count 4.3 X10*3/uL (4.8-10.8)
[2022-10-11 10:44] LABS: Bacteria Urine None Seen (None Seen); Hyaline Casts Urine 0-2 /LPF (0-2); RBC Urine 0-2 /HPF (0-2); Squamous Epithelial Cell Urine 0-2 /HPF (0-2); WBC Urine 0-5 /HPF (0-5)
[2022-10-11 11:01] LABS: Alanine Aminotransferase 15 U/L (0-40); Albumin Level 4.1 g/dL (3.5-5.0); Alkaline Phosphatase 55 U/L (39-117); Anion Gap 14 (12-20); Aspartate Amino Transferase 17 U/L (5-37); Bilirubin Direct 0.2 mg/dL (0.0-0.5); Bilirubin Total 0.6 mg/dL (0.0-1.0); Blood Urea Nitrogen 15 mg/dL (9-16); Calcium 9.1 mg/dL (8.4-10.2); Carbon Dioxide 27 mmol/L (22-29); Chloride 106 mmol/L (96-108); Creatinine Clr Calc Pharmacy 107.4; Estimated Glomerular Filt Rate > 60; Glucose Random 87 mg/dL (60-115); Potassium 4.5 mmol/L (3.3-5.1); Sodium 142 mmol/L (135-145); Total Protein 7.4 g/dL (6.5-8.0)
[2022-10-11] MEDS: iohexoL 350 MG/ML 100 ML INFUS..BTL 85 ML IV (11:50)
== END 2022-10-11 13:41 | disposition home or self-care (01) ==
PROVIDERS: Physician Assistant; Emergency Provider Emergency Medicine; PCP Internal Medicine
DX: K61.0 Anal abscess (principal); R10.2 Pelvic and perineal pain; Z79.899 Other long term (current) drug therapy
CPT/HCPCS: 36415; 72193; 80048; 80076; 81001; 85025; 99284; Q9967

== ENCOUNTER 2022-12-21 05:55 | Outpatient (REF) | payer OTHER, SELFPAY ==
[2022-12-21 06:10] LABS: MANUAL DIFF FLAG NO
[2022-12-21 07:33] LABS: Basophils Percent Auto 0.8 % (0-2); Eosinophils Absolute Auto 0.1 X10*3/uL (0.0-0.4); Eosinophils Percent Auto 1.6 % (0-4); Hematocrit 47.4 % (42.0-52.0); Imm Gran Abs Auto 0.01 X10*3/uL (0.00-0.03); Imm Gran Pct Auto 0.3 % (0.0-0.4); Lymphocytes Absolute Auto 1.5 X10*3/uL (1.2-4.9); Lymphocytes Percent Auto 41.8 % (20-40); Mean Corpuscular HGB Conc 31.6 g/dl (31.0-36.0); Mean Corpuscular Hemoglobin 28.2 pg (27.0-33.0); Mean Corpuscular Volume 89.1 fL (80.0-98.0); Mean Platelet Volume 10.3 fL (9.4-12.4); Monocytes Absolute Auto 0.4 X10*3/uL (0.1-1.2); Monocytes Percent Auto 9.8 % (2-11); Neutrophils Absolute Auto 1.7 x10*3/uL (2.0-8.3); Neutrophils Percent Auto 45.7 % (45-73); Platelet Count 208 X10*3/uL (160-400); Red Blood Count 5.32 X10*6/uL (4.60-5.80); Red Cell Distribution Width 12.9 % (11.0-16.0); White Blood Count 3.7 X10*3/uL (4.8-10.8)
[2022-12-21 08:11] LABS: Alanine Aminotransferase 16 U/L (0-40); Alkaline Phosphatase 52 U/L (39-117); Anion Gap 7 (12-20); Aspartate Amino Transferase 18 U/L (5-37); Bilirubin Total 0.7 mg/dL (0.0-1.0); Blood Urea Nitrogen 15 mg/dL (9-16); Calcium 9.2 mg/dL (8.4-10.2); Carbon Dioxide 32 mmol/L (22-29); Chloride 108 mmol/L (96-108); Cholesterol 208 mg/dL; Estimated Glomerular Filt Rate > 60; Glucose Fasting 87 mg/dL (60-99); HDL Cholesterol 52 mg/dL; LDL Cholesterol Calculated 126 mg/dl; Potassium 4.4 mmol/L (3.3-5.1); Sodium 143 mmol/L (135-145); Total Protein 7.3 g/dL (6.5-8.0); Triglycerides 153 mg/dL
[2022-12-21 08:13] LABS: TSH reflex Free T4 4.47 uIU/mL (0.32-4.0); Vitamin D 25-OH Total 56.2 ng/mL (>30)
[2022-12-21 08:54] LABS: Free T4 (Free Thyroxine) 0.94 ng/dL (0.71-1.85)
== END 2022-12-21 05:56 | disposition home or self-care (01) ==
LOC: HO.LAB 05:55
PROVIDERS: PCP Internal Medicine; Visit Provider Internal Medicine
DX: I10 Essential (primary) hypertension (principal); E55.9 Vitamin D deficiency, unspecified; E78.00 Pure hypercholesterolemia, unspecified
CPT/HCPCS: 36415; 80053; 80061; 82306; 84439; 84443; 85025

== ENCOUNTER 2023-03-29 10:22 | Outpatient (AMB) | payer OTHER, SELFPAY ==
--- NOTE | 2023-03-29 11:19 | AM.OFFWIN_ITS ---
Intake Vital Signs 03/29/23 11:20 Weight 240 lb BP 120/76 Blood Pressure Location Rt brachial Position Sitting Pulse 90 Pulse Source Pulse Oximeter Temp 98.3 F Temp Source Temporal Artery Scan Pulse Oximetry (%) 98 Oxygen Delivery Method Room Air Intake Visit Reasons: EST/stiff neack/headache(lobby) Intake Note: Patient here for stiff neck, headaches and diarrhea for the past two days. Patient Tobacco Use Status: Never used Tobacco Allergies No Known Allergies Allergy (Verified 03/29/23 11:35) Medication List - Last Reconciled 03/29/23 by Rufino Mckinnon MD atorvastatin 20 mg PO BEDTIME cholecalciferol (vitamin D3) 50 mcg PO DAILY 90 days ibuprofen 800 mg PO TID lidocaine 5% 1 appl topical BID PRN sertraline 50 mg PO DAILY trazodone 25 mg PO BEDTIME PRN Do you need a note to return to daycare/school/sports/work: No HPI EST/stiff neack/headache(lobby) HPI Details 63-year-old male presents to the office for a sick visit. Patient is a . He has 2 complaints. Patient is complaining of diarrhea for the past 10 days. He is having 8-10 bowel movements a day. Reports no symptoms of cramping. Wakes up in the middle of the night to go to the bathroom. No nausea or vomiting. Poor appetite. No fevers or chills. Also complaining of stiffness in the neck for the past few days. Pain on moving his neck. [facility] Medical History Dermatitis Dizziness Erectile dysfunction Generalized headaches Insomnia Obesity (BMI 30-39.9) Orthostatic hypotension Overweight (BMI 25.0-29.9) Primary osteoarthritis of left knee Pure hypercholesterolemia Vitamin D deficiency Surgical History H/O left knee surgery History of right inguinal hernia repair History of splenectomy Family History Father No problems noted. Mother Diabetes Social History Housing: Condominium Alcohol intake: current Alcohol intake frequency: a few times a week Patient Tobacco Use Status: Never used Tobacco e-Cigarette/Vaping Use: Never Used Second Hand Smoke Exposure: No Current occupational status: employed Cognitive needs: No Hearing needs: No Vision needs: No Physical Exam Vital Signs: Last Vital Signs Temp 98.3 F 03/29/23 11:20 Pulse 90 03/29/23 11:20 BP 120/76 03/29/23 11:20 Pulse Ox 98 03/29/23 11:20 Oxygen Delivery Method Room Air 03/29/23 11:20 Const General: cooperative and healthy appearing Nutritional Appearance: well nourished Orientation/consciousness: patient oriented x3 Limitations: no limitations HEENT Head: Yes normal to inspection Eyes General: appearance normal, both eyes and all related structures Neck Neck: Yes normal visual inspection Chest Chest palpation & inspection: normal palpation of entire chest wall Resp Effort & Inspection: normal respiratory effort Neuro General: patient oriented x3 Assessment & Plan Assessment & Plan (1) Diarrhea: Code(s): R19.7 - Diarrhea, unspecified Plan: Infectious etiology should be ruled out. Blood work has been ordered. Cipro for 5 days. (2) Sprain of cervical neck: Code(s): S13.9XXA - Sprain of joints and ligaments of unspecified parts of neck, initial encounter Plan: Cyclobenzaprine called in. If symptoms do not improve to follow-up here. Orders: Orders Basic Metabolic Panel Today R19.7 - Diarrhea, unspecified Liver Panel Today R19.7 - Diarrhea, unspecified Complete Blood Count no Diff Today R19.7 - Diarrhea, unspecified Erythrocyte Sedimentation Rate Today R19.7 - Diarrhea, unspecified Coding Level of Care Code Est Pt Level 4 (00172) Diagnoses Diarrhea R19.7 Sprain of cervical neck S13.9XXA
[2023-03-29 11:20] VITALS: BP 120/76; PULSE 90; TEMP 36.8; O2SAT 98
== END 2023-03-29 12:31 | disposition home or self-care (01) ==
PROVIDERS: PCP Internal Medicine; Visit Provider Internal Medicine
DX: R19.7 Diarrhea, unspecified (principal); S13.9XXA Sprain of joints and ligaments of unspecified parts of neck, initial encounter
CPT/HCPCS: 99214

== ENCOUNTER 2023-03-29 11:37 | Outpatient (REF) | payer OTHER, SELFPAY ==
[2023-03-29 13:59] LABS: Hematocrit 47.3 % (42.0-52.0); Hemoglobin 15.1 g/dl (14.0-18.0); Mean Corpuscular HGB Conc 31.9 g/dl (31.0-36.0); Mean Corpuscular Hemoglobin 28.4 pg (27.0-33.0); Mean Corpuscular Volume 89.1 fL (80.0-98.0); Mean Platelet Volume 10.3 fL (9.4-12.4); Platelet Count 255 X10*3/uL (160-400); Red Blood Count 5.31 X10*6/uL (4.60-5.80); Red Cell Distribution Width 12.4 % (11.0-16.0); White Blood Count 3.2 X10*3/uL (4.8-10.8)
[2023-03-29 14:16] LABS: Alanine Aminotransferase 20 U/L (0-40); Albumin Level 4.1 g/dL (3.5-5.0); Alkaline Phosphatase 53 U/L (39-117); Anion Gap 12 (12-20); Aspartate Amino Transferase 15 U/L (5-37); Bilirubin Direct 0.4 mg/dL (0.0-0.5); Bilirubin Total 0.8 mg/dL (0.0-1.0); Blood Urea Nitrogen 10 mg/dL (9-16); Calcium 9.5 mg/dL (8.4-10.2); Carbon Dioxide 27 mmol/L (22-29); Chloride 105 mmol/L (96-108); Estimated Glomerular Filt Rate > 60; Glucose Random 84 mg/dL (60-115); Potassium 3.9 mmol/L (3.3-5.1); Sodium 140 mmol/L (135-145); Total Protein 8.4 g/dL (6.5-8.0)
[2023-03-29 14:34] LABS: Erythrocyte Sedimentation Rate 34 MM/HR (0-15)
== END 2023-03-29 11:38 | disposition home or self-care (01) ==
LOC: HO.HMGCLDS 11:37
PROVIDERS: PCP Internal Medicine; Visit Provider Internal Medicine
DX: R19.7 Diarrhea, unspecified (principal)
CPT/HCPCS: 36415; 80048; 80076; 85027; 85652

== ENCOUNTER 2023-04-21 15:28 | Outpatient (AMB) | payer OTHER, SELFPAY ==
--- NOTE | 2023-04-21 15:38 | MHC.OFFWIV ---
Intake Vital Signs 04/21/23 15:40 Weight 235 lb BP 112/80 Blood Pressure Location Rt brachial Position Sitting Pulse 74 Pulse Source Pulse Oximeter Pulse Oximetry (%) 98 Oxygen Delivery Method Room Air Intake Visit Reasons: EP Fat lip Intake Note: Patient here for fat lip that he woke up with. no known injuries. Patient Tobacco Use Status: Never used Tobacco Allergies No Known Allergies Allergy (Verified 04/21/23 15:40) Do you need a note to return to daycare/school/sports/work: No HPI HPI Comments History of Present Illness Details 63-year-old male presents for swollen lip x1 day. Patient states that he woke up this morning with a fat lip. He denies any trauma, new foods or medications. lip is not painful. Denies shortness of breath sore throat sores in the mouth PFSH Medical History Dermatitis Dizziness Erectile dysfunction Generalized headaches Insomnia Obesity (BMI 30-39.9) Orthostatic hypotension Overweight (BMI 25.0-29.9) Primary osteoarthritis of left knee Pure hypercholesterolemia Vitamin D deficiency Surgical History H/O left knee surgery History of right inguinal hernia repair History of splenectomy Family History Father No problems noted. Mother Diabetes Social History Housing: Condominium Alcohol intake: current Alcohol intake frequency: a few times a week Patient Tobacco Use Status: Never used Tobacco e-Cigarette/Vaping Use: Never Used Second Hand Smoke Exposure: No Current occupational status: employed Cognitive needs: No Hearing needs: No Vision needs: No Review of Systems Const All systems reviewed & are unremarkable except as noted in HPI and below ENT Details: Swollen upper lip Physical Exam Vital Signs: Last Vital Signs Pulse 74 04/21/23 15:40 BP 112/80 04/21/23 15:40 Pulse Ox 98 04/21/23 15:40 Oxygen Delivery Method Room Air 04/21/23 15:40 Const General: comfortable, no acute distress and alert HEENT Other: mild swelling of the upper lip small abrasion noted in the center of the swelling. Assessment & Plan Assessment & Plan (1) Lip swelling: Code(s): R22.0 - Localized swelling, mass and lump, head Plan mild swelling of the upper lip small abrasion noted in the center of the swelling. in the absence of any new medications or new food groups low suspicion for allergic reaction. Patient is not on Jai inhibitors will suspicion for angioedema. Given no respiratory compromise but does recommend trying antihistamines and nice. Given abrasion likely cut their bitten lip possibly in their sleep Discharge instructions, follow up and treatment are discussed with patient in my usual fashion. Alternatives in treatment are also discussed. The patient will return for worsening symptoms or as needed. Advised that any labs/imaging ordered will be followed up on and contact made if further treatment needed. Counseled that patient's condition may require further evaluation and/or treatment. Symptoms of concern for worsening disorder discussed in detail in my customary manner. Patient does verbalize understanding of the plan, there are no apparent barriers to communication. The patient is given the opportunity to ask questions and have them answered to his/her satisfaction Coding Level of Care Code Est Pt Level 2 (70721) Diagnoses Lip swelling R22.0
[2023-04-21 15:40] VITALS: BP 112/80; PULSE 74; O2SAT 98
== END 2023-04-21 15:57 | disposition home or self-care (01) ==
PROVIDERS: PCP Internal Medicine; Visit Provider Physician Assistant
DX: R22.0 Localized swelling, mass and lump, head (principal)
CPT/HCPCS: 99212

== ENCOUNTER 2023-06-20 06:02 | Outpatient (REF) | payer OTHER, SELFPAY ==
[2023-06-20 06:12] LABS: MANUAL DIFF FLAG NO
[2023-06-20 07:13] LABS: Basophils Percent Auto 0.5 % (0-2); Eosinophils Absolute Auto 0.1 X10*3/uL (0.0-0.4); Hematocrit 47.3 % (42.0-52.0); Hemoglobin 15.5 g/dl (14.0-18.0); Imm Gran Abs Auto 0.01 X10*3/uL (0.00-0.03); Imm Gran Pct Auto 0.3 % (0.0-0.4); Lymphocytes Absolute Auto 1.3 X10*3/uL (1.2-4.9); Lymphocytes Percent Auto 34.3 % (20-40); Mean Corpuscular HGB Conc 32.8 g/dl (31.0-36.0); Mean Corpuscular Hemoglobin 28.9 pg (27.0-33.0); Mean Corpuscular Volume 88.1 fL (80.0-98.0); Mean Platelet Volume 9.7 fL (9.4-12.4); Monocytes Absolute Auto 0.4 X10*3/uL (0.1-1.2); Neutrophils Absolute Auto 2.1 x10*3/uL (2.0-8.3); Neutrophils Percent Auto 53.9 % (45-73); Platelet Count 224 X10*3/uL (160-400); Red Blood Count 5.37 X10*6/uL (4.60-5.80); Red Cell Distribution Width 12.8 % (11.0-16.0); White Blood Count 3.9 X10*3/uL (4.8-10.8)
[2023-06-20 07:54] LABS: Alanine Aminotransferase 25 U/L (0-40); Albumin Level 4.3 g/dL (3.5-5.0); Alkaline Phosphatase 54 U/L (39-117); Anion Gap 13 (12-20); Aspartate Amino Transferase 21 U/L (5-37); Bilirubin Total 0.5 mg/dL (0.0-1.0); Blood Urea Nitrogen 16 mg/dL (9-16); Calcium 9.4 mg/dL (8.4-10.2); Carbon Dioxide 27 mmol/L (22-29); Chloride 108 mmol/L (96-108); Cholesterol 199 mg/dL (<200); Estimated Glomerular Filt Rate > 60; Glucose Fasting 97 mg/dL (60-99); HDL Cholesterol 46 mg/dL (>40); LDL Cholesterol Calculated 129 mg/dL (<100); Potassium 4.4 mmol/L (3.3-5.1); Sodium 144 mmol/L (135-145); Total Protein 8.4 g/dL (6.5-8.0); Triglycerides 123 mg/dL (<150)
[2023-06-20 08:10] LABS: TSH reflex Free T4 2.84 uIU/mL (0.32-4.0); Vitamin D 25-OH Total 62.1 ng/mL (>30)
[2023-06-20 09:12] LABS: Appearance Urine Clear; Color Urine Yellow; Glucose Urine UA Negative (Negative); Leukocyte Esterase Urine Negative (Negative); Nitrite Urine Negative (Negative); PH 5.5 (5.0-9.0); Urine Blood Negative (Negative); Urine Ketones Negative (Negative); Urine Protein Negative (Neg-Trace)
== END 2023-06-20 06:03 | disposition home or self-care (01) ==
LOC: HO.LAB 06:02
PROVIDERS: PCP Internal Medicine; Visit Provider Internal Medicine
DX: Z00.00 Encounter for general adult medical examination without abnormal findings (principal); E78.00 Pure hypercholesterolemia, unspecified; E55.9 Vitamin D deficiency, unspecified; I10 Essential (primary) hypertension; R30.0 Dysuria; Z12.5 Encounter for screening for malignant neoplasm of prostate
CPT/HCPCS: 36415; 80053; 80061; 81003; 82306; 84153; 84443; 85025

== ENCOUNTER 2023-06-30 10:50 | Outpatient (AMB) | payer OTHER, SELFPAY ==
[2023-06-30 10:59] VITALS: BP 142/90; PULSE 79; O2SAT 98; BMI 31.1
--- NOTE | 2023-06-30 10:59 | A.OFFPC_ITS ---
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 Required: No Accompanied by: Self / Same As Patient Allergies No Known Allergies Allergy (Verified 06/30/23 11:37) Medication List - Last Reconciled 06/30/23 by Matthew Baca MD atorvastatin 20 mg PO BEDTIME cholecalciferol (vitamin D3) 50 mcg PO DAILY 90 days cyclobenzaprine 10 mg PO BEDTIME ibuprofen 800 mg PO TID lidocaine 5% 1 appl topical BID PRN sertraline 50 mg PO DAILY trazodone 25 mg PO BEDTIME PRN Tobacco use date assessed: 06/30/23 Dental Screening Dental Screen Date: 06/30/23 Did you have a dental visit in the last 12 months?: Yes Did you have a dental problem in the last 6 months where you did not have access to dental care?: No Was dental information given to patient?: Patient has dentist HPI Annual Exam HPI Details Patient comes in today for his annual physical examination States that he feels okay He denies any headaches or dizziness Denies any chest pains, no shortness of breath No nausea/ vomiting, no abdominal pain No change in bowel habits noted Denies any acute urinary symptoms He had an MRI of his left knee done at [facility] last week on 06/25/2023, which both lateral and medial meniscal tear Patient states he will be calling [facility] to schedule an appt to see orthopedics EFRAIN and he does not need a referral Had his follow up labs done last week - to discuss his results He had his repeat colonoscopy done last year on 08/02/[address] Wilson; was advised repeat colonoscopy in 10 years (2031) [facility] Medical History Vitamin D deficiency Insomnia Generalized headaches Overweight (BMI 25.0-29.9) Erectile dysfunction Obesity (BMI 30-39.9) Primary osteoarthritis of left knee Pure hypercholesterolemia Dermatitis Orthostatic hypotension Dizziness Surgical History H/O left knee surgery History of right inguinal hernia repair History of splenectomy Family History Father No problems noted. Mother Diabetes Social History Housing: Condominium Alcohol intake: current Alcohol intake frequency: a few times a week Patient Tobacco Use Status: Never used Tobacco e-Cigarette/Vaping Use: Never Used Second Hand Smoke Exposure: No Current occupational status: employed Cognitive needs: No Hearing needs: No Vision needs: No Questionnaire PHQ-9 Over the last 2 weeks, how often have you been bothered by any of the following problems? 1. Little interest or pleasure in doing things: several days 2. Feeling down, depressed, or hopeless: several days 3. Trouble falling or staying asleep, or sleeping too much: several days 4. Feeling tired or having little energy: several days 5. Poor appetite or overeating: not at all 6. Feeling bad about yourself - or that you are a failure or have let yourself or your family down: not at all 7. Trouble concentrating on things, such as reading the newspaper or watching television: not at all 8. Moving or speaking so slowly that other people could have noticed. Or the opposite - being so fidgety or restless that you have been moving around a lot more than usual: not at all 9. Thoughts that you would be better off or of hurting yourself in some way: not at all Total score: 4 Depression Screening Interpretation: Positive Depression Screening Follow-up: Existing condition and In treatment Depression Screening Done: Yes 89051 - PHQ-9 Billing: Yes Source: Developed by Drs. Danie Zamudio, Olesya Raya, Turner Joiner and colleagues, with an educational jeaneth from [employer]. Thrive Questionnaire Date Thrive assessed: 06/30/23 I am a: Patient What is your living situation today?: I have a steady place to live Within the past 12 months, did the food you bought not last and you didn't have the money to get more?: Never true Within the past 12 months, did you worry whether your food would run out before you got money to buy more?: Never true Do you have trouble paying for medicines?: No Do you have trouble getting transportation to medical appointments?: No Do you have trouble paying your heating and electricity bill?: No Do you have trouble taking care of your child, family member or friend?: No Do you have trouble with day-to-day activities such as bathing, preparing meals, shopping, managing finances, etc.?: No Are you currently unemployed and looking for a job?: No Are you interested in more education?: No Please select the resources that you would like help with: None Currently or been in a relationship where the following occur: no concerns reported AUDIT C Alcohol Use Questionnaire (AUDIT-C) 1. How often do you have a drink containing alcohol?: 2-3 times a week 2. How many drinks containing alcohol do you have on a typical day when you are drinking?: 1 or 2 3. How often do you have six or more drinks on one occasion?: Never Total Score: 3 Score Reviewed/Action Taken: Yes JENNYFER-7 AMB Questionnaire JENNYFER-7 Date JENNYFER - 7 assessed: 06/30/23 Feeling nervous, anxious, or on edge: 0 = Not at all Not being able to stop or control worryin = Not at all Worrying too much about different things: 0 = Not at all Trouble relaxin = Not at all Being so restless that it is hard to sit still: 0 = Not at all Becoming easily annoyed or irritable: 0 = Not at all Feeling afraid as if something awful might happen: 0 = Not at all Total JENNYFER-7 score (0-4 normal; 5-9 mild; 10-14 moderate; 15-21 severe): 0 Source: Developed by Drs. Danie Zamudio, Olesya Raya, Turner Joiner and colleagues, with an educational jeaneth from [employer]. Review of Systems Const Denies chills, Denies fatigue, Denies fever(s), Denies headache(s), Denies malaise and Denies weakness Eyes Denies blurry vision, Denies change in vision, Denies irritation and Denies itchy eyes ENT Denies dysphagia, Denies dizziness, Denies otalgia, Denies headache(s), Denies nasal congestion, Denies neck pain, Denies odynophagia and Denies sore throat Card Denies chest pain, Denies rapid heart rate, Denies irregular heart rhythm, Denies palpitations and Denies dyspnea Resp Denies chest congestion, Denies cough, Denies dyspnea and Denies wheezing GI Denies abdominal pain, Denies bloating, Denies constipation, Denies dysphagia, Denies heartburn, Denies diarrhea, Denies nausea, Denies odynophagia and Denies vomiting Denies hematuria, Denies difficulty urinating, Denies dysuria, Denies urinary frequency and Denies urinary urgency Musc Denies back pain, Reports arthralgias (left knee), Denies joint swelling, Denies muscle weakness and Denies neck pain Skin/Breast Denies change in pigmentation, Denies lesions, Denies rash and Denies unusual bruising Neuro Denies dizziness, Denies headache(s), Denies paresthesias and Denies weakness Endo Denies fatigue and Denies palpitations Aller/Immun Denies itchy eyes and Denies wheezing Physical exam (Primary Care) Vital Signs: Last Vital Signs Pulse 79 06/30/23 10:59 BP 142/90 H 06/30/23 10:59 Pulse Ox 98 06/30/23 10:59 Oxygen Delivery Method Room Air 06/30/23 10:59 BMI result Body Mass Index 31.1 Tobacco/Smoking Status: Tobacco use Status Tobacco use date assessed 06/30/23 06/30/23 11:01 Patient Tobacco Use Status Never used Tobacco 06/30/23 11:01 e-Cigarette/Vaping Use Never Used 06/30/23 11:01 PHQ-9: PHQ-9 Score PHQ-9: Total score 4 06/30/23 11:38 Depression Screening Interpretation: Positive Depression Screening Follow-up: Existing condition and In treatment Thrive Assessment: Date of Thrive Assessment Date Thrive assessed 06/30/23 06/30/23 11:01 Currently or been in a relationship where the following occur: no concerns reported Const General: no acute distress, alert and awake Orientation/consciousness: patient oriented x3 HENMT Head: Yes normocephalic and Yes atraumatic Ears: external ears normal, TM's normal bilaterally and EAC's normal General nose exam: No nasal discharge present Face and sinus: Yes normal facial exam and Yes sinuses nontender Teeth and gingiva: dentition normal Throat: Yes posterior oropharynx normal and Yes tonsils normal (no TP congestion) Eyes Eyelids: Yes eyelids normal Conjunctivae: conjunctivae normal Pupils: Equal, round and reactive pupils present EOM: EOMs intact bilaterally Neck Neck: Yes no lymphadenopathy and Yes supple Thyroid: Thyroid normal Resp Auscultation: clear to auscultation bilaterally, no rales and no wheezes Cardio Rate: regular rate Rhythm: regular rhythm Heart sounds: no murmurs GI Palpation (GI): Soft to palpation, nontender and No hepatosplenomegaly present Auscultation: normal bowel sounds General: Yes no CVA tenderness Back/Spine/Pelvis Back: no CVA tenderness Thoracic/Lumbar Spine: thoracic and lumbar spine normal to inspection Skin Lesions: no lesions Rashes: no rashes Neuro General: patient oriented x3, moves all extremities, no focal motor deficits and CN's II-XI intact bilaterally Cranial nerves: Yes Equal, round and reactive pupils present Cognition (Neuro): normal cognition Gait exam (Neuro): Normal gait present Extrem General: Yes no clubbing, cyanosis or edema Left lower extremity: knee Details: tenderness Location: of the medial joint line and of the lateral joint line; no swelling Results Reviewed Results Reviewed: Laboratory Tests 06/20/23 06/20/23 06/20/23 06:10 06:11 06:11 WBC 3.9 L Hgb 15.5 Hct 47.3 Plt Count 224 Sodium 144 Potassium 4.4 Creatinine 1.12 Estimated GFR > 60 Fasting Glucose 97 Calcium 9.4 AST 21 ALT 25 Triglycerides 123 Cholesterol 199 LDL Cholesterol, Calc 129 H HDL Cholesterol 46 PSA Screen 0.60 25-OH Vitamin D Total 62.1 TSH 2.84 Ur Specific [place] 1.020 Urine Protein Negative Urine Glucose (UA) Negative Urine Blood Negative Assessment and Plan Assessment & Plan (1) Annual physical exam: Code(s): Z00.00 - Encounter for general adult medical examination without abnormal findings Plan: Results of his labs done last week reviewed and discussed with patient He is up-to-date with his colon cancer screening - will not be due for repeat until 2031 (10 years) (2) Pure hypercholesterolemia: Code(s): E78.00 - Pure hypercholesterolemia, unspecified Plan: Reinforced low cholesterol diet Continue Atorvastatin 20 mg QD for now but is advised that we will have to consider increasing his does if his cholesterol numbers still do not improve significantly over the next few months Will recheck his labs and fasting lipids in 6 months for follow up (3) Degenerative joint disease of left knee: Code(s): M17.12 - Unilateral primary osteoarthritis, left knee Qualifiers: Osteoarthritis type: unspecified Qualified Code(s): M17.12 - Unilateral primary osteoarthritis, left knee Plan: S/P lateral meniscal repair and physical therapy last year - did experience some improvement of symptoms initially after surgery but physical therapy did help as well MRI of the left knee done at [facility] last week revealed (+) lateral and medial meniscal tear as well as degenerative changes in the knee Patient states that he will be calling [facility] to schedule a follow up appt with them for his left knee EFRAIN Continue OTC Ibuprofen PRN for now (4) Vitamin D deficiency: Code(s): E55.9 - Vitamin D deficiency, unspecified Plan: Improving - continue Vitamin D3 2000 units QD (5) Erectile dysfunction: Code(s): N52.9 - Male erectile dysfunction, unspecified Qualifiers: Erectile dysfunction type: unspecified Qualified Code(s): N52.9 - Male erectile dysfunction, unspecified Plan: Serum testosterone level checked recenlty came out normal Follow-up with urology as scheduled (6) Insomnia: Code(s): G47.00 - Insomnia, unspecified Qualifiers: Insomnia type: unspecified Qualified Code(s): G47.00 - Insomnia, unspecified Plan: Sleep hygiene reinforced Continue Trazodone 50 mg 1/2 tablet QD PRN (7) Major depression, recurrent: Code(s): F33.9 - Major depressive disorder, recurrent, unspecified Qualifiers: Active/Remission status: currently active Major depression episode severity: unspecified Qualified Code(s): F33.9 - Major depressive disorder, recurrent, unspecified Plan: Continue Sertraline 50 mg QD Follow up with psychiatry as scheduled (8) Obesity (BMI 30-39.9): Code(s): E66.9 - Obesity, unspecified Plan: Reinforced diet/exercise as tolerated/lose weight Plan Follow up in 6 months Orders: Orders Lipid Panel 6 Months E78.00 - Pure hypercholesterolemia, unspecified Comprehensive Carver. Panel Fast 6 Months E78.00 - Pure hypercholesterolemia, unspecified Coding Level of Care Code Est Pt Prev Care 40-64y([id number]) Diagnoses Annual physical exam Z00.00 Pure hypercholesterolemia E78.00 Osteoarthritis of left knee, unspecified osteoarthritis type M17.12 Osteoarthritis type: unspecified Vitamin D deficiency E55.9 Erectile dysfunction, unspecified erectile dysfunction type N52.9 Erectile dysfunction type: unspecified Insomnia, unspecified type G47.00 Insomnia type: unspecified Episode of recurrent major depressive disorder, unspecified depression episode severity F33.9 Active/Remission status: currently active Major depression episode severity: unspecified Obesity (BMI 30-39.9) E66.9
== END 2023-06-30 11:57 | disposition home or self-care (01) ==
PROVIDERS: Visit Provider Internal Medicine
DX: Z00.00 Encounter for general adult medical examination without abnormal findings (principal); F33.9 Major depressive disorder, recurrent, unspecified; E78.00 Pure hypercholesterolemia, unspecified; M17.12 Unilateral primary osteoarthritis, left knee; E55.9 Vitamin D deficiency, unspecified; N52.9 Male erectile dysfunction, unspecified; G47.00 Insomnia, unspecified; E66.9 Obesity, unspecified; Z68.31 Body mass index [BMI] 31.0-31.9, adult
CPT/HCPCS: 99396

== ENCOUNTER 2023-12-26 05:58 | Outpatient (REF) | payer OTHER, SELFPAY ==
[2023-12-26 08:30] LABS: Alanine Aminotransferase 29 U/L (0-40); Albumin Level 4.1 g/dL (3.5-5.0); Alkaline Phosphatase 61 U/L (39-117); Anion Gap 15 (12-20); Aspartate Amino Transferase 27 U/L (5-37); Bilirubin Total 0.5 mg/dL (0.0-1.0); Blood Urea Nitrogen 13 mg/dL (9-16); Calcium 9.5 mg/dL (8.4-10.2); Carbon Dioxide 25 mmol/L (22-29); Chloride 105 mmol/L (96-108); Cholesterol 162 mg/dL (<200); Estimated Glomerular Filt Rate > 60; Glucose Fasting 91 mg/dL (60-99); HDL Cholesterol 47 mg/dL (>40); LDL Cholesterol Calculated 97 mg/dL (<100); Potassium 4.2 mmol/L (3.3-5.1); Sodium 141 mmol/L (135-145); Total Protein 8.5 g/dL (6.5-8.0); Triglycerides 91 mg/dL (<150)
== END 2023-12-26 05:59 | disposition home or self-care (01) ==
LOC: HO.LAB 05:58
PROVIDERS: PCP Internal Medicine; Visit Provider Internal Medicine
DX: E78.00 Pure hypercholesterolemia, unspecified (principal)
CPT/HCPCS: 36415; 80053; 80061

== ENCOUNTER 2023-12-29 09:33 | Outpatient (AMB) | payer OTHER, SELFPAY ==
[2023-12-29 09:37] VITALS: BP 110/78; PULSE 73; O2SAT 98
--- NOTE | 2023-12-29 09:37 | A.OFFPC_ITS ---
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 Accompanied by: Self / Same As Patient Allergies No Known Allergies Allergy (Verified 12/29/23 10:16) Medication List - Last Reconciled 12/29/23 by Matthew Baca MD atorvastatin 20 mg PO BEDTIME cholecalciferol (vitamin D3) 50 mcg PO DAILY 90 days cyclobenzaprine 10 mg PO BEDTIME ibuprofen 800 mg PO TID lidocaine 5% 1 appl topical BID PRN sertraline 50 mg PO DAILY trazodone 25 mg PO BEDTIME PRN Tobacco use date assessed: 12/29/23 Dental Screening Dental Screen Date: 06/30/23 HPI hyperlipidemia HPI Details Patient comes in today for his follow up visit States that he feels okay except for increased allergy symptoms lately - mostly nasal and sinus congestion and sneezing He started taking OTC Loratadine 10 mg QD yesterday and states that he will call for further instructions if this does not help with his allergies over the next few days He denies any headaches or dizziness; denies any fever or sore throat Denies any chest pains, no shortness of breath No nausea/ vomiting, no abdominal pain No change in bowel habits noted Had his follow up labs done a few days ago - to discuss his results [facility] Medical History Vitamin D deficiency Insomnia Generalized headaches Overweight (BMI 25.0-29.9) Erectile dysfunction Obesity (BMI 30-39.9) Primary osteoarthritis of left knee Pure hypercholesterolemia Dermatitis Orthostatic hypotension Dizziness Surgical History H/O left knee surgery History of right inguinal hernia repair History of splenectomy Family History Father No problems noted. Mother Diabetes Social History Housing: [facility] Alcohol intake: current Alcohol intake frequency: a few times a week Patient Tobacco Use Status: Never used Tobacco e-Cigarette/Vaping Use: Never Used Second Hand Smoke Exposure: No Current occupational status: employed Cognitive needs: No Hearing needs: No Vision needs: No Questionnaire PHQ-9 Over the last 2 weeks, how often have you been bothered by any of the following problems? [id number] - PHQ-9 Billing: Patient declined-do not bill Source: Developed by Drs. Danie Zamudio, Olesya Raya, Turner Joiner and colleagues, with an educational jeaneth from [employer]. Thrive Questionnaire Date Thrive assessed: 12/29/23 I am a: Patient What is your living situation today?: I choose not to answer this question Within the past 12 months, did the food you bought not last and you didn't have the money to get more?: I choose not to answer this question Within the past 12 months, did you worry whether your food would run out before you got money to buy more?: I choose not to answer this question Do you have trouble paying for medicines?: I choose not to answer this question Do you have trouble getting transportation to medical appointments?: I choose not to answer this question Do you have trouble paying your heating and electricity bill?: I choose not to answer this question Do you have trouble taking care of your child, family member or friend?: I choose not to answer this question Do you have trouble with day-to-day activities such as bathing, preparing meals, shopping, managing finances, etc.?: I choose not to answer this question Are you currently unemployed and looking for a job?: I choose not to answer this question Are you interested in more education?: I choose not to answer this question Please select the resources that you would like help with: None Currently or been in a relationship where the following occur: no concerns reported THRIVE Score: 0 AUDIT C Alcohol Use Questionnaire (AUDIT-C) 1. How often do you have a drink containing alcohol?: 2-3 times a week 2. How many drinks containing alcohol do you have on a typical day when you are drinking?: 1 or 2 3. How often do you have six or more drinks on one occasion?: Never Total Score: 3 Score Reviewed/Action Taken: Yes JENNYFER-7 AMB Questionnaire JENNYFER-7 Date JENNYFER - 7 assessed: 12/29/23 Source: Developed by Drs. Danie Zamudio, Olesya Raya, Turner Joiner and colleagues, with an educational jeaneth from [employer]. JENNYFER-7 Assessment Billing JENNYFER-7 Assessment Tool: pt declined-do not bill Review of Systems Const Denies chills, Denies fatigue, Denies fever(s) and Denies headache(s) ENT Denies dysphagia, Denies dizziness, Denies otalgia, Denies headache(s), Reports nasal congestion (increased lately), Denies neck pain, Denies odynophagia and Denies sore throat Card Denies chest pain, Denies rapid heart rate, Denies irregular heart rhythm, Denies palpitations and Denies dyspnea Resp Denies chest congestion, Denies cough, Denies dyspnea and Denies wheezing GI Denies abdominal pain, Denies constipation, Denies dysphagia, Denies heartburn, Denies diarrhea, Denies nausea, Denies odynophagia and Denies vomiting Denies hematuria, Denies difficulty urinating, Denies dysuria and Denies urinary frequency Musc Denies back pain, Reports arthralgias (left knee) and Denies neck pain Skin/Breast Denies rash Neuro Denies dizziness and Denies headache(s) Endo Denies fatigue and Denies palpitations Aller/Immun Reports seasonal rhinorrhea and Denies wheezing Physical exam (Primary Care) Vital Signs: Last Vital Signs Pulse 73 12/29/23 09:37 BP 110/78 12/29/23 09:37 Pulse Ox 98 12/29/23 09:37 Oxygen Delivery Method Room Air 12/29/23 09:37 BMI result Body Mass Index 30.0 Tobacco/Smoking Status: Tobacco use Status Tobacco use date assessed 12/29/23 12/29/23 09:38 Patient Tobacco Use Status Never used Tobacco 12/29/23 09:38 e-Cigarette/Vaping Use Never Used 12/29/23 09:38 Thrive Assessment: Date of Thrive Assessment Date Thrive assessed 12/29/23 12/29/23 09:44 Currently or been in a relationship where the following occur: no concerns reported Const General: no acute distress and alert HENMT Ears: TM's normal bilaterally and EAC's normal Throat: Yes posterior oropharynx normal and Yes tonsils normal (no TP congestion) Neck Neck: Yes no lymphadenopathy and Yes supple Thyroid: Thyroid normal Resp Auscultation: clear to auscultation bilaterally, no rales and no wheezes Cardio Rate: regular rate Rhythm: regular rhythm Heart sounds: no murmurs GI Palpation (GI): Soft to palpation and nontender Auscultation: normal bowel sounds General: Yes no CVA tenderness Back/Spine/Pelvis Back: no CVA tenderness Skin Rashes: no rashes Neuro General: moves all extremities Extrem General: Yes no clubbing, cyanosis or edema Left lower extremity: knee Details: tenderness Location: of the medial joint line and of the lateral joint line; no swelling Results Reviewed Results Reviewed: Laboratory Tests 12/26/23 06:14 Sodium 141 Potassium 4.2 Creatinine 1.19 Estimated GFR > 60 Fasting Glucose 91 Calcium 9.5 AST 27 ALT 29 Triglycerides 91 Cholesterol 162 LDL Cholesterol, Calc 97 HDL Cholesterol 47 Assessment and Plan Assessment & Plan (1) Pure hypercholesterolemia: Code(s): E78.00 - Pure hypercholesterolemia, unspecified Plan: Results of his labs done a few days ago reviewed and discussed with patient - his cholesterol levels have improved significantly from previous Reinforced low cholesterol diet Continue Atorvastatin 20 mg QD Will recheck his labs and fasting lipids in 6 months for follow up (2) Degenerative joint disease of left knee: Code(s): M17.12 - Unilateral primary osteoarthritis, left knee Qualifiers: Osteoarthritis type: unspecified Qualified Code(s): M17.12 - Unilateral primary osteoarthritis, left knee Plan: S/P lateral meniscal repair and physical therapy last year - did experience some improvement of symptoms initially after surgery but physical therapy helped as well MRI of the left knee done at [facility] last year revealed (+) lateral and medial meniscal tear as well as degenerative changes in the knee Continue OTC Ibuprofen PRN Follow up with [facility] as scheduled (3) Vitamin D deficiency: Code(s): E55.9 - Vitamin D deficiency, unspecified Plan: Continue Vitamin D3 2000 units QD (4) Erectile dysfunction: Code(s): N52.9 - Male erectile dysfunction, unspecified Qualifiers: Erectile dysfunction type: unspecified Qualified Code(s): N52.9 - Male erectile dysfunction, unspecified Plan: Serum testosterone level checked last year came out normal Follow-up with urology as scheduled (5) Insomnia: Code(s): G47.00 - Insomnia, unspecified Qualifiers: Insomnia type: unspecified Qualified Code(s): G47.00 - Insomnia, unspecified Plan: Sleep hygiene reinforced Continue Trazodone 50 mg 1/2 tablet QD PRN (6) Major depression, recurrent: Code(s): F33.9 - Major depressive disorder, recurrent, unspecified Qualifiers: Active/Remission status: currently active Major depression episode sev erity: unspecified Qualified Code(s): F33.9 - Major depressive disorder, recurrent, unspecified Plan: Continue Sertraline 50 mg QD Follow up with psychiatry as scheduled (7) Obesity (BMI 30-39.9): Code(s): E66.9 - Obesity, unspecified Plan: Reinforced diet/exercise as tolerated/lose weight - patient has been able to lose at least 9-10 lbs since his last visit Plan To return in 6 months for his next annual physical examination Orders: Orders Complete Blood Count Auto Diff 6 Months D64.9 - Anemia, unspecified, Z00.00 - Encounter for general adult medical examination without abnormal findings TSH reflex Free T4 6 Months E78.00 - Pure hypercholesterolemia, unspecified, Z00.00 - Encounter for general adult medical examination without abnormal findings Prostate Specific Antigen 6 Months N40.0 - Benign prostatic hyperplasia without lower urinary tract symptoms, Z00.00 - Encounter for general adult medical examination without abnormal findings Lipid Panel 6 Months E78.00 - Pure hypercholesterolemia, unspecified, Z00.00 - Encounter for general adult medical examination without abnormal findings Comprehensive [place]. Panel Fast 6 Months E78.00 - Pure hypercholesterolemia, unspecified, Z00.00 - Encounter for general adult medical examination without abnormal findings UA CC w/rflx Micro + Cult 6 Months R30.0 - Dysuria, Z00.00 - Encounter for general adult medical examination without abnormal findings Vitamin D 25-OH Total 6 Months E55.9 - Vitamin D deficiency, unspecified, Z00.00 - Encounter for general adult medical examination without abnormal findings Coding Level of Care Code Est Pt Level 4 (73406) Diagnoses Pure hypercholesterolemia E78.00 Osteoarthritis of left knee, unspecified osteoarthritis type M17.12 Osteoarthritis type: unspecified Vitamin D deficiency E55.9 Erectile dysfunction, unspecified erectile dysfunction type N52.9 Erectile dysfunction type: unspecified Insomnia, unspecified type G47.00 Insomnia type: unspecified Episode of recurrent major depressive disorder, unspecified depression episode severity F33.9 Active/Remission status: currently active Major depression episode severity: unspecified Obesity (BMI 30-39.9) E66.9
== END 2023-12-29 10:20 | disposition home or self-care (01) ==
PROVIDERS: PCP Internal Medicine; Visit Provider Internal Medicine
DX: E78.00 Pure hypercholesterolemia, unspecified (principal); E66.9 Obesity, unspecified; Z68.30 Body mass index [BMI] 30.0-30.9, adult; F33.9 Major depressive disorder, recurrent, unspecified; M17.12 Unilateral primary osteoarthritis, left knee; E55.9 Vitamin D deficiency, unspecified; G47.00 Insomnia, unspecified; N52.9 Male erectile dysfunction, unspecified
CPT/HCPCS: 99214

== ENCOUNTER 2024-06-28 06:02 | Outpatient (REF) | payer OTHER, SELFPAY ==
[2024-06-28 06:22] LABS: MANUAL DIFF FLAG NO
[2024-06-28 07:16] LABS: Basophils Percent Auto 0.6 % (0-2); Eosinophils Absolute Auto 0.1 X10*3/uL (0.0-0.4); Eosinophils Percent Auto 2.5 % (0-4); Hematocrit 47.7 % (42.0-52.0); Hemoglobin 15.6 g/dl (14.0-18.0); Imm Gran Abs Auto 0.01 X10*3/uL (0.00-0.03); Imm Gran Pct Auto 0.3 % (0.0-0.4); Lymphocytes Absolute Auto 1.1 X10*3/uL (1.2-4.9); Lymphocytes Percent Auto 33.3 % (20-40); Mean Corpuscular HGB Conc 32.7 g/dl (31.0-36.0); Mean Corpuscular Hemoglobin 28.8 pg (27.0-33.0); Mean Platelet Volume 9.9 fL (9.4-12.4); Monocytes Absolute Auto 0.3 X10*3/uL (0.1-1.2); Monocytes Percent Auto 9.5 % (2-11); Neutrophils Absolute Auto 1.7 x10*3/uL (2.0-8.3); Neutrophils Percent Auto 53.8 % (45-73); Platelet Count 210 X10*3/uL (160-400); Red Blood Count 5.42 X10*6/uL (4.60-5.80); Red Cell Distribution Width 12.5 % (11.0-16.0); White Blood Count 3.2 X10*3/uL (4.8-10.8)
[2024-06-28 07:52] LABS: Alanine Aminotransferase 49 U/L (0-40); Albumin Level 4.2 g/dL (3.5-5.0); Alkaline Phosphatase 55 U/L (39-117); Anion Gap 14 (12-20); Aspartate Amino Transferase 37 U/L (5-37); Bilirubin Total 0.6 mg/dL (0.0-1.0); Blood Urea Nitrogen 15 mg/dL (9-16); Calcium 9.7 mg/dL (8.4-10.2); Carbon Dioxide 26 mmol/L (22-29); Chloride 107 mmol/L (96-108); Cholesterol 191 mg/dL (<200); Estimated Glomerular Filt Rate > 60; Glucose Fasting 100 mg/dL (60-99); HDL Cholesterol 50 mg/dL (>40); LDL Cholesterol Calculated 116 mg/dL (<100); Potassium 4.2 mmol/L (3.3-5.1); Sodium 143 mmol/L (135-145); Total Protein 8.5 g/dL (6.5-8.0); Triglycerides 128 mg/dL (<150)
[2024-06-28 07:56] LABS: Appearance Urine Clear; Color Urine Yellow; Glucose Urine UA Negative (Negative); Leukocyte Esterase Urine Negative (Negative); Nitrite Urine Negative (Negative); PH 5.5 (5.0-9.0); Urine Blood Negative (Negative); Urine Ketones Trace mg/dL (Negative); Urine Protein Trace mg/dL (Neg-Trace)
[2024-06-28 08:00] LABS: Prostate Specific Antigen 0.59 ng/mL (<0.05-4.0)
[2024-06-28 08:08] LABS: TSH reflex Free T4 2.53 uIU/mL (0.32-4.0); Vitamin D 25-OH Total 64.5 ng/mL (>30)
== END 2024-06-28 06:03 | disposition home or self-care (01) ==
LOC: HO.LAB 06:02
PROVIDERS: PCP Internal Medicine; Visit Provider Internal Medicine
DX: Z00.00 Encounter for general adult medical examination without abnormal findings (principal); N40.0 Benign prostatic hyperplasia without lower urinary tract symptoms; R30.0 Dysuria; E55.9 Vitamin D deficiency, unspecified; D64.9 Anemia, unspecified; E78.00 Pure hypercholesterolemia, unspecified; Z12.5 Encounter for screening for malignant neoplasm of prostate
CPT/HCPCS: 36415; 80053; 80061; 81003; 82306; 84153; 84443; 85025

== ENCOUNTER 2024-07-05 09:54 | Outpatient (AMB) | payer OTHER, SELFPAY ==
[2024-07-05 10:03] VITALS: BP 104/80; PULSE 83; O2SAT 98; BMI 29.8
--- NOTE | 2024-07-05 10:03 | A.OFFPC_ITS ---
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 Required: No Accompanied by: Self / Same As Patient Allergies No Known Allergies Allergy (Verified 07/05/24 10:26) Medication List - Last Reconciled 07/05/24 by Matthew aBca MD atorvastatin 20 mg PO BEDTIME cholecalciferol (vitamin D3) 50 mcg PO DAILY 90 days ibuprofen 800 mg PO TID PRN sertraline 50 mg PO DAILY trazodone 25 mg PO BEDTIME PRN Tobacco use date assessed: 07/05/24 Dental Screening Dental Screen Date: 07/05/24 Did you have a dental visit in the last 12 months?: Yes Did you have a dental problem in the last 6 months where you did not have access to dental care?: No Was dental information given to patient?: Patient has dentist HPI Annual Exam HPI Details Patient comes in today for his annual physical examination States that he feels okay He denies any headaches or dizziness Denies any chest pains, no SOB No nausea/vomiting, no abdominal pain No change in bowel habits noted He denies any acute urinary symptoms He had his follow up labs done last week - to discuss his results He is up-to-date with his screening colonoscopies - states that he had his last one done in [place] a couple of years ago and was advised that his next one should be in 10 years (2031) [facility] Medical History Vitamin D deficiency Insomnia Generalized headaches Overweight (BMI 25.0-29.9) Erectile dysfunction Obesity (BMI 30-39.9) Primary osteoarthritis of left knee Pure hypercholesterolemia Dermatitis Orthostatic hypotension Dizziness Surgical History Hx of colonoscopy H/O left knee surgery History of right inguinal hernia repair History of splenectomy Family History Father No problems noted. Mother Diabetes Social History [facility]: [facility] Alcohol intake: current Alcohol intake frequency: a few times a week Patient Tobacco Use Status: Never used Tobacco e-Cigarette/Vaping Use: Never Used Second Hand Smoke Exposure: No Current occupational status: employed Cognitive needs: No Hearing needs: No Vision needs: No Questionnaire PHQ-9 Over the last 2 weeks, how often have you been bothered by any of the following problems? 1. Little interest or pleasure in doing things: not at all 2. Feeling down, depressed, or hopeless: not at all 3. Trouble falling or staying asleep, or sleeping too much: not at all 4. Feeling tired or having little energy: not at all 5. Poor appetite or overeating: not at all 6. Feeling bad about yourself - or that you are a failure or have let yourself or your family down: not at all 7. Trouble concentrating on things, such as reading the newspaper or watching television: not at all 8. Moving or speaking so slowly that other people could have noticed. Or the opposite - being so fidgety or restless that you have been moving around a lot more than usual: not at all 9. Thoughts that you would be better off or of hurting yourself in some way: not at all Total score: 0 Depression Screening Interpretation: Negative Depression Screening Done: Yes 43285 - PHQ-9 Billing: Yes Source: Developed by Drs. Danie Zamudio, Olesya Raya, Turner Joiner and colleagues, with an educational jeaneth from [employer]. Thrive Questionnaire Date Thrive assessed: 07/05/24 I am a: Patient What is your living situation today?: I have a steady place to live Within the past 12 months, did the food you bought not last and you didn't have the money to get more?: I choose not to answer this question Within the past 12 months, did you worry whether your food would run out before you got money to buy more?: Never true Do you have trouble paying for medicines?: No Do you have trouble getting transportation to medical appointments?: No Do you have trouble paying your heating and electricity bill?: No Do you have trouble taking care of your child, family member or friend?: No Do you have trouble with day-to-day activities such as bathing, preparing meals, shopping, managing finances, etc.?: No Are you currently unemployed and looking for a job?: No Are you interested in more education?: No Please select the resources that you would like help with: None Currently or been in a relationship where the following occur: I choose not to answer THRIVE Score: 0 AUDIT C Alcohol Use Questionnaire (AUDIT-C) 1. How often do you have a drink containing alcohol?: 2-4 times a month 2. How many drinks containing alcohol do you have on a typical day when you are drinking?: 1 or 2 3. How often do you have six or more drinks on one occasion?: Never Total Score: 2 Score Reviewed/Action Taken: Yes JENNYFER-7 AMB Questionnaire JENNYFER-7 Date JENNYFER - 7 assessed: 07/05/24 Feeling nervous, anxious, or on edge: 1 = Several days Not being able to stop or control worryin = Several days Worrying too much about different things: 1 = Several days Trouble relaxin = Several days Being so restless that it is hard to sit still: 1 = Several days Becoming easily annoyed or irritable: 1 = Several days Feeling afraid as if something awful might happen: 1 = Several days Total JENNYFER-7 score (0-4 normal; 5-9 mild; 10-14 moderate; 15-21 severe): 7 Source: Developed by Drs. Danie Zamudio, Olesya Raya, Turner Joiner and colleagues, with an educational jeaneth from [employer]. Review of Systems Const Denies chills, Denies fatigue, Denies fever(s), Denies headache(s), Denies malaise and Denies weakness Eyes Denies blurry vision, Denies change in vision, Denies irritation and Denies itchy eyes ENT Denies dysphagia, Denies dizziness, Denies otalgia, Denies headache(s), Denies nasal congestion, Denies neck pain, Denies odynophagia and Denies sore throat Card Denies chest pain, Denies rapid heart rate, Denies irregular heart rhythm, Denies palpitations and Denies dyspnea Resp Denies chest congestion, Denies cough, Denies dyspnea and Denies wheezing GI Denies abdominal pain, Denies bloating, Denies constipation, Denies dysphagia, Denies heartburn, Denies diarrhea, Denies nausea, Denies odynophagia and Denies vomiting Denies hematuria, Denies difficulty urinating, Denies dysuria, Denies urinary frequency and Denies urinary urgency Musc Denies back pain, Denies arthralgias, Denies joint swelling, Denies muscle weakness and Denies neck pain Skin/Breast Denies change in pigmentation, Denies lesions, Denies rash and Denies unusual bruising Neuro Denies dizziness, Denies headache(s), Denies paresthesias and Denies weakness Endo Denies fatigue and Denies palpitations Aller/Immun Denies itchy eyes and Denies wheezing Physical exam (Primary Care) Vital Signs: Last Vital Signs Pulse 83 07/05/24 10:03 BP 104/80 07/05/24 10:03 Pulse Ox 98 07/05/24 10:03 Oxygen Delivery Method Room Air 07/05/24 10:03 BMI result Body Mass Index 29.8 Tobacco/Smoking Status: Tobacco use Status Tobacco use date assessed 07/05/24 07/05/24 10:09 Patient Tobacco Use Status Never used Tobacco 07/05/24 10:09 e-Cigarette/Vaping Use Never Used 07/05/24 10:09 PHQ-9: PHQ-9 Score PHQ-9: Total score 0 07/05/24 10:56 Depression Screening Interpretation: Negative Thrive Assessment: Date of Thrive Assessment Date Thrive assessed 07/05/24 07/05/24 10:09 Currently or been in a relationship where the following occur: I choose not to answer Const General: no acute distress, alert and awake Orientation/consciousness: patient oriented x3 HENMT Head: Yes normocephalic and Yes atraumatic Ears: external ears normal, TM's normal bilaterally and EAC's normal General nose exam: No nasal discharge present Face and sinus: Yes normal facial exam and Yes sinuses nontender Teeth and gingiva: dentition normal Throat: Yes posterior oropharynx normal and Yes tonsils normal (no TP congestion) Eyes Eyelids: Yes eyelids normal Conjunctivae: conjunctivae normal Pupils: Equal, round and reactive pupils present EOM: EOMs intact bilaterally Neck Neck: Yes no lymphadenopathy and Yes supple Thyroid: Thyroid normal Resp Auscultation: clear to auscultation bilaterally, no rales and no wheezes Cardio Rate: regular rate Rhythm: regular rhythm Heart sounds: no murmurs GI Palpation (GI): Soft to palpation, nontender and No hepatosplenomegaly present Auscultation: normal bowel sounds General: Yes no CVA tenderness Back/Spine/Pelvis Back: no CVA tenderness Thoracic/Lumbar Spine: thoracic and lumbar spine normal to inspection Skin Lesions: no lesions Rashes: no rashes Neuro General: patient oriented x3, moves all extremities, no focal motor deficits and CN's II-XI intact bilaterally Cranial nerves: Yes Equal, round and reactive pupils present Cognition (Neuro): normal cognition Gait exam (Neuro): Normal gait present Extrem General: Yes no clubbing, cyanosis or edema Office Procedures Flu Questionnaire Does the patient have a severe egg allergy?: No Immunizations Fluarix Triv [id number] (PF) 45 mcg (15 mcg x 3)/0.5 mL IM syringe Performing Provider: Matthew Baca MD [facility] [place] [facility] Documented (not given) by: RIK Hu on 07/05/24 10:10 Reason Not Given: Patient Refused Results Reviewed Results Reviewed: Laboratory Tests 06/28/24 06/28/24 06:07 06:21 WBC 3.2 L Hgb 15.6 Hct 47.7 Plt Count 210 Sodium 143 Potassium 4.2 Creatinine 0.89 Estimated GFR > 60 Fasting Glucose 100 H Calcium 9.7 AST 37 ALT 49 H Triglycerides 128 Cholesterol 191 LDL Cholesterol, Calc 116 H HDL Cholesterol 50 Prostate Specific Ag 0.59 25-OH Vitamin D Total 64.5 TSH 2.53 Ur Specific Kaplan 1.020 Urine Protein Trace Urine Glucose (UA) Negative Urine Blood Negative Urine Nitrite Negative Ur Leukocyte Esterase Negative Coding Level of Care Code Est Pt Prev Care 40-64y(90493) Diagnoses Annual physical exam Z00.00 Pure hypercholesterolemia E78.00 Osteoarthritis of left knee, unspecified osteoarthritis type M17.12 Osteoarthritis type: unspecified Vitamin D deficiency E55.9 Erectile dysfunction, unspecified erectile dysfunction type N52.9 Erectile dysfunction type: unspecified Insomnia, unspecified type G47.00 Insomnia type: unspecified Episode of recurrent major depressive disorder, unspecified depression episode severity F33.9 Active/Remission status: currently active Major depression episode severity: unspecified Obesity (BMI 30-39.9) E66.9 Additional Codes PHQ-9 - 95427 - PHQ-9 Billing: Yes ([id number]) Assessment & Plan Assessment & Plan (1) Annual physical exam: Code(s): Z00.00 - Encounter for general adult medical examination without abnormal findings Category: Medical Plan: Results of his labs done last week reviewed and discussed with patient He is up-to-date with his colon cancer screening (2) Pure hypercholesterolemia: Code(s): E78.00 - Pure hypercholesterolemia, unspecified Category: Medical Plan: Reinforced low cholesterol diet He is cautioned that his cholesterol numbers on his recent labs have gone up from previous Continue Atorvastatin 20 mg QD for now Will recheck his labs and fasting lipids in 6 months for follow up (3) Degenerative joint disease of left knee: Code(s): M17.12 - Unilateral primary osteoarthritis, left knee Category: Medical Qualifiers: Osteoarthritis type: unspecified Qualified Code(s): M17.12 - Unilateral primary osteoarthritis, left knee Plan: S/P lateral meniscal repair and physical therapy last year - did experience some improvement of symptoms initially after surgery but physical therapy helped as well MRI of the left knee done at [facility] last year revealed (+) lateral and medial meniscal tear as well as degenerative changes in the knee Continue OTC Ibuprofen PRN Follow up with [facility] as scheduled (4) Vitamin D deficiency: Code(s): E55.9 - Vitamin D deficiency, unspecified Category: Medical Plan: Continue Vitamin D3 2000 units QD (5) Erectile dysfunction: Code(s): N52.9 - Male erectile dysfunction, unspecified Category: Medical Qualifiers: Erectile dysfunction type: unspecified Qualified Code(s): N52.9 - Male erectile dysfunction, unspecified Plan: Serum testosterone level checked last year came out normal Follow-up with urology as scheduled (6) Insomnia: Code(s): G47.00 - Insomnia, unspecified Category: Medical Qualifiers: Insomnia type: unspecified Qualified Code(s): G47.00 - Insomnia, unspecified Plan: Sleep hygiene reinforced Continue Trazodone 50 mg 1/2 tablet QD PRN (7) Major depression, recurrent: Code(s): F33.9 - Major depressive disorder, recurrent, unspecified Category: Medical Qualifiers: Active/Remission status: currently active Major depression episode severity: unspecified Qualified Code(s): F33.9 - Major depressive disorder, recurrent, unspecified Plan: Continue Sertraline 50 mg QD Follow up with psychiatry as scheduled (8) Obesity (BMI 30-39.9): Code(s): E66.9 - Obesity, unspecified Category: Medical Plan: Reinforced diet/exercise as tolerated/lose weight? Plan Follow up in 6 months Orders: Orders Influenza [id number] Immunization 07/05/24 Z23 - Encounter for immunization
== END 2024-07-05 10:50 | disposition home or self-care (01) ==
PROVIDERS: PCP Internal Medicine; Visit Provider Internal Medicine
DX: Z00.00 Encounter for general adult medical examination without abnormal findings (principal); E78.00 Pure hypercholesterolemia, unspecified; F33.9 Major depressive disorder, recurrent, unspecified; M17.12 Unilateral primary osteoarthritis, left knee; E55.9 Vitamin D deficiency, unspecified; N52.9 Male erectile dysfunction, unspecified; G47.00 Insomnia, unspecified; E66.9 Obesity, unspecified

== ENCOUNTER → 2024-07-05 09:54 | Outpatient (BNVA) | payer OTHER, SELFPAY | PROVIDERS: PCP Internal Medicine; Visit Provider Internal Medicine | DX: Z00.00 Encounter for general adult medical examination without abnormal findings (principal); E78.00 Pure hypercholesterolemia, unspecified; M17.12 Unilateral primary osteoarthritis, left knee; E55.9 Vitamin D deficiency, unspecified; N52.9 Male erectile dysfunction, unspecified; G47.00 Insomnia, unspecified; F33.9 Major depressive disorder, recurrent, unspecified; E66.9 Obesity, unspecified; Z68.29 Body mass index [BMI] 29.0-29.9, adult; Z71.3 Dietary counseling and surveillance | CPT/HCPCS: 90471; 96127 ==

== ENCOUNTER 2025-01-02 09:31 | Outpatient (AMB) | payer OTHER, SELFPAY ==
[2025-01-02 09:35] VITALS: BP 102/80; PULSE 71; O2SAT 98; BMI 30.7
--- NOTE | 2025-01-02 09:35 | A.OFFPC_ITS ---
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 Required: No Accompanied by: Self / Same As Patient Allergies No Known Allergies Allergy (Verified 01/02/25 10:15) Medication List - Last Reconciled 01/02/25 by Matthew Baca MD atorvastatin 20 mg PO BEDTIME ibuprofen 800 mg PO TID PRN sertraline 50 mg PO DAILY trazodone 25 mg PO BEDTIME PRN Tobacco use date assessed: 01/02/25 Dental Screening Dental Screen Date: 01/02/25 HPI hyperlipidemia HPI Details Patient comes in today for her follow up visit States that his left shoulder feels tight often lately Recalls that his left arm has been shaking/trembling slightly over the past 2 days, especially when he was holding something for a while Notes that the shaking in his left arm/hand will get better after he works on stretching out his arm and shoulder for a while and he thinks that all of these may be from an old injury that he had as 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 although he cannot recall any particular incident wherein he suffered a significant injury to his left shoulder Patient states that he feels okay otherwise He denies any headaches or dizziness Denies any chest pains, no SOB No nausea/vomiting, no abdominal pain No change in bowel habits noted He did not have any follow up labs done recently [facility] Medical History Vitamin D deficiency Insomnia Generalized headaches Overweight (BMI 25.0-29.9) Erectile dysfunction Obesity (BMI 30-39.9) Primary osteoarthritis of left knee Pure hypercholesterolemia Dermatitis Orthostatic hypotension Dizziness Surgical History Hx of colonoscopy H/O left knee surgery History of right inguinal hernia repair History of splenectomy Family History Father No problems noted. Mother Diabetes Social History Housing: Condominium Alcohol intake: current Alcohol intake frequency: a few times a week Patient Tobacco Use Status: Never used Tobacco e-Cigarette/Vaping Use: Never Used Second Hand Smoke Exposure: No Current occupational status: employed Cognitive needs: No Hearing needs: No Vision needs: No Questionnaire PHQ-9 Over the last 2 weeks, how often have you been bothered by any of the following problems? 1. Little interest or pleasure in doing things: not at all 2. Feeling down, depressed, or hopeless: not at all 3. Trouble falling or staying asleep, or sleeping too much: not at all 4. Feeling tired or having little energy: not at all 5. Poor appetite or overeating: not at all 6. Feeling bad about yourself - or that you are a failure or have let yourself or your family down: not at all 7. Trouble concentrating on things, such as reading the newspaper or watching television: not at all 8. Moving or speaking so slowly that other people could have noticed. Or the opposite - being so fidgety or restless that you have been moving around a lot more than usual: not at all 9. Thoughts that you would be better off or of hurting yourself in some way: not at all Total score: 0 Depression Screening Interpretation: Negative Depression Screening Done: Yes 71793 - PHQ-9 Billing: Yes Source: Developed by Drs. Danie Zamudio, Olesya Raya, Turner Joiner and colleagues, with an educational jeaneth from [employer]. Thrive Questionnaire Date Thrive assessed: 01/02/25 I am a: Patient What is your living situation today?: I have a steady place to live Within the past 12 months, did the food you bought not last and you didn't have the money to get more?: I choose not to answer this question Within the past 12 months, did you worry whether your food would run out before you got money to buy more?: Often true Do you have trouble paying for medicines?: No Do you have trouble getting transportation to medical appointments?: No Do you have trouble paying your heating and electricity bill?: No Do you have trouble taking care of your child, family member or friend?: No Do you have trouble with day-to-day activities such as bathing, preparing meals, shopping, managing finances, etc.?: I choose not to answer this question Are you currently unemployed and looking for a job?: I choose not to answer this question Are you interested in more education?: I choose not to answer this question Please select the resources that you would like help with: None Currently or been in a relationship where the following occur: No concerns reported THRIVE Score: 1 AUDIT C Alcohol Use Questionnaire (AUDIT-C) 1. How often do you have a drink containing alcohol?: 2-4 times a month 2. How many drinks containing alcohol do you have on a typical day when you are drinking?: 1 or 2 3. How often do you have six or more drinks on one occasion?: Never Total Score: 2 Score Reviewed/Action Taken: Yes JENNYFER-7 AMB Questionnaire JENNYFER-7 Date JENNYFER - 7 assessed: 01/02/25 Feeling nervous, anxious, or on edge: 1 = Several days Not being able to stop or control worryin = Several days Worrying too much about different things: 1 = Several days Trouble relaxin = Several days Being so restless that it is hard to sit still: 1 = Several days Becoming easily annoyed or irritable: 1 = Several days Feeling afraid as if something awful might happen: 1 = Several days Total JENNYFER-7 score (0-4 normal; 5-9 mild; 10-14 moderate; 15-21 severe): 7 Source: Developed by Drs. Danie Zamudio, Olesya Raya, Turner Joiner and colleagues, with an educational jeaneth from [employer]. Review of Systems Const Denies chills, Denies fatigue, Denies fever(s) and Denies headache(s) ENT Denies dysphagia, Denies dizziness, Denies otalgia, Denies headache(s), Denies neck pain, Denies odynophagia and Denies sore throat Card Denies chest pain, Denies irregular heart rhythm, Denies palpitations and Denies dyspnea Resp Denies chest congestion, Denies cough and Denies dyspnea GI Denies abdominal pain, Denies constipation, Denies dysphagia, Denies heartburn, Denies diarrhea, Denies nausea, Denies odynophagia and Denies vomiting Denies hematuria, Denies difficulty urinating, Denies dysuria and Denies urinary frequency Musc Details: (+) slight weakness of the left arm/hand, which shakes/trembles at times, especially when he is holding something with his left hand Denies back pain, Denies arthralgias (but left shoulder feels tight often lately) and Denies neck pain Skin/Breast Denies rash Neuro Denies dizziness, Denies headache(s) and Denies paresthesias Endo Denies fatigue and Denies palpitations Physical exam (Primary Care) Vital Signs: Last Vital Signs Pulse 71 01/02/25 09:35 BP 102/80 01/02/25 09:35 Pulse Ox 98 01/02/25 09:35 Oxygen Delivery Method Room Air 01/02/25 09:35 BMI result Body Mass Index 30.7 Tobacco/Smoking Status: Tobacco use Status Tobacco use date assessed 01/02/25 01/02/25 09:41 Patient Tobacco Use Status Never used Tobacco 01/02/25 09:41 e-Cigarette/Vaping Use Never Used 01/02/25 09:41 PHQ-9: PHQ-9 Score PHQ-9: Total score 0 01/02/25 10:22 Depression Screening Interpretation: Negative Thrive Assessment: Date of Thrive Assessment Date Thrive assessed 01/02/25 01/02/25 09:41 Currently or been in a relationship where the following occur: No concerns reported Const General: no acute distress and alert Orientation/consciousness: patient oriented x3 HENMT Ears: TM's normal bilaterally and EAC's normal Throat: Yes posterior oropharynx normal and Yes tonsils normal (no TP congestion) Neck Neck: Yes supple and No lymphadenopathy Thyroid: Thyroid normal Resp Auscultation: clear to auscultation bilaterally, no rales and no wheezes Cardio Rate: regular rate Rhythm: regular rhythm Heart sounds: no murmurs GI Palpation (GI): Soft to palpation and nontender Auscultation: normal bowel sounds General: Yes no CVA tenderness Back/Spine/Pelvis Back: no CVA tenderness Thoracic/Lumbar Spine: No lumbar spinal tenderness Skin Rashes: no rashes Neuro General: patient oriented x3 Extrem General: Yes no clubbing, cyanosis or edema Left upper extremity: shoulder/upper arm Details: normal ROM; no tenderness (but shoulder feels tight at times lately) Coding Level of Care Code Est Pt Level 4 (15073) Diagnoses Pure hypercholesterolemia E78.00 Osteoarthritis of left knee, unspecified osteoarthritis type M17.12 Osteoarthritis type: unspecified Strain of left shoulder, sequela S46.912S Encounter type: sequela Vitamin D deficiency E55.9 Erectile dysfunction, unspecified erectile dysfunction type N52.9 Erectile dysfunction type: unspecified Insomnia, unspecified type G47.00 Insomnia type: unspecified Episode of recurrent major depressive disorder, unspecified depression episode severity F33.9 Active/Remission status: currently active Major depression episode severity: unspecified Obesity (BMI 30-39.9) E66.9 Additional Codes PHQ-9 - 22287 - PHQ-9 Billing: Yes ([id number]) Assessment & Plan Assessment & Plan (1) Pure hypercholesterolemia: Code(s): E78.00 - Pure hypercholesterolemia, unspecified Category: Medical Plan: Reinforced low cholesterol diet Patient is cautioned again that his cholesterol numbers on his most recent labs in June 2024 have gone up from his previous numbers and he should get them rechecked EFRAIN Continue Atorvastatin 20 mg QD Will recheck his labs and fasting lipids again in 6 months for follow up (2) Degenerative joint disease of left knee: Code(s): M17.12 - Unilateral primary osteoarthritis, left knee Category: Medical Qualifiers: Osteoarthritis type: unspecified Qualified Code(s): M17.12 - Unilateral primary osteoarthritis, left knee Plan: MRI of the left knee done at [facility] a couple of years ago revealed (+) lateral and medial meniscal tear as well as degenerative changes in the knee S/P lateral meniscal repair and physical therapy a couple of years ago - patient reports experiencing some improvement of symptoms initially after surgery but physical therapy helped as well Continue OTC Ibuprofen PRN Follow up with [facility] as scheduled (3) Left shoulder strain: Code(s): S46.912A - Strain of unspecified muscle, fascia and tendon at shoulder and upper arm level, left arm, initial encounter Category: Medical Qualifiers: Encounter type: sequela Qualified Code(s): S46.912S - Strain of unspecified muscle, fascia and tendon at shoulder and upper arm level, left arm, sequela Plan: Will send patient for x-rays of the left shoulder for further evaluation (4) Vitamin D deficiency: Code(s): E55.9 - Vitamin D deficiency, unspecified Category: Medical Plan: Continue Vitamin D3 2000 units QD (5) Erectile dysfunction: Code(s): N52.9 - Male erectile dysfunction, unspecified Category: Medical Qualifiers: Erectile dysfunction type: unspecified Qualified Code(s): N52.9 - Male erectile dysfunction, unspecified Plan: Serum testosterone level checked last year came out normal Follow-up with urology as scheduled (6) Insomnia: Code(s): G47.00 - Insomnia, unspecified Category: Medical Qualifiers: Insomnia type: unspecified Qualified Code(s): G47.00 - Insomnia, unspecified Plan: Sleep hygiene reinforced Continue Trazodone 50 mg 1/2 tablet QD PRN (7) Major depression, recurrent: Code(s): F33.9 - Major depressive disorder, recurrent, unspecified Category: Medical Qualifiers: Active/Remission status: currently active Major depression episode severity: unspecified Qualified Code(s): F33.9 - Major depressive disorder, recurrent, unspecified Plan: Continue Sertraline 50 mg QD Follow up with psychiatry as scheduled (8) Obesity (BMI 30-39.9): Code(s): E66.9 - Obesity, unspecified Category: Medical Plan: Reinforced diet/exercise as tolerated/lose weight? Plan To return in 6 months for his next annual physical examination Orders: Orders XR shoulder LT min 2V 01/02/25 M25.512 - Pain in left shoulder [facility]. Panel Fast 01/02/25 E78.00 - Pure hypercholesterolemia, unspecified Lipid Panel 01/02/25 E78.00 - Pure hypercholesterolemia, unspecified TSH reflex Free T4 01/02/25 E78.00 - Pure hypercholesterolemia, unspecified UA CC w/rflx Micro + Cult 01/02/25 R30.0 - Dysuria Complete Blood Count Auto Diff 6 Months D64.9 - Anemia, unspecified, Z00.00 - Encounter for general adult medical examination without abnormal findings UA CC w/rflx Micro + Cult 6 Months R30.0 - Dysuria, Z00.00 - Encounter for general adult medical examination without abnormal findings Prostate Specific Antigen 6 Months N40.0 - Benign prostatic hyperplasia without lower urinary tract symptoms, Z00.00 - Encounter for general adult medical examination without abnormal findings Vitamin D 25-OH Total 6 Months E55.9 - Vitamin D deficiency, unspecified, Z00.00 - Encounter for general adult medical examination without abnormal findings Complete Blood Count Auto Diff 01/02/25 D64.9 - Anemia, unspecified Vitamin D 25-OH Total 01/02/25 E55.9 - Vitamin D deficiency, unspecified [facility]. Panel Fast 6 Months E78.00 - Pure hypercholesterolemia, unspecified, Z00.00 - Encounter for general adult medical examination without abnormal findings Lipid Panel 6 Months E78.00 - Pure hypercholesterolemia, unspecified, Z00.00 - Encounter for general adult medical examination without abnormal findings TSH reflex Free T4 6 Months E78.00 - Pure hypercholesterolemia, unspecified, Z00.00 - Encounter for general adult medical examination without abnormal findings
--- OUTSIDE RECORDS SUMMARY | 2025-01-02 10:11 | XMS_ITS | Encounter Summary ---
Author Name [facility] [place] [facility] Address [address] [place] [address] Care Team Providers Care Casing Runner Name Role Phone VIKI KAMARA Primary Care Provider Unavailabl e Insurance Providers: All historical and current Section Date Range: From patient's date of to the date document was created. This section includes the names of all active insurance providers for the patient. Insurance Provider Type of Coverage Plan Name Start of Policy Coverage End of Policy Coverage Group Number Member ID Insurance Provider's Telephone Number Policy Law's Name Patient's Relationship to Policy Law MEDICAID MEDICAID [facility] JORGE ANA FRANCISCO Aug 22, 2015 MEDICAI D [id number] CARLOS ENRIQUE FLORES PATIENT [employer] RX PRESCRIPT ION RX Aug 22, 2022 THPRX [id number] CARLOS ENRIQUE FLORES PATIENT [facility] RX PRESCRIPT ION RX Aug 22, 2022 THPRX [id number] [phone] CARLOS ENRIQUE FLORES PATIENT [facility] RX PRESCRIPT ION RX Aug 22, 2022 THPRX [id number] CARLOS ENRIQUE FLORES PATIENT [facility] RX PRESCRIPT ION RX Aug 22, 2022 THPRX [id number] [phone] CARLOS ENRIQUE FLORES PATIENT [facility] 2017 DIREC T CARE NON-B ILL Jun 28, 2021 [id number] [phone] CARLOS ENRIQUE FLORES PATIENT [facility] 2018 DIRE T CARE ADSM Nov 27, 2020 [id number] CARLOS ENRIQUE FLORES PATIENT [facility] 2022 [id number] [phone] CARLOS ENRIQUE FLORES PATIENT [facility] PLAN RAMAN RYDERN E 2022 [id number] CARLOS ENRIQUE FLORES PATIENT [facility] 2022 [id number] CARLOS ENRIQUE FLORES PATIENT Selected Encounter This section includes the information on record at [place] for the Encounter. Date/Time Encounter Type Encounter Description Reason Provider Source Jul 26, 2024 09:30 AM OFFICE O/P EST MOD 30 MIN [facility] - IND ICD-10-CM F43.10 Post-traumatic stress disorder, unspecified KORIN CASTELLANOS Deny Encounter Template Text not used by PA Assessments - Encounter Diagnoses This section includes the primary and secondary diagnoses documented for the Encounter. Date/Time Primary/Secondary Diagnosis Diagnosis Name Provider Source Jul 26, 2024 10:01 AM PRIMARY Post-traumatic stress disorder, unspecified SABRINA CASTELLANOS Plan of Treatment: Future Appointments (+ 6 months) and Future Tests (+/- 45 days) The Plan of Treatment section includes future care activities for the patient from all PA treatmentfacilities. This section includes future appointments and future orders which are active, pending or scheduled. Future Appointments This section includes appointments that were scheduled to occur 6 months from the date of the Encounter, up to a maximum of 20 appointments. The data comes from all [place] treatment facilities. Appointment Date/Time Appointment Type Appointme nt Facility Name Jul 30, 2024 01:00 PM AMBULATORY - PSYCHIATRY [facility] Sep 17, 2024 09:30 AM AMBULATORY - MEDICINE [facility] Sep 17, 2024 01:00 PM AMBULATORY - PSYCHIATRY [facility] Sep 24, 2024 01:00 PM AMBULATORY - PSYCHIATRY [facility] Sep 27, 2024 10:00 AM AMBULATORY - PSYCHIATRY [facility] Oct 15, 2024 01:00 PM AMBULATORY - PSYCHIATRY [facility] Oct 22, 2024 01:00 PM AMBULATORY - PSYCHIATRY [facility] Oct 29, 2024 10:00 AM AMBULATORY - MEDICINE [place] [facility] [place] [facility] Nov 05, 2024 09:30 AM AMBULATORY - PSYCHIATRY [facility] Nov 19, 2024 01:00 PM AMBULATORY - PSYCHIATRY [facility] [place] [facility] Nov 29, 2024 10:00 AM AMBULATORY - PS[facility]CHIATRY [facility] [place] [facility] Dec 17, 2024 01:00 PM AMBULATORY - PS[facility]CHIATRY [facility] [place] [facility] Dec 19, 2024 08:45 AM AM[facility]ULATORY - MEDICINE [facility] December 31, 2024 01:00 PM AMBULATORY - PSYCHIATRY [facility] [place] [facility] Jan 23, 2025 10:00 AM AMBULATORY - PSYCHIATRY [place] [facility] [place] [facility] Social History: Smoking Status (Most current) and Tobacco Use (All prior to encounter date) This section includes the most current, and the historical, smoking and tobacco- related health factors from the PA facility where the Encounter took place. Current Smoking Status This section includes the most current smoking, or tobacco-related health factor, from the [place] facility where the Encounter took place. Date/Time Current Smoking Status Comment Taz mae Nov 24, 2023 10:00 AM [facility]CO [facility] Tobacco Use History This section includes a history of the smoking, or tobacco-related health factors, that were collected on or before the date of the Encounter. The data comes from the [place] facility where the Encounter took place. Date/Time Smoking Status/Tobacco Use Comment F acility Oct 15, 2022 09:30 AM [facility] Nov 02, 2021 09:00 AM [facility]CO [facility] Oct 27, 2020 02:00 PM [facility]ACCO [facility] US[facility] Oct 17, 2020 02:31 PM [facility]ACCO [facility] USED [facility] Jul 27, 2017 10:08 AM LIFETIME NON-TOBACCO USER [facility] Sep 17, 2015 12:17 PM LIFETIME NON-[facility]BACCO USER [facility] Encounter Notes: All associated encounter notes This section contains the clinical notes associated to the Encounter. Date/Time Encounter Note(s) Provider Source Jul 26, 2024 09:52 AM TELEHEALTH NOTE: LOCAL TITLE: [facility] VIDEO CONNECT PSYCHIATRIST NOTE STANDARD TITLE: TELEHEALTH NOTE DATE OF NOTE: JUL 26, 2024@09:52 ENTRY DATE: JUL 26, 2024@09:52:59 AUTHOR: SABRINA CASTELLANOS EXP COSIGNER: URGENCY: STATUS: COMPLETED VA Video Connect (VVC) Standard Documentation VVC Clinician Resources Only: E911 (Emergency Call Relay Center): [phone] National Veterans Crisis Line - 988 then press #1. CW Suicide Coordinator [phone], Ext. [phone]; Back-up Ext. [phone] [place] Police, [place], [place] [phone] Introduction: Visit is being conducted by PA [employer]. [place] identified with 2 identifiers: [X] Full Name [X] Date of [ ] VA ID Card Emergency Plan: [place] confirmed and/or provided the following information in case of emergency or technology failure. PATIENT PHONE - PHONE NUMBER [CELLULAR] - Is patient phone number correct, if not, enter below: 's phone number: LASHAE FLORES [address] [place] [address] [address] [place], [place], [address] [place]'s present location and address for appointment: home [place]'s emergency contact name and phone number: chart [place] reported that location is private and safe: Yes Informed Consent: informed of the risks and benefits of Telehealth video care. [place] has the right to refuse video services. If refuses video visit, a [id number] visit will be scheduled. [place] verbalized consent for this video visit: Yes [place] provided consent for any other persons present for visit: N/A If yes, who and relationship to patient: Secure visit: Visit was locked for security and privacy:Yes 30 min for encounter, including chart review, interview, charting chart reviewed see my 01/13/21 note for history Patient remains stable, again despite stressors. As with last appt, patient reports improved depression overall - but some depressive sx's when under stress. PTSD symptoms/irritability also improved, but can worsen under stress. Affect can brighten appropriately. Patient denies suicidal and violent ideation. Denies history of psychotic symptoms. Well organized thoughts. No paranoid or delusional content presented. Cognitive exam grossly intact. Speech normal. Has interests. Again, we reviewed the psychiatric medication, and he reports good response (despite some ongoing sx's), he wants to keep meds the same, see below Patient denies medication side effects. Denies dizziness. No daytime sedation. He reports compliance The patient previously denied history of alcohol abuse, occasional social use; denies street drugs Lives alone, main support sister; retired -- takes care of house; he previously reported that gets exercise regularly -- stationary bike As noted in previous notes, the patient reports the following PTSD sx's -- has difficulty around people/avoids peoople, hypervigilance, irritability, intrusive memories, nightmares, insomnia, increased startle response, mood changes, poor concentration. He reports that PTSD symptoms significantly impair social functioning and occupational functioning (he reported difficulty looking for work because of PTSD symptoms). Active problems - Computerized Problem List is the source for the followin. Leukopenia 2. Posttraumatic stress disorder 3. Pain of left ankle joint 4. Ambulatory ECG normal 5. Chronic Post-Traumatic Stress Disorder ([facility] [id number]) 6. Depression ([facility] [id number]) 7. Sleep apnea 8. Exposure to potentially hazardous chemical 9. lymphectomy 10. History of appendectomy 11. Lateral epicondylitis 12. Recurrent brief depressive disorder 13. Screening for malignant neoplasm of colon done 14. medical providers outside [facility] 15. Impotence of organic origin 16. Pain of left knee region 17. Rt Rib Pain 18. Hypercholesterolemia (SNOMED CT [id number]) Active Outpatient Medications (including Supplies): Active Outpatient Medications Status 1) ATORVASTATIN CALCIUM 40MG TAB TAKE ONE-HALF TABLET BY MOUTH ACTIVE ONCE DAILY FOR CHOLESTEROL 2) CARBOXYMETHYLCELLULOSE NA 0.5% OPH SOLN INSTILL 1 DROP INTO ACTIVE EACH EYE FOUR TIMES DAILY NEEDED Indication: FOR DRY EYE 3) DULOXETINE HCL 60MG EC CAP TAKE TWO CAPSULES BY MOUTH ONCE ACTIVE DAILY Indication: MOOD/PTSD 4) LORATADINE 10MG TAB TAKE ONE TABLET BY MOUTH ONCE DAILY ACTIVE Indication: FOR ALLERGY 5) TRAZODONE HCL 50MG TAB TAKE ONE AND ONE-HALF TABLETS BY ACTIVE MOUTH AT BEDTIME NEEDED INSOMNIA Indication: FOR INSOMNIA ASSOCIATED WITH DEPRESSION PSYCHIATRIC MEDICATION HISTORY: Prazosin, hydroxyzine, propranolol for PTSD without benefit, no side effects Zoloft --now tolerating Zoloft without dizziness, but only partial benefit And now tolerating trazodone well IMPRESSION: DSM-5 PTSD, chronic -- 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 See C-SSRS 12/01/23 - same today The pt is probably low risk for suicide or violence -- the patient denied suicidal and violent ideation, but the Veterans Crisis Line information and number were reviewed with patient, as a precaution. The patient also understands to call 911 or to go to ER in the event of an emergency. continue psychotherapy for PTSD and depression -- Dr. Crawford continue PTSD Support group w [facility] anger mangagement grp -- pt finished this -- found helpful, uses the strategies CONTINUE CYMBALTA 120 MG DAILY - good benefit for depression, PTSD, anxiety, and last increase helpful. Patient tolerating Cymbalta well. CONTINUE TRAZODONE 75 MG NIGHTLY NEEDED INSOMNIA -- helps insomnia, patient understands can take less Note that the patient had previously taking propranolol and prazosin for anxiety and nightmares respectively from outside the [facility]. He is no longer taking these medications. He will stay off the medications for now as these may have contributed to the dizziness he experienced previously. The discussion with patient about treatments including medications involved shared decision making. The patient was educated about the rationale and plan for the psychiatric medications. Medication instructions were reviewed with the patient. Alternatives to treatment were discussed with the patient. The side effect profile of the psychiatric medications was reviewed with the patient. This also included discussion of potential drug interactions associated with psychiatric medication. The patient discussed/verbalized back the understanding of the medication, side effects, and the plan/instructions, and the patient asked good questions. The patient demonstrated reasonable understanding of the medication side effects and the above-mentioned issues. The benefits of psychiatric medications outweigh risks for this patient. The patient consents to medication treatment. I asked the patient to call me or to come to open access if the patient does not like the effect of psychiatric medication or if has side effects with psychiatric medication. The risk of priapism with trazodone was previously reviewed with the patient. Risk of next-day sedation with trazodone was also previously reviewed with patient. He has not noted any side effects. Return to clinic 2-3 mo or sooner by calling for open access I previously educated the patient about the importance of using cpap for sleep apnea. Pt stated always uses cpap when sleeping Medication Reconciliation: Outpatient: Has the patient been taking medications as documented in the EMLR? YES: The patient has been taking medications as documented in the EMLR. Essential Medication List for Review used to complete this medication reconciliation. INCLUDED IN THIS LIST: Alphabetical list of active outpatient prescriptions dispensed from this PA (local) and dispensed from another PA or [facility] facility (remote) as well as inpatient orders (local, pending and active), local clinic medications, locally documented non-VA medications, and local prescriptions that have or been discontinued in the past 90 days. - All changes in medications, including all non-VA/Herbal/OTC medications were entered into CPRS. - If there were any medications the patient should no longer take, they were discontinued. - The patient/caregiver was instructed to update this list, discard old lists, and take this list to the next appointment, whether with a VA or non-VA provider. /agatha/ SABRINA CASTELLANOS MD STAFF PSYCHIATRIST Signed: 07/26/2024 10:01 Receipt Acknowledged By: 07/26/2024 10:39 /agatha/ HELEN HORTA [employer] EDITOR SABRINA CASTELLANOSFIELD
--- OUTSIDE RECORDS SUMMARY | 2025-01-02 10:11 | XMS_ITS | Encounter Summary ---
Author Name [facility] [place] Organization [facility] [place] [facility] [place] [facility] [place] Address [address] [place] [address] Care Team Providers Care Marketing Services Rep Name Role Phone VIKI KAMARA Primary Care [...] Patient's Relationship to Policy Law MEDICAID [facility] FRANC[facility] Aug 22, 2015 MEDICAI D [id number] CARLOS ENRIQUE FLORES PATIENT [facility] RX PRESCRIPT ION RX Aug 22, 2022 THPRX [id number] CARLOS ENRIQUE FLORES PATIENT [facility] RX PRESCRIPT ION RX Aug 22, 2022 THPRX [id number] CARLOS ENRIQUE FLORES PATIENT [facility] RX PRESCRIPT ION RX Aug 22, 2022 THPRX [id number] [phone] CARLOS ENRIQUE FLORES PATIENT OPTUM RX PRESCRIPT ION RX Aug 22, 2022 THPRX [id number] CARLOS ENRIQUE FLORES PATIENT [facility] 2017 DIREC T CARE NON-B ILL Jun 28, 2021 [id number] [phone] CARLOS ENRIQUE FLORES PATIENT [facility] 2018 DIREC T CARE ADS Nov 27, 2020 [id number] SANDRACARLOS ENRIQUE FRANCISCO PATIENT [facility] P - MARIA VICTORIA THAO OctFeb 16, 2022 [id number] SANDRACARLOS ENRIQUE FRANCISCO PATIENT [facility] PLAN ALBERT CABA E 2022 [id number] [phone] SANDRACARLOS ENRIQUE FRANCISCO PATIENT [facility] (WNR) ALBERT GORDONP -BRVAISHNAVI CABA 2022 [id number] [phone] SANDRACARLOS ENRIQUE FRANCISCO PATIENT Selected Encounter This section includes the information on record at [place] for the Encounter. Date/Time Encounter Type Encounter Description Reason Pro vider Source Jul 09, 2024 11:00 AM Outpatient Encounter [facility] Encounter Template Text not used by DC Plan of Treatment: Future Appointments (+ 6 months) and Future Tests (+/- 45 days) The Plan of Treatment section includes future care activities for the patient from all [place] treatmentfacilities. This section includes future appointments and future orders which are active, pending or scheduled. Future Appointments This section includes appointments that were scheduled to occur 6 months from the date of the Encounter, up to a maximum of 20 appointments. The data comes from all [place] treatment facilities. Appointment Date/Time Appointment Type Appointme nt Facility Name Jul 16, 2024 01:00 PM AMBULATORY - PSYCHIATRY [facility] Jul 26, 2024 09:30 AM AMBULATORY - PSYCHIATRY [facility] Jul 26, 2024 10:00 AM [facility] Jul 30, 2024 01:00 PM AMBULATORY - PSYCHIATRY [facility] Sep 17, 2024 09:30 AM AMBULATORY - MEDICINE [facility] Sep 17, 2024 01:00 PM AMBULATORY - PSYCHIATRY [facility] Sep 24, 2024 01:00 PM AMBULATORY - PSYCHIATRY [facility] Sep 27, 2024 10:00 AM AMBULATORY - PSYCHIATRY [place] [facility] [place] [place] [facility] Oct 15, 2024 01:00 PM AMBULATORY - PSYCHIATRY [facility] Oct 22, 2024 01:00 PM AMBULATORY - PSYCHIATRY [facility] Oct 29, 2024 10:00 AM AMBULATORY - MEDICINE [facility] [place] [facility] Nov 05, 2024 09:30 AM AMBULATORY - PSYCHIATRY [facility] Nov 19, 2024 01:00 PM AMBULATORY - PSYCHIATRY [facility] [place] [facility] Nov 29, 2024 10:00 AM AMBULATORY - PSYCHIATRY [facility] [place] [facility] Dec 17, 2024 01:00 PM AMBULATORY - PSYCHIATRY [facility] [place] [facility] Dec 19, 2024 08:45 AM [facility]ULATORY - MEDICINE [facility] December 31, 2024 01:00 PM AMBULATORY - PSYCHIATRY [facility] [place] [facility] Social History: Smoking Status (Most current) and Tobacco Use (All prior to encounter date) This section includes the most current, and the historical, smoking and tobacco- related health factors from the [place] facility where the Encounter took place. Current Smoking Status This section includes the most current smoking, or tobacco-related health factor, from the [place] facility where the Encounter took place. Date/Time Current Smoking Status Comment Taz mae Nov 24, 2023 10:00 AM VA-TOBACCO NEVER USED [place] Tobacco Use History This section includes a history of the smoking, or tobacco-related health factors, that were collected on or before the date of the Encounter. The data comes from the [place] facility where the Encounter took place. Date/Time Smoking Status/Tobacco Use Comment Foreign acility Oct 15, 2022 09:30 AM VA-TOBACCO NEVER USED [place] Nov 02, 2021 09:00 AM VA-TOBACCO NEVER USED [place] Oct 27, 2020 02:00 PM VA-TOBACCO NEVER USED [place] Oct 17, 2020 02:31 PM VA-TOBACCO NEVER USED [place] Jul 27, 2017 10:08 AM LIFETIME NON-TOBACCO USER [place] Sep 17, 2015 12:17 PM LIFETIME NON-TOBACCO USER [place]
--- OUTSIDE RECORDS SUMMARY | 2025-01-02 10:12 | XMS_ITS | Continuity of Care Document ---
Author Name [facility] Organization [facility] Care Team Providers Care Remote Sensing Technologist Name Role Phone [facility] Unavailable Unavailable Problems Combined list of problems from Department of Defense and Veterans Affairs facilities. It does not include entries that were removed or entered in error. Problem Status Onset Date Problem Type Date of Resolution Comments Source Hyperlipidemia, unspecified Active 019 Condition DoD Rt Rib Pain Active 010 Condition Nov 11, 2009 Entered By: ARNOL HANLEY Comment: [facility]: CXR: Negative [facility] Male erectile disorder Active Condition DoD Pain in left ankle and joints of left foot Active Condition DoD Insomnia, unspecified Active Condition DoD Pain in left forearm Active Condition D oD Overweight Active Condition DoD Personal history of colonic polyps Active Condition DoD Family history of malignant neoplasm of digestive organs Active Condition DoD Prediabetes Active Condition DoD Low back pain Active Condition DoD 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 [facility] visit for: services physical Inactive Condition visit for: services physical (INITIAL POST-DEPLOYME NT ASSESSMENT: DOCUMENTED ON [id number]): See attached. [facility] lightheadedness Inactive Condition ligh theadedne ss: Given 1L normal saline bolus with resolution of symptoms. Instructed patient to drink plenty of fluids. BMP unremarkable. CBC showed low WBC but normal Hb and Plt. Patient to return in about 1 week to get repeat CBC. [facility] Ambulatory ECG normal Active Condition Feb 26, 2021 Entered By: VIKI KAMARA Comment: EKG, MARCH 11: NSR; No Ischemic ChangesJun 12, 2021 Entered By: VIKI KAMARA Comment: EKG, JUN 11: NSRApr 2023 Entered By: VIKI KAMARA Comment: ECHO, DEC 13 Jaqueline: EF 55%; no AVS, +Mild LVH (done due to SOB go upstairs) [facility] Chronic Post-Traumatic Stress Disorder (SCT 273084640) Active Condition [facility] Depression (SCT [id number]) Active Condition December 24, 2021 Entered By: JOE CASTELLANOS Comment: reviewedJu2022 Entered By: JOE CASTELLANOS Comment: reviewedMay 31, 2024 Entered By: JOE CASTELLANOS Comment: reviewedNov 05, 2024 Entered By: JOE CASTELLANOS Comment: Reviewed [facility] Exposure to potentially hazardous chemical Active Condition Oct 27, 2020 Entered By: VIKI KAMARA Comment: Daily Burn Pit Exposure [place] 2007-2008Fe2021 Entered By: VIKI KAMARA Comment: Relatively New Dyspnea in 2020:Sep 23, 2021 Entered By: VIKI KAMARA Comment: CT, Lungs SEP 12: No Evidence Intestitial Lung DiseaseFe2021 Entered By: VIKI KAMARA Comment: Incidental Finding for B/L Gynecomastia; Is Asymptomatic for ThisFe2021 Entered By: VIKI KAMARA Comment: PFT's Ordered and Never Happened;Sep 23, 2021 Entered By: VIKI KAMARA Comment: pending Stress Test [facility] for Dyspnea SEP/NOV 10Fe2021 Entered By: VIKI KAMARA Comment: Also, Saw Fondant Cooker SEP 12: Envronmental Allergies Pollen, etc. [facility] History of appendectomy Active Condition Oct 27, 2020 Entered By: VIKI KAMARA Comment: Appendectomy as Child [facility] Hypercholesterolemia (SNOMED CT [id number]) Active Condition [facility] Impotence of organic origin (ICD-9-CM 607.84) Active Condition [facility] Lateral epicondylitis Active Condition Oct 27, 2020 Entered By: VIKI KAMARA Comment: L Side; Due to Lifting [facility] Leukopenia Active Condition Oct 15, 023 Entered By: VIKI KAMARA Comment: Baseline Decreased WBC's; are 3.16 in OCT 14 [facility] lymphectomy Active Condition Oct 27, 2020 Entered By: VIKI KAMARA Comment: PSH of Excision Lymph Nodes Abdomen [facility] medical providers outside [place] Active Condition Jul 27, 2013 Entered By: NADEGE EDMONDS Comment: primary doctor Dewayne Blake [facility] Pain of left ankle joint Active Condition Jul 24, 2021 Entered By: VIKI KAMARA Comment: Purport a LOD Soft Tissue Injury to L Ankle in SEP 11;Jul 24, 2021 Entered By: VIKI KAMARA Comment: May or May Not Need Surg via Ortho Eventually as of AUG 11Au2021 Entered By: VIKI KAMARA Comment: Request MRI APR 12; Ortho after that [facility] Pain of left knee region Active Condition Jul 24, 2021 Entered By: VIKI KAMARA Comment: MRI, L Knee approx L Knee; +MMT;Jul 24, 2021 Entered By: VIKI KAMARA Comment: Meniscal Repair Planned at Some Point;Jul 24, 2021 Entered By: VIKI KAMARA Comment: Problem Identified by Private PCP;Jul 24, 2021 Entered By: VIKI KAMARA Comment: [facility] Entered By: VIKI KAMARA Comment: Purports that this Injury to L Knee Happened In [facility] SEP 11Dec 2020 Entered By: VIKI KAMARA Comment: Retired from [employer] [employer] JUL 12;Jul 24, 2021 Entered By: VIKI KAMARA Comment: So, 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;Jul 24, 2021 Entered By: VIKI KAMARA Comment: Sees Ortho at [facility] 2021 Entered By: VIKI KAMARA Comment: Arthroscopy Done for MMT, L Knee OCT/DEC 11Fe2022 Entered By: VIKI KAMARA Comment: 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, L Knee; Likely Candidate for TKR, L Knee in FutureOct 2022 Entered By: VIKI KAMARA Comment: Request MRI, L Knee JUN 13; May Get TKR,L SideNov 2022 Entered By: VIKI KAMARA Comment: MRI, L Knee JUL 14 Patel: LMT, MMT;Jun 28, 2023 Entered By: VIKI KAMARA Comment: +Osteophytes Tib-Fem and Retro-Sebastian Joints; refer Ortho [facility] Posttraumatic stress disorder Active Condition December 24, 2021 Entered By: JOE CASTELLANOS Comment: reviewedJu2022 Entered By: JOE CASTELLANOS Comment: reviewedMay 31, 2024 Entered By: JOE CASTELLANOS Comment: reviewedNov 05, 2024 Entered By: JOE CASTELLANOS Comment: Reviewed [facility] Recurrent brief depressive disorder Active Condition [facility] Screening for malignant neoplasm of colon done Active Condition Oct 18, 2014 Entered By: DEVYN HENDERSON Comment: had one about [address] Mejía and told ok; Oct 18, 2014 Entered By: DEVYN HENDERSON Comment: next due in 5 yrs form the date of procedure;Oct 15, 2022 Entered By: VIKI KAMARA Comment: Lat Colonoscopy SEP 13: No CRC; No Polyps; Repeat 2032 or prnApr 2023 Entered By: VIKI KAMARA Comment: Last Screen Colonoscopy 2022 (approx jun); Neg CRC; no Polyps;Dec 20, 2023 Entered By: VIKI KAMARA Comment: repeat 2032; sooner prn any LGI sxFeb 2015 Entered By: ARIELLE DUTTON Comment: Pt is due for repeat in 2016- pt knows no history of polyps [facility] Sleep apnea Active Condition Oct 27, 2020 Entered By: VIKI KAMARA Comment: DX w/ WYATT approx 2013; Issued CPAP; Broken as of NOV 09 [facility] PCP: Talha Shore MD: Lou Inactive Condition 07/27/2013 [facility] Diagnosis: ICD-10-CM F43.12 Post-traumatic stress disorder, chronic Active Diagnosis [facility] Diagnosis: ICD-10-CM H66.91 Otitis media, unspecified, right ear Active Diagnosis [facility] Diagnosis: ICD-10-CM H04.123 Dry eye syndrome of bilateral lacrimal glands Active Diagnosis [facility] Diagnosis: ICD-10-CM E78.00 Pure hypercholesterolemia, unspecified Active Diagnosis [facility] Diagnosis: ICD-10-CM F43.10 Post-traumatic stress disorder, unspecified Active Diagnosis [facility] Diagnosis: ICD-10-CM Z46.0 Encounter for fit/adjst of spectacles and contact lenses Active Diagnosis [facility] [place] Diagnosis: ICD-10-CM 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 Diagnosis: ICD-10-CM R00.2 Palpitations Active Diagnosis [facility] Diagnosis: ICD-10-CM Z13.6 Encounter for screening for cardiovascular disorders Active Diagnosis 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 Medication Details Route Status Patient Instructions Prescription Expires Prescription Number Last Dispense Date Ordering Provider Order Date Order Qty Source AMOXICILLIN TRIHYDRATE 875MG/CLAVU LANATE K 125MG TAB TAKE 1 TABLET BY MOUTH TWICE DAILY FOR INFECTIO N ORAL ACTIVE 01/18/2025 [id number] Crystal BALDWIN 2024 20 [facility] IELD atorvastati n (U/D) 40 MG ORAL TAB TAKE ONE-HALF TABLET BY MOUTH ONCE DAILY FOR CHOLESTE ROL 12/20/2024 [id number] VIKI KAMARA 2023 45 [facility] atorvastati n (U/D) 40 MG ORAL TAB TAKE ONE-HALF TABLET BY MOUTH ONCE DAILY FOR CHOLESTE ROL Discont inued 01/27/2024 [id number] VIKI KAMARA 2023 45 [facility] ATORVASTATI N CA 40MG TAB TAKE ONE-HALF TABLET BY MOUTH ONCE DAILY FOR CHOLESTE ROL ORAL ACTIVE 09/18/2025 [id number] DEANNE KAMARA 2024 45 [facility] IELD ATORVASTATI N CA 40MG TAB TAKE ONE-HALF TABLET BY MOUTH ONCE DAILY FOR CHOLESTE ROL ORAL DISCONT INUED (EDIT) 12/20/2024 [id number] 4 DEANNE KAMARA 2023 45 [facility] IELD ATORVASTATI N CA 40MG TAB TAKE ONE-HALF TABLET BY MOUTH ONCE DAILY FOR CHOLESTE ROL ORAL DISCONT INUED 01/27/2024 [id number] 4 DEANNE KAMARA 2022 45 [facility] IELD carboxymeth ylcel 0.5% EYE DROP [2 X15ML] INSTILL 1 DROP INTO EACH EYE FOUR TIMES DAILY NEEDED FOR DRY EYE 11/25/2024 [id number] JAYCE CLARKE E 2023 15 [facility] CARBOXYMETH YLCELLULOSE NA 0.5% SOLN,OPH INSTILL 1 DROP INTO EACH EYE FOUR TIMES DAILY NEEDED FOR DRY EYE OPHTHA LMIC ACTIVE 10/30/2025 [id number] Ame CLARKE NDREW E 2024 15 [facility] CARBOXYMETH YLCELLULOSE NA 0.5% SOLN,OPH INSTILL 1 DROP INTO EACH EYE FOUR TIMES DAILY NEEDED FOR DRY EYE OPHTHA LMIC DISCONT INUED 11/25/2024 [id number] Ame CLARKE NDREW E 2023 15 [facility] CLINDAMYCIN PO4 1% SOLN,TOP APPLY THIN LAYER TOPICALL Y ONCE DAILY NEEDED FOR ACNE TOPICA L ACTIVE 09/18/2025 [id number] DEANNE KAMARA 2024 60 [place] CYANOCOBALA MIN 1,000 MCG ORAL TAB TAKE ONE TABLET BY MOUTH ONCE DAILY 04/15/2024 [id number] SHORTY RODRIGUEZ M 2023 90 [facility] CYANOCOBALA MIN 1000MCG TAB TAKE ONE TABLET BY MOUTH ONCE DAILY ORAL 04/15/2024 [id number] SHORTY RODRIGUEZ M 2022 90 [place] CYMBALTA (BRAND) 30 MG ORAL CPDR TAKE THREE CAPSULES BY MOUTH ONCE DAILY MOOD/PTS D 09/12/2024 [id number] SABRINA CASTELLANOS 2023 90 [facility] DULOXETINE HCL 30MG CAP,EC TAKE THREE CAPSULES BY MOUTH ONCE DAILY MOOD/PTS D ORAL DISCONT INUED (EDIT) 09/12/2024 [id number] Kristyn CASTELLANOS 2023 90 [place] DULOXETINE HCL 60MG CAP,EC TAKE TWO CAPSULES BY MOUTH ONCE DAILY MOOD/PTS D ORAL ACTIVE 06/08/2025 [id number] Kristyn CASTELLANOS 2023 60 [place] FLUTICASONE PROPIONATE 50MCG/SPRAY SOLN,NASAL, 16GM INSTILL 1 SPRAY INTO EACH NOSTRIL ONCE DAILY FOR NASAL IRRITATI ON/INFLA MMATION NASAL ACTIVE 12/20/2025 [id number] Crystal BALDWIN 2024 1 [place] Loratadine (Alavert ODT) Tablet 10 mg Oral TAKE ONE TABLET BY MOUTH ONCE DAILY FOR ALLERGY 12/28/2024 [id number] VIKI KAMARA 2023 30 [facility] Loratadine (Alavert ODT) Tablet 10 mg Oral TAKE ONE TABLET BY MOUTH ONCE DAILY FOR ALLERGY 10/06/2023 [id number] VIKI KAMARA 2023 10 [facility] LORATADINE 10MG TAB TAKE ONE TABLET BY MOUTH ONCE DAILY FOR ALLERGY ORAL ACTIVE 03/19/2025 [id number] 5 Crystal BALDWIN 2024 90 [place] LORATADINE 10MG TAB TAKE ONE TABLET BY MOUTH ONCE DAILY FOR ALLERGY ORAL DISCONT INUED 12/28/2024 [id number] DEANNE KAMARA 2023 30 [place] TRAZODONE HCL 50MG TAB TAKE ONE AND ONE-HALF TABLETS BY MOUTH AT BEDTIME NEEDED INSOMNIA ORAL ACTIVE 06/08/2025 [id number] Kristyn CASTELLANOS 2023 45 [place] TRAZODONE HCL 50MG TAB TAKE ONE TABLET BY MOUTH AT BEDTIME NEEDED INSOMNIA ORAL DISCONT INUED (EDIT) 03/06/2025 [id number] 4 Kristyn CASTELLANOS 2023 30 [place] TRAZODONE HCL 50MG TAB TAKE ONE TABLET BY MOUTH AT BEDTIME NEEDED INSOMNIA ORAL DISCONT INUED 06/09/2024 [id number] 4 Kristyn CASTELLANOS 2022 30 [facility] IELD Trazodone Hydrochlori de (Desyrel Eq.) Tablet 50 mg Oral TAKE ONE TABLET BY MOUTH AT BEDTIME NEEDED INSOMNIA 06/09/2024 [id number] SABRINA CASTELLANOS 2023 30 [facility] TRIAMCINOLO NE ACETONIDE 0.1% CREAM,TOP APPLY A THIN LAYER TOPICALL Y TWICE DAILY NEEDED FOR ITCHING TOPICA L ACTIVE 09/18/2025 [id number] DEANNE KAMARA 2024 80 [facility] IE Allergies, Adverse Reactions, Alerts Combined list of allergies from Department of Defense and Veterans Affairs facilities. It does not include entries that were removed or entered in error. Substance Category Reaction Severity Reaction type Status Date Reported Comments Source No Known Allergies Drug allergy (disorder) active 12/06/2018 [facility] [address] Immunizations Combined list of available immunizations from the Department of Defense and Veterans Affairs facilities. Immunization Series Date Given Administered By Site Reaction Lot Number CVX Code Drug Drain Layer Status Comments Source INFLUENZA, SPLIT VIRUS, TRIVALENT, PF 2024 PENG ALEMAN LEFT DELTO ID [id number] 140 complet ed [facility] IELD INFLUENZA, INJECTABLE, QUADRIVALENT, PRESERVATIVE FREE 2022 PENG ALEMAN LEFT DELTO ID [id number] 150 complet ed [facility] IELD INFLUENZA, INJECTABLE, QUADRIVALENT, PRESERVATIVE FREE 2020 150 complet ed [facility] IELD COVID Vaccine Moderna 2020 Milad foley Arm [id number] 207 complet ed COVID Vaccine Moderna 10/26/20 Given Ambulat ory Pharmac y SARS-COV-2 (COVID-19) vaccine, mRNA, spike protein, LNP, preservative free, 100 mcg or 50 mcg dose 2 2020 Unknown, Provider [id number] 207 Moderna Qu[employer] (MOD) complet ed SARS-COV- 2 (COVID-19 ) vaccine, mRNA, spike protein, LNP, preservat felicita free, 100 mcg or 50 mcg dose DoD COVID-19 (MODERNA), MRNA, LNP-S, PF, 100 MCG/0.5 ML DOSE 2 2020 207 complet ed [facility] [place] [facility] COVID Vaccine Moderna 2020 [id number] 207 complet ed COVID Vaccine Moderna 09/29/20 Given Ambulat ory Pharmac y SARS-COV-2 (COVID-19) vaccine, mRNA, spike protein, LNP, preservative free, 100 mcg or 50 mcg dose 1 2020 [id number] 207 Moderna [employer] (MOD) complet ed SARS-COV- 2 (COVID-19 ) vaccine, mRNA, spike protein, LNP, preservat felicita free, 100 mcg or 50 mcg dose DoD COVID-19 (MODERNA), MRNA, LNP-S, PF, 100 MCG/0.5 ML DOSE 1 2020 207 complet ed [facility] [place] [facility] [facility] COVID-19 (MODERNA), MRNA, LNP-S, PF, 100 MCG/0.5 ML DOSE 1 2020 207 complet ed [facility] [place] [facility] influenza, injectable, quadrivalent- pf 2019 TRANSCR IBED 150 complet ed influenza , injectabl e, quadrival ent-pf 08/04/20 Given Ambulat ory Pharmac y influenza, injectable, quadrivalent, preservative free 2019 MAGDA, () Not Given influenza , injectabl e, quadrival ent, preservat felicita free DoD Influenza, injectable, quadrivalent, preservative free 1 2019 150 Transcribed (TRS) complet ed Influenza , injectabl e, quadrival ent, preservat felicita free DoD INFLUENZA, UNSPECIFIED FORMULATION 2019 88 complet ed [facility] INFLUENZA, UNSPECIFIED FORMULATION 2019 88 complet ed [facility] [place] [facility] anthrax vaccine 2019 [id number] Emergent Biosolutions complet ed anthrax vaccine 01/01/20 Given Ambulat ory Pharmac y typhoid Vi capsular polysaccharid e vac 2019 [id number] 101 sanofi pasteur complet ed typhoid Vi capsular polysacch aride vac 01/01/20 Given Ambulat ory Pharmac y anthrax vaccine 5 2019 [id number] 24 [employer] [place] (MIP) complet ed anthrax vaccine DoD typhoid Vi capsular polysaccharid e vaccine 5 2019 [id number] Sanofi Cammy (PMC) complet ed typhoid Vi capsular polysacch aride vaccine DoD COVID-19 (MODERNA), MRNA, LNP-S, PF, 100 MCG/0.5 ML DOSE 2 2019 207 [facility] ed [facility] influenza, injectable, quadrivalent- pf 2018 [id number] 150 Seqirus complet ed influenza , injectabl e, quadrival ent-pf 07/29/19 Given Ambulat ory Pharmac y Influenza, injectable, quadrivalent, preservative free 0 2018 [id number] 150 Seqirus (SEQ) complet ed Influenza , injectabl e, quadrival ent, preservat felicita free DoD influenza, injectable, quadrivalent- pf 2017 [id number] 150 Se[employer]irus complet ed influenza , injectabl e, quadrival ent-pf 06/09/18 Given Ambulat ory Pharmac y Influenza, injectable, quadrivalent, preservative free 18 2017 [id number] 150 Seqirus (SEQ) comple t ed Influenza , injectabl e, quadrival ent, preservat felicita free DoD INFLUENZA, SEASONAL, INJECTABLE [address] [facility] [place] [facility] influenza, injectable, quadrivalent- pf 2016 [id number] 150 GlaxoSmithKli ne complet ed influenza , injectabl e, quadrival ent-pf 06/17/17 Given Ambulat ory Pharmac y Influenza, injectable, quadrivalent, preservative free 17 2016 [id number] 150 SmithKline (SKB) complet ed Influenza , injectabl e, quadrival ent, preservat felicita free DoD influenza, seasonal, injectable-pf 2015 [id number] 140 GlaxoSmithKli ne complet ed influenza , seasonal, injectabl e-pf 06/28/16 Given Ambulat ory Pharmac y Influenza, seasonal, injectable, preservative free 1 2015 [id number] 140 SmithKline (SKB) complet ed Influenza , seasonal, injectabl e, preservat felicita free DoD influenza, seasonal, injectable-pf 2014 [id number] 140 CSL Behring complet ed influenza , seasonal, injectabl e-pf 06/08/15 Given Ambulat ory Pharmac y Influenza, seasonal, injectable, preservative free 0 2014 [id number] 140 CS Biotherapies[employer] Inc. (CSL) complet ed Influenza , seasonal, injectabl e, preservat felicita free DoD FLU,3 YRS (HISTORICAL) 2014 88 complet ed currently in [employer], rec[place] [facility] influenza, seasonal, injectable-pf 2013 [id number] 140 CSL Behring complet ed influenza , seasonal, injectabl e-pf 05/26/14 Given Ambulat ory Pharmac y Influenza, seasonal, injectable, preservative free 0 2013 [id number] 140 CSL [employer]otherap[employer] Inc. (CSL) complet ed Influenza , seasonal, injectabl e, preservat felicita free DoD FLU,3 YRS (HISTORICAL) 2012 88 complet ed Site: Left Deltoid [place] influenza, seasonal, injectable 2012 [id number] 141 CSL Behring complet ed influenza , seasonal, injectabl e 07/27/13 Given Ambulat ory Pharmac y Influenza, seasonal, injectable 1 2012 [id number] 141 CS VouchARherapies, Inc. (CSL) complet ed Influenza , seasonal, injectabl e DoD measles/mumps /rubella virus vaccine 2012 [id number] 03 Merck & Company Inc complet ed measles/m umps/rube lla virus vaccine 05/14/13 Given Ambulat ory Pharmac y anthrax vaccine 2012 [id number] 24 Emergent Biosolutions complet ed anthrax vaccine 05/14/13 Given Ambulat ory Pharmac y measles, mumps and rubella virus vaccine 2 2012 [id number] 03 Merck (MSD) complet ed measles, mumps and rubella virus vaccine DoD anthrax vaccine 4 2012 [id number] 24 [employer] [place] ([facility]) complet ed anthrax vaccine DoD anthrax vaccine 2012 [id number] [employer]gent [employer]olutions complet ed anthrax vaccine 10/28/12 Given Ambulat ory Pharmac y anthrax vaccine 3 2012 [id number] 24 [employer] [place] ([facility]) complet ed anthrax vaccine DoD typhoid Vi capsular polysaccharid e vac 2012 H4163-1 101 sanofi pasteur complet ed typhoid Vi capsular polysacch aride vac 10/13/12 Given Ambulat ory Pharmac y typhoid Vi capsular polysaccharid e vaccine 4 2012 T0327-7 101 Sanofi Pasteur ([facility]) complet ed typhoid Vi capsular polysacch aride vaccine DoD influenza, seasonal, injectable-pf 2011 [id number] 140 CSL Behring complet ed influenza , seasonal, injectabl e-pf 06/04/12 Given Ambulat ory Pharmac y Influenza, seasonal, injectable, preservative free 12 2011 [id number] 140 CS [email or web address] Inc. (CS) complet ed Influenza , seasonal, injectabl e, preservat felicita free DoD tetanus, diphtheria, acellular pertu is 2011 [id number] 115 sanofi pasteur complet ed tetanus, diphtheri a, acellular pertussis 01/23/12 Given Ambulat ory Pharmac y tetanus toxoid, reduced diphtheria toxoid, and acellular pertu is vaccine, adsorbed 0 2011 [id number] 115 Sanofi Pasteur ([facility]) complet ed tetanus toxoid, reduced diphtheri a toxoid, and acellular pertussis vaccine, adsorbed DoD influenza virus vaccine, live 2010 [id number] 111 Medimmune Inc comple t ed influenza virus vaccine, live 07/10/11 Given Ambulat ory Pharmac y influenza virus vaccine, live, attenuated, for intranasal use 11 2010 [id number] 111 Bioxodes, Inc. (MED) complet ed influenza virus vaccine, live, attenuate d, for intranasa l use DoD influenza virus vaccine, live 2009 [id number] 111 Medimmune Inc comple t ed influenza virus vaccine, live 06/27/10 Given Ambulat ory Pharmac y influenza virus vaccine, live, attenuated, for intranasal use 1 2009 [id number] 111 TILE Financialune, Inc. (MED) complet ed influenza virus vaccine, live, attenuate d, for intranasa l use [facility] FLU,3 YRS (HISTORICAL) 2009 88 complet ed [facility] influenza virus vaccine, live 2009 [id number] 111 Medimmune Inc comple t ed influenza virus vaccine, live 08/30/09 Given Ambulat ory Pharmac y Novel influenza-H1N 1-09, injectable 2009 [id number] 1/83718 5P 127 Novartis Pharmaceutica ls complet ed Novel influenza -F8A6-93, injectabl e 08/30/09 Given Ambulat ory Pharmac y influenza virus vaccine, live, attenuated, for intranasal use 1 2009 [id number] 111 Bioxodes, Inc. (MED) complet ed influenza virus vaccine, live, attenuate d, for intranasa l use [facility] Novel influenza-H1N 1-09, injectable 1 2009 [id number] 1/44910 5P 127 Novartis Pharmaceutica l Da[place]. (NOV) complet ed Novel influenza -B0E1-09, injectabl e [facility] DTAP, UNSPECIFIED FORMULATION 2009 107 complet [facility] FLU,3 YRS (HISTORICAL) 2009 88 complet ed 0710-07 90 RESERVE D-DESER T STOR NOVEL INFLUENZA-H1N 1-09, ALL FORMULATIONS 2009 128 complet [facility] influenza virus vaccine,split 2007 [id number] 15 GlaxoSmithKli ne complet ed influenza virus vaccine,s plit 07/17/08 Given Ambulat ory Pharmac y influenza virus vaccine, split virus (incl. purified surface antigen)-reti red CODE 0 2007 [id number] 15 SmithLiquid5ine (SKB) complet ed influenza virus vaccine, split virus (incl. purified surface antigen)- retired CODE DoD anthrax vaccine 2007 [id number] 24 Emergent Biosolutions complet ed anthrax vaccine 04/26/08 Given Ambulat ory Pharmac y anthrax vaccine 3 2007 [id number] 24 [employer] [place] (MIP) complet ed anthrax vaccine DoD anthrax vaccine 2007 [id number] 24 [employer] complet ed anthrax vaccine 03/30/08 Given Ambulat ory Pharmac y anthrax vaccine 2 2007 [id number] 24 [employer] [place] ([facility]) complet ed anthrax vaccine DoD anthrax vaccine 2007 [id number] 24 [employer] complet ed anthrax vaccine 02/26/08 Given Ambulat ory Pharmac y anthrax vaccine 1 2007 [id number] 24 [employer] [place] ([facility]) complet ed anthrax vaccine DoD typhoid Vi capsular polysaccharid e vac 2007 [id number] 101 sanofi pasteur complet ed typhoid Vi capsular polysacch aride vac 01/27/08 Given Ambulat ory Pharmac y typhoid Vi capsular polysaccharid e vaccine 1 2007 [id number] 101 Sanofi Pasteur ([facility]) complet ed typhoid Vi capsular polysacch aride vaccine DoD influenza virus vaccine,split 2006 [id number] 15 sanofi pasteur complet ed influenza virus vaccine,s plit 08/18/07 Given Ambulat ory Pharmac y influenza virus vaccine, split virus (incl. purified surface antigen)-reti red CODE 1 2006 [id number] 15 Sanofi Pasteur ([facility]) complet ed influenza virus vaccine, split virus (incl. purified surface antigen)- retired CODE [facility] influenza virus vaccine, live 2005 111 complet ed influenza virus vaccine, live 06/20/06 Given Ambulat ory Pharmac y influenza virus vaccine, live, attenuated, for intranasal use 1 2005 111 () complet ed influenza virus vaccine, live, attenuate d, for intranasa l use [facility] typhoid vaccine, inactivated 2005 [id number] sanofi pasteur complet ed typhoid vaccine, inactivat ed 10/16/05 Given Ambulat ory Pharmac y typhoid vaccine, parenteral, other than acetone-kille d, dried 1 2005 [id number] 41 Sanofi Pasteur ([facility]) complet ed typhoid vaccine, parentera l, other than acetone-k illed, dried DoD influenza virus vaccine,split 2004 [id number] 15 sanofi pasteur complet ed influenza virus vaccine,s plit 07/25/05 Given Ambulat ory Pharmac y influenza virus vaccine, split virus (incl. purified surface antigen)-reti red CODE 1 2004 [id number] 15 Sanofi Pasteur ([facility]) complet ed influenza virus vaccine, split virus (incl. purified surface antigen)- retired CODE Do[facility] influenza virus vaccine,split 2004 [id number] 15 sanofi pasteur complet ed influenza virus vaccine,s plit 09/30/04 Given Ambulat ory Pharmac y influenza virus vaccine, split virus (incl. purified surface antigen)-reti red CODE 0 2004 [id number] 15 Sanofi Pasteur ([facility]) complet ed influenza virus vaccine, split virus (incl. purified surface antigen)- retired CODE DoD vaccinia (smallpox) vaccine 2004 [id number] 75 [facility] complet ed vaccinia (smallpox ) vaccine 09/01/04 Given Ambulat ory Pharmac y vaccinia (smallpox) vaccine 0 2004 [id number] 75 [facility] ([facility]) complet ed vaccinia (smallpox ) vaccine DoD tuberculin purified protein derivative 2003 zzLef t Arm [id number] 96 sanofi pasteur complet ed Patient Tolerance : Negative Ambulat ory Pharmac y tuberculin skin test; purified protein derivative solution, intradermal 1 2003 Unknown, Provider [id number] 96 Sanofi Pasteur ([facility]) complet ed tuberculi n skin test; purified protein derivativ e solution, intraderm al DoD hepatitis B adult vaccine 2002 [id number] 43 [employer] complet ed hepatitis B adult vaccine 07/27/03 Given Ambulat ory Pharmac y influenza virus vaccine, whole virus 2002 [id number] 16 sanofi pasteur complet ed influenza virus vaccine, whole virus 07/27/03 Given Ambulat ory Pharmac y influenza virus vaccine, whole virus 0 2002 [id number] 16 Sanofi Pasteur ([facility]) complet ed influenza virus vaccine, whole virus DoD hepatitis B vaccine, adult dosage 3 2002 [id number] [id number] 43 [employer] ([facility]) complet ed hepatitis B vaccine, adult dosage DoD typhoid vaccine, inactivated 2002 [id number] 101 sanofi pasteur complet ed typhoid vaccine, inactivat ed 04/13/03 Given Ambulat ory Pharmac y typhoid vaccine, parenteral, other than acetone-kille d, dried 0 2002 [id number] 41 Sanofi Pasteur ([facility]) complet ed typhoid vaccine, parentera l, other than acetone-k illed, dried DoD tuberculin purified protein derivative 2002 zzLef t Arm [id number] 96 sanofi pasteur complet ed Patient Tolerance : Negative Ambulat ory Pharmac y hepatitis B adult vaccine 2002 [id number] A4 43 [employer] Inc complet ed hepatitis B adult vaccine 11/28/02 Given Ambulat ory Pharmac y hepatitis B vaccine, adult dosage 2 2002 [id number] [id number] 43 Merck (MSD) complet ed hepatitis B vaccine, adult dosage DoD tuberculin skin test; purified protein derivative solution, intradermal 1 2002 Unknown, Provider [id number] 96 Sanofi Pasteur ([facility]) complet ed tuberculi n skin test; purified protein derivativ e solution, intraderm al DoD hepatitis B adult vaccine 2002 [id number] A4 43 [employer] complet ed hepatitis B adult vaccine 11/01/02 Given Ambulat ory Pharmac y hepatitis B vaccine, adult dosage 1 2002 [id number] A4 43 Merck (MSD) complet ed hepatitis B vaccine, adult dosage DoD influenza virus vaccine, whole virus 2001 [id number] 16 sanofi pasteur complet ed influenza virus vaccine, whole virus 07/26/02 Given Ambulat ory Pharmac y hepatitis A adult vaccine 2001 [id number] 52 [employer] complet ed hepatitis A adult vaccine 07/26/02 Given Ambulat ory Pharmac y influenza virus vaccine, whole virus 0 2001 [id number] 16 Sanofi Pasteur ([facility]) complet ed influenza virus vaccine, whole virus DoD hepatitis A vaccine, adult dosage 2 2001 [id number] 52 Merck (MSD) complet ed hepatitis A vaccine, adult dosage DoD hepatitis A adult vaccine 2001 [id number] 52 [employer] complet ed hepatitis A adult vaccine 10/25/01 Given Ambulat ory Pharmac y tuberculin purified protein derivative 2001 zzLef t Arm [id number] 96 sanofi pasteur complet ed Patient Tolerance : Negative Ambulat ory Pharmac y tetanus-dipht h toxoids (Td) adult/adol 2001 [id number] 09 sanofi pasteur complet ed tetanus-d iphth toxoids (Td) adult/ado l 10/25/01 Given Ambulat ory Pharmac y influenza virus vaccine, whole virus 2001 [id number] 16 sanofi pasteur complet ed influenza virus vaccine, whole virus 10/25/01 Given Ambulat ory Pharmac y tetanus and diphtheria toxoids, adsorbed, preservative free, for adult use (2 Lf of tetanus toxoid and 2 Lf of diphtheria toxoid) 0 2001 [id number] 09 Sanofi Pasteur ([facility]) complet ed tetanus and diphtheri a toxoids, adsorbed, preservat felicita free, for adult use (2 Lf of tetanus toxoid and 2 Lf of diphtheri a toxoid) DoD influenza virus vaccine, whole virus 0 2001 [id number] 16 Sanofi Pasteur ([facility]) complet ed influenza virus vaccine, whole virus DoD hepatitis A vaccine, adult dosage 1 2001 [id number] 52 Merck (MSD) complet ed hepatitis A vaccine, adult dosage DoD tuberculin skin test; purified protein derivative solution, intradermal 1 2001 Unknown, Provider [id number] Sanofi Pasteur ([facility]) complet ed tuberculi n skin test; purified protein derivativ e solution, intraderm al DoD poliovirus vaccine, live, oral 1979 02 complet ed polioviru s vaccine, live, oral 06/22/80 Given Ambulat ory Pharmac y measles/mumps /rubella virus vaccine 1979 03 complet ed measles/m umps/rube lla virus vaccine 06/22/80 Given Ambulat ory Pharmac y trivalent poliovirus vaccine, live, oral 0 1979 02 Transcribed (TRS) complet ed trivalent polioviru s vaccine, live, oral DoD measles, mumps and rubella virus vaccine 0 1979 03 Transcribed (TRS) complet ed measles, mumps and rubella virus vaccine DoD Results Combined list of recent chemistry, hematology and other laboratory results from Department of Defense and Veterans Affairs, ranging from 15 months to all on record, depending upon the facility. Order Name Results Value Reference Range Date Interpretation Specimen Comments Source MICROALB UMIN CREATINI NE RATIO PANEL MICROALBUM IN/CREATIN INE [MASS RATIO] IN URINE 31.9 mg/g 0 - 29.9 09/11 H Specimen Type: URINE No comment entered. Ordering Provider: VIKI KAMARA Report Released Date/Time: Dec 20, 2023 10:39 AM Reporting Lab: [facility] [address] [facility] [address] Performing Lab: [facility]ITALRL.[facility]ITALTRN [facility]USE[facility] [address] [address] [place] MICROALB UMIN CREATINI NE RATIO PANEL MICROALBUM IN [MASS/VOLU ME] IN URINE 6.1 mg/dL 09/11 Specimen Type: URINE No comment entered. Ordering Provider: VIKI KAMARA Report Released Date/Time: Dec 20, 2023 10:39 AM Reporting Lab: [facility]ITALRL.[facility]PITALTRN [facility] [address] [facility] [address] Performing Lab: [facility]ITALRTHOMAS HOSPITALN [address] [address] [place] MICROALB UMIN CREATINI NE RATIO PANEL CREATININE [MASS/VOLU ME] IN URINE 191.08 mg/dL 09/11 Specimen Type: URINE No comment entered. Ordering Provider: VIKI KAMARA Report Released Date/Time: Dec 20, 2023 10:39 AM Reporting Lab: [facility]ITALRL.V[facility]OSPITALTRN [address] [address] Performing Lab: [facility]PITALRTHOMAS HOSPITALN [address] [address] [place] URINALYS IS COLOR OF URINE Light-Ye llow 09/11 Specimen Type: URINE Comment: If Glucose = >500 and Ketones are positive, please alert the Physician. Ordering Provider: VIKI KAMARA Report Released Date/Time: Dec 20, 2023 10:39 AM Reporting Lab: [facility]ITALRL.V[facility] HOSPITALTRN [address] [address] Performing Lab: [facility]ITALRTHOMAS HOSPITALN [address] [address] [place] URINALYS IS APPEARANCE OF URINE Clear 09/11 Specimen Type: URINE Comment: If Glucose = >500 and Ketones are positive, please alert the Physician. Ordering Provider: VIKI KAMARA Report Released Date/Time: Dec 20, 2023 10:39 AM Reporting Lab: [facility]ITALRTHOM[facility] HOSPITALN [address] [address] Performing Lab: [facility] [address] [address] [place] URINALYS IS GLUCOSE [MASS/VOLU ME] IN URINE Normalmg /dL 09/11 Specimen Type: URINE Comment: If Glucose = >500 and Ketones are positive, please alert the Physician. Ordering Provider: VIKI KAAMRA Report Released Date/Time: Dec 20, 2023 10:39 AM Reporting Lab: [facility] [address] [address] Performing Lab: [address] [address] [place] URINALYS IS KETONES [MASS/VOLU ME] IN URINE BY TEST STRIP NEGATIVE mg/dL 09/11 Specimen Type: URINE Comment: If Glucose = >500 and Ketones are positive, please alert the Physician. Ordering Provider: VIKI KAMARA Report Released Date/Time: Dec 20, 2023 10:39 AM Reporting Lab: [facility] [address] [address] Performing Lab: [facility] [address] [address] [place] URINALYS IS ERYTHROCYT ES [PRESENCE] IN URINE SEDIMENT BY LIGHT MICROSCOPY NEGATIVE mg/dL 09/11 Specimen Type: URINE Comment: If Glucose = >500 and Ketones are positive, please alert the Physician. Ordering Provider: VIKI KAMARA Report Released Date/Time: Dec 20, 2023 10:39 AM Reporting Lab: [facility]N [facility]ITALUSE[address] [address] Performing Lab: [facility] [address] [address] [place] URINALYS IS PROTEIN [MASS/VOLU ME] IN URINE BY TEST STRIP 20 mg/dL 09/11 Specimen Type: URINE Comment: If Glucose = >500 and Ketones are positive, please alert the Physician. Ordering Provider: VIKI KAMARA Report Released Date/Time: Dec 20, 2023 10:39 AM Reporting Lab: [facility] [address] [place] [address] Performing Lab: [address] [address] [place] URINALYS IS NITRITE [PRESENCE] IN URINE NEGATIVE mg/dL 09/11 Specimen Type: URINE Comment: If Glucose = >500 and Ketones are positive, please alert the Physician. Ordering Provider: VIKI KAMARA Report Released Date/Time: Dec 20, 2023 10:39 AM Reporting Lab: [address] [address] Performing Lab: [address] [address] [place] URINALYS IS BILIRUBIN. TOTAL [PRESENCE] IN URINE NEGATIVE mg/dL 09/11 Specimen Type: URINE Comment: If Glucose = >500 and Ketones are positive, please alert the Physician. Ordering Provider: VIKI KAMARA Report Released Date/Time: Dec 20, 2023 10:39 AM Reporting Lab: [address] [address] Performing Lab: [address] [address] [place] URINALYS IS SPECIFIC GRAVITY OF URINE BY REFRACTOME TRY 1.022 1.016 - 1.022 09/11 Specimen Type: URINE Comment: If Glucose = >500 and Ketones are positive, please alert the Physician. Ordering Provider: VIKI KAMARA Report Released Date/Time: Dec 20, 2023 10:39 AM Reporting Lab: [address] [address] Performing Lab: [address] [address] [place] URINALYS IS PH OF URINE BY TEST STRIP 5.5 5.0 - 9.0 09/11 Specimen Type: URINE Comment: If Glucose = >500 and Ketones are positive, please alert the Physician. Ordering Provider: VIKI KAMARA Report Released Date/Time: Dec 20, 2023 10:39 AM Reporting Lab: [address] [place] [address] Performing Lab: [facility] [address] [address] [place] URINALYS IS UROBILINOG EN [MASS/VOLU ME] IN URINE BY TEST STRIP Normalmg /dL <2.0 - 2.0 09/11 Specimen Type: URINE Comment: If Glucose = >500 and Ketones are positive, please alert the Physician. Ordering Provider: VIKI KAMARA Report Released Date/Time: Dec 20, 2023 10:39 AM Reporting Lab: [address] [address] Performing Lab: [address] [address] [place] URINALYS IS LEUKOCYTE ESTERASE [PRESENCE] IN URINE BY TEST STRIP NEGATIVE 09/11 Specimen Type: URINE Comment: If Glucose = >500 and Ketones are positive, please alert the Physician. Ordering Provider: VIKI KAMARA Report Released Date/Time: Dec 20, 2023 10:39 AM Reporting Lab: [address] [address] Performing Lab: [address] [address] [place] PSA PROSTATE SPECIFIC AG [MASS/VOLU ME] IN SERUM OR PLASMA 0.66 ng/mL 0.00 - 4.00 09/11 Specimen Type: SERUM No comment entered. Ordering Provider: VIKI KAMARA Report Released Date/Time: Dec 20, 2023 10:39 AM Reporting Lab: [address] [address] Performing Lab: [address] [address] [place] URIC ACID URATE [MASS/VOLU ME] IN SERUM OR PLASMA 4.9 mg/dL 3.5 - 7.2 09/11 Specimen Type: SERUM No comment entered. Ordering Provider: VIKI KAMARA Report Released Date/Time: Dec 20, 2023 10:39 AM Reporting Lab: [facility]N [facility]ITALUSETS [facility] [address] [facility] [address] Performing Lab: [facility]PITALRTHOMAS HOSPITALN [facility]ITALUSETS [facility] [address] [address] [place] CALCIUM CALCIUM [MASS/VOLU ME] IN SERUM OR PLASMA 9.8 mg/dL 8.5 - 10.2 09/11 Specimen Type: SERUM No comment entered. Ordering Provider: VIKI KAMARA Report Released Date/Time: Dec 20, 2023 10:39 AM Reporting Lab: [facility] HOSPITALRL TRN [facility]PITALUSETS [facility] [address] [facility] [address] Performing Lab: [facility]OSPITALRTHOMAS HOSPITALN [facility]ITALUSE[address] [address] [place] LIVER FUNCTION PROTEIN [MASS/VOLU ME] IN SERUM OR PLASMA 8.7 g/dL 6.0 - 8.3 09/11 H Specimen Type: SERUM No comment entered. Ordering Provider: VIKI KAMARA Report Released Date/Time: Dec 20, 2023 10:39 AM Reporting Lab: [facility]OSPITALRTHOMAS HOSPITALN [facility]ITALUSEKNICKERBOCKER [facility]OS[facility]ITAL [address] [facility] [address] Performing Lab: [facility]ITALUSE[address] [address] [place] LIVER FUNCTION ALBUMIN [MASS/VOLU ME] IN SERUM OR PLASMA 4.1 g/dL 3.5 - 5.0 09/11 Specimen Type: SERUM No comment entered. Ordering Provider: VIKI KAMARA Report Released Date/Time: Dec 20, 2023 10:39 AM Reporting Lab: [facility] HOSPITALRL [facility]N [facility]PITALUSETS [address] [address] Performing Lab: [facility]OSPITALRTHOMAS HOSPITALN [facility]ITALUSE[address] [address] [place]IVER FUNCTION ALKALINE PHOSPHATAS E [ENZYMATIC ACTIVITY/V OLUME] IN SERUM OR PLASMA 50 U/L 40 - 150 09/11 Specimen Type: SERUM No comment entered. Ordering Provider: VIKI KAMARA Report Released Date/Time: Dec 20, 2023 10:39 AM Reporting Lab: [facility]OSPITALRL.V. [facility] HOSPITALTRN [facility]ITALUSE[address] [address] Performing Lab: [place] [facility] [place] [facility] [address] [facility] [address] [place] LIVER FUNCTION ASPARTATE AMINOTRANS FERASE [ENZYMATIC ACTIVITY/V OLUME] IN SERUM OR PLASMA 18 U/L 5 - 34 09/11 Specimen Type: SERUM No comment entered. Ordering Provider: VIKI KAMARA Report Released Date/Time: Dec 20, 2023 10:39 AM Reporting Lab: [facility] [place] [facility] [address] [facility] [address] Performing Lab: [facility] [place] [facility] [address] [facility] [address] [place] LIVER FUNCTION ALANINE AMINOTRANS FERASE [ENZYMATIC ACTIVITY/V OLUME] IN SERUM OR PLASMA 20 U/L 09/11 Specimen Type: SERUM No comment entered. Ordering Provider: VIKI KAMARA Report Released Date/Time: Dec 20, 2023 10:39 AM Reporting Lab: [place] [facility] [place] [facility] [address] [facility] [address] Performing Lab: [place] [facility] [place] [facility] [address] [facility] [address] [place] LIVER FUNCTION BILIRUBIN. TOTAL [MASS/VOLU ME] IN SERUM OR PLASMA 0.4 mg/dL 0.2 - 1.2 09/11 Specimen Type: SERUM No comment entered. Ordering Provider: VIKI KAMARA Report Released Date/Time: Dec 20, 2023 10:39 AM Reporting Lab: [facility]ITALUSETS [facility] [address] [facility] [address] Performing Lab: [place] [facility] [place] [facility] [address] [facility] [address] [place] LIPID PANEL FASTING CHOLESTERO L [MASS/VOLU ME] IN SERUM OR PLASMA 239 mg/dL 09/11 H Specimen Type: SERUM No comment entered. Ordering Provider: VIKI KAMARA Report Released Date/Time: Dec 20, 2023 10:39 AM Reporting Lab: [facility]OSPITALRL WSTRN [facility]ITALUSETS [facility] [address] [facility] [address] Performing Lab: [place] [facility]US[facility]ETS [facility] [address] [facility] [address] [place] LIPID PANEL FASTING TRIGLYCERI DE [MASS/VOLU ME] IN SERUM OR PLASMA 158 mg/dL 0 - 150 09/11 H Specimen Type: SERUM No comment entered. Ordering Provider: VIKI KAMARA Report Released Date/Time: Dec 20, 2023 10:39 AM Reporting Lab: [facility] [address] [facility] [address] Performing Lab: [facility]ITALRTHOMAS HOSPITALN [facility] [address] [facility] [address] [place] LIPID PANEL FASTING CHOLESTERO L IN LDL [MASS/VOLU ME] IN SERUM OR PLASMA BY CALCULATIO N 153 mg/dL 0 - 129 09/11 H Specimen Type: SERUM No comment entered. Ordering Provider: VIKI KAMARA Report Released Date/Time: Dec 20, 2023 10:39 AM Reporting Lab: [facility] [address] [address] Performing Lab: [facility] [address] [address] [place] LIPID PANEL FASTING CHOLESTERO L.TOTAL/CH OLESTEROL IN HDL [MASS RATIO] IN SERUM OR PLASMA 4.4 09/11 Specimen Type: SERUM No comment entered. Ordering Provider: VIKI KAMARA Report Released Date/Time: Dec 20, 2023 10:39 AM Reporting Lab: [facility] [address] [address] Performing Lab: [facility] [address] [address] [place] LIPID PANEL FASTING CHOLESTERO L IN HDL [MASS/VOLU ME] IN SERUM OR PLASMA 54 mg/dL 40 - 60 09/11 Specimen Type: SERUM No comment entered. Ordering Provider: VIKI KAMARA Report Released Date/Time: Dec 20, 2023 10:39 AM Reporting Lab: [facility] [address] [address] Performing Lab: [facility] [address] [address] [place] TSH THYROTROPI N [UNITS/VOL UME] IN SERUM OR PLASMA 3.35 u[IU]/mL 0.35 - 5.00 09/11 Specimen Type: SERUM No comment entered. Ordering Provider: VIKI KAMARA Report Released Date/Time: Dec 20, 2023 10:39 AM Reporting Lab: [facility] [address] [facility] [address] Performing Lab: [facility] [address] [facility] [address] [place] BASIC METABOLI C PANEL (fasting ) UREA NITROGEN [MASS/VOLU ME] IN SERUM OR PLASMA 17 mg/dL 7 - 25 09/11 Specimen Type: SERUM No comment entered. Ordering Provider: VIKI KAMARA Report Released Date/Time: Dec 20, 2023 10:39 AM Reporting Lab: [address] [address] Performing Lab: [facility] [address] [address] [place] BASIC METABOLI C PANEL (fasting ) GLUCOSE [MASS/VOLU ME] IN SERUM OR PLASMA 101 mg/dL 65 - 100 09/11 H Specimen Type: SERUM No comment entered. Ordering Provider: VIKI KAMARA Report Released Date/Time: Dec 20, 2023 10:39 AM Reporting Lab: [facility] [address] [address] Performing Lab: [facility] [address] [address] [place] BASIC METABOLI C PANEL (fasting ) SODIUM [MOLES/VOL UME] IN SERUM OR PLASMA 142 mmol/L 135 - 145 09/11 Specimen Type: SERUM No comment entered. Ordering Provider: VIKI KAMARA Report Released Date/Time: Dec 20, 2023 10:39 AM Reporting Lab: [facility] [address] [address] Performing Lab: [facility] [address] [address] [place] BASIC METABOLI C PANEL (fasting ) POTASSIUM [MOLES/VOL UME] IN SERUM OR PLASMA 4.8 mmol/L 3.5 - 5.0 09/11 Specimen Type: SERUM No comment entered. Ordering Provider: VIKI KAMARA Report Released Date/Time: Dec 20, 2023 10:39 AM Reporting Lab: [facility] [address] [facility] [address] Performing Lab: [facility] [address] [facility] [address] [place] BASIC METABOLI C PANEL (fasting ) CHLORIDE [MOLES/VOL UME] IN SERUM OR PLASMA 105 mmol/L 100 - 110 09/11 Specimen Type: SERUM No comment entered. Ordering Provider: VIKI KAMARA Report Released Date/Time: Dec 20, 2023 10:39 AM Reporting Lab: [facility] [address] [address] Performing Lab: [facility] [address] [address] [place] BASIC METABOLI C PANEL (fasting ) CARBON DIOXIDE, TOTAL [MOLES/VOL UME] IN SERUM OR PLASMA 29 meq/L 20 - 30 09/11 Specimen Type: SERUM No comment entered. Ordering Provider: VIKI KAMARA Report Released Date/Time: Dec 20, 2023 10:39 AM Reporting Lab: [facility] [address] [address] Performing Lab: [facility] [address] [place] BASIC METABOLI C PANEL (fasting ) CREATININE [MASS/VOLU ME] IN SERUM OR PLASMA 1.14 mg/dL 0.50 - 1.40 09/11 Specimen Type: SERUM No comment entered. Ordering Provider: VIKI KAMARA Report Released Date/Time: Dec 20, 2023 10:39 AM Reporting Lab: [facility] [address] [facility] [address] Performing Lab: [facility] [address] [place] BASIC METABOLI C PANEL (fasting ) GLOMERULAR FILTRATION RATE/1.73 SQ M.PREDICTE D [VOLUME RATE/AREA] IN SERUM, PLASMA OR BLOOD BY CREATININE -BASED FORMULA (CKD-EPI 2020) 72 mL/min 60 09/11 Specimen Type: SERUM No comment entered. Ordering Provider: VIKI KAMARA Report Released Date/Time: Dec 20, 2023 10:39 AM Reporting Lab: [facility] [address] [facility] [address] Performing Lab: [address] [address] [facility]ITAL[facility] VITAMIN D (25-OH) 25-HYDROXY VITAMIN D3 [MASS/VOLU ME] IN SERUM OR PLASMA 45 ng/mL - 50 09/11 Specimen Type: SERUM No comment entered. Ordering Provider: VIKI KAMARA Report Released Date/Time: Dec 20, 2023 10:39 AM Reporting Lab: [address] [address] Performing Lab: [place] My Name[address] [address] [facility]ITAL[facility] Vital Signs Combined list of inpatient and outpatient Vital Signs from Department of Defense and Veterans Affairs, ranging from 12 months to all on record, depending upon the facility. Vital Sign Value Date Comments Source SYSTOLIC BLOOD PRESSURE 126 12/19/2024 09:40:04 [place] DIASTOLIC BLOOD PRESSURE 90 12/19/2024 09:40:04 [place] PULSE OXIMETRY 97 12/19/2024 09:40:04 S [place] PAIN 2 12/19/2024 09:40:04 [place] TEMPERATURE 98.3 12/19/2024 09:40:04 [place] PULSE 86 12/19/2024 09:40:04 [place] RESPIRATION 16 12/19/2024 09:40:04 [place] SYSTOLIC BLOOD PRESSURE 136 09/17/2024 09:38:26 [place] DIASTOLIC BLOOD PRESSURE 88 09/17/2024 09:38:26 [place] PULSE OXIMETRY 97 09/17/2024 09:38:26 [place] WEIGHT 243 09/17/2024 09:38:26 [place] BMI 31 kg/m2 09/17/2024 09:38:26 [place] TEMPERATURE 97 09/17/2024 09:38:26 [place] PULSE 64 09/17/2024 09:38:26 [place] RESPIRATION 18 09/17/2024 09:38:26 [place] Encounters Combined list of: 1) Encounters from Department of Veterans Affairs facilities going backup to the last 18 months, not all VA inpatient encounters are included; 2) Encounters from the Department of Defense facilities going backup to 280 months. Location Location Details Encounter Type Encounter Number Reason For Visit Attending Provider ADM Date DC Date Status Disposition Source Theater Facility OUTPATIENT [id number] Theater Provider 01/24 Released w/o Limitations [facility] OUTPATIENT [id number] Theater Provider 05/26 Released w/o Limitations [facility] OUTPATIENT [id number] Theater Provider 05/26 Released w/o [place] [address]([facility], [facility]) OUTPATIENT [id number] exercis e nutriti on KEMAL WHITFIELD 03/09 Released w/o Limitations [facility] [place] [address](N utritio ranjit Medicin e, [facility]) [place] [address](Arturo [facility] Fat[place],Re id) OUTPATIENT [id number] Notes Entered by: Yodit BRODY 15 Mar 2017 0955 ------- ------- ------- ------- -- Ankle Pain KERRIE BRODY 03/15 Released w/o Limitations [facility] [place] [address](Marilee L[place]id) [place] [address]([facility] [place],Re id) OUTPATIENT [id number] Notes Entered by: NIKOLAI RODRIGUEZ 16 Mar 2017 1305 ------- ------- ------- ------- -- Weight Loss NIKOLAI ROGERS 03/16 Released w/o Limitations [facility] [place] [address](B attlandry Avilez, Alonzo) [facility] [address]([facility] ash[place],Re id) OUTPATIENT [id number] Notes Entered by: Yodit BRODY 17 Mar 2017 1128 ------- ------- ------- ------- -- F/U L ankle and great toe KERRIE BRODY 03/17 Released w/o Limitations [facility] [place] [address](B attlefi michael Connellyman, Alonzo) [facility] [address]([facility],Re id) OUTPATIENT [id number] Notes Entered by: Yodit BRODY 22 Mar 2017 0914 ------- ------- ------- ------- -- F/U L lateral ankle KERRIE BRODY 03/22 Released w/o Limitations [facility] [place] [address](B attlerebecca Avilez, [place]) [facility] [address]([facility] Team G) TELE CONSULT [id number] Notes Entered by: MELISSA GUARDADO 06 Apr 2017 1408 ------- ------- ------- ------- -- No-Show [id number] DEION SHARMA 04/06 [facility] [place] [address](Dk cabrera [facility] Team G) [facility] [address]([facility] Team A) TELE CONSULT [id number] Notes Entered by: JE GARCIA 07 Apr 2017 1431 ------- ------- ------- ------- -- Walk in JE RONQUILLO 04/07 [facility] [place] [address](L [facility] Team A) [facility] [address]([facility] Team A) OUTPATIENT [id number] initial physica l w/ labs DEION SHARMA 04/08 [facility]itations [facility] [place] [address](L [facility] Team A) [facility] [address](Ort hotic Svcs, [facility]) OUTPATIENT [id number] Pain in left ankle and joints of left foot KENDYMELISSA FUNK Melina 04/13 [facility]ased w/o Limitations [facility] [place] [address](O rthotic Svcs, [facility]) [facility] [place] [place] [address](Dis ease Managemen t, [facility]) TELE CONSULT [id number] Notes Entered by: RACHEL HILLIARD 29 Apr 2017 0819 ------- ------- ------- ------- -- DISEASE MANAGEM ENT APPOINT JOSHUA Romo AND PREPARA TIRACHEL WEBSTER 04/29 [facility] [place] [address](Aury isease Managem ent, [facility]) [facility] [address]([facility] Team A) TELE CONSULT [id number] Notes Entered by: TIMOTEO HARRIS 29 Apr 2017 1317 ------- ------- ------- ------- -- PT REQ GASTRO CONSULT CALL [id number] JE BALLARD 04/29 [facility] [place] [address](L [facility] Team A) [facility] [address]([facility], [facility]) OUTPATIENT [id number] PreDM newly diagnos ed KEMAL WHITFIELD 05/02 [facility]ased w/o Limitations [facility] [place] [address](N utritio nal Medicin e, [facility]) [facility] [address](Dis ease Managemen t, [facility]) OUTPATIENT [id number] Prediab etes RACHEL HILLIARD 05/03 Released w/o Limitations [facility] [place] [address](D isease Managem ent, [facility]) [facility] [address](Dis ease Managemen t, [facility]) OUTPATIENT [id number] Notes Entered by: RACHEL HILLIARD 03 May 2017 1616 ------- ------- ------- ------- -- DISEASE MANAGEM ENT PREDIAB ETES CLASS PART B MANINDER ARGUETA 05/03 Released w/o Limitations [facility] [place] [address](D isease Managem ent, [facility]) [facility] [address](Beh avioral [facility]) OUTPATIENT [id number] pre diabete s group MCKENNA TIMMONS 05/04 Released w/o Limitations [facility] [place] [address](Oleksandr akhtar th [facility] Med [facility]) [facility] [address](Dis ease Managemen t, [facility]) TELE CONSULT [id number] Notes Entered by: RIAZ HOANG ACE 23 May 2017 1129 ------- ------- ------- ------- -- Disease Managem ent - Pending appoint JACKIE Singh 05/23 [facility] [place] [address](D isease Managem ent, [facility]) [facility] 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 [address](Dis ease Managemen t, [facility]) OUTPATIENT [id number] Notes Entered by: RACHEL HILLIARD Zachary 24 May 2017 1133 ------- ------- ------- ------- -- DISEASE MANAGEM ENT HEART HEALTH PART B RACHEL HILLIARD 05/24 Released w/o Limitations [facility] [place] [address](D isease Managem ent, [facility]) [facility] [address](Gas troentero logy, [facility]) OUTPATIENT [id number] Encount er for screeni ng for maligna nt neoplas m of colon CHRISTELLE PETERSON 05/27 Released w/o Limitations [facility] [place] [address](G astroen terolog y, [facility]) [facility] [place] [address]([facility],Re id) OUTPATIENT [id number] Notes Entered by: JOSY JOHNSON 08 Jun 2017 1023 ------- ------- ------- ------- -- LASHONDA Oconnell 06/08 Released w/o Limitations [facility] [place] [address](Oleksandr Avilez Alonzo) [facility] [place] [place] [address](Gas troentero logy, [facility]) TELE CONSULT [id number] Notes Entered by: Ame ROSS 09 Jun 2017 0916 ------- ------- ------- ------- -- Patholo GUANAKITO Velasquez 06/09 [facility] [place] [address](G astroen terolog y, [facility]) [facility] [place] [address]([facility],Re id) OUTPATIENT [id number] Notes Entered by: JOSE MADRIGAL 22 Sep 2017 1130 ------- ------- ------- ------- -- tight traps JOSE RG 09/22 Released w/o Limitations [place] [address](Oleksandr Avilez, [place]onzo) [facility] [address]([facility] _Team F) OUTPATIENT [id number] reserve on orders; labs and other issue KEVEN BRANDON 10/25 Released w/o Limitations [place] [address](L ackland _C_Te am F) [facility] [place] [address](Phy sical Therapy, ASC) OUTPATIENT [id number] LUIS Blackburn 10/28 Released w/o Limitations [facility] [address](P hysical Therapy , [facility]) [facility] [address]([facility] _Team F) TELE CONSULT [id number] KEVEN BRANDON 10/28 [facility] [place] [address](L ackland _C_Te am F) [facility] [address](BOM C,Alonzo) OUTPATIENT [id number] [facility]# [id number] YAIMA MARTINEZ 11/25 Released w/o Limitations [place] [address]([facility],Ozzy d) [facility] [address](Arturo [facility] hospitalMarilee Silveira id) OUTPATIENT [id number] Notes Entered by: CARLY TREVINO 10 Jan 2018 0756 ------- ------- ------- ------- -- right heel pain CARLY TREVINO 01/10 Released w/o Limitations [facility] [place] [address](Alonzo Landa) [facility] [place] [address]([facility] Team F) OUTPATIENT [id number] ROUTINE PHYSICA L [ PT ON ACTIVE DUTY ORDERS ] GABRIEL GONSALVES 03/10 Released w/o Limitations [facility] [place] [address]([facility] Team F) [facility] [address]([facility] Team F) TELE CONSULT [id number] Notes Entered by: STEWART MALLORY 10 May 2018 1605 ------- ------- ------- ------- -- Lab Request GABRIEL GONSALVES 05/10 [facility] [place] [address]([facility] Team F) [facility], [place] [address]([facility] Avilez,Re id) OUTPATIENT [id number] Notes Entered by: JAYCE LUU 11 May 2018 1447 ------- ------- ------- ------- -- pain in left shoulde r JAYCE LUU 05/11 Released w/o Limitations [facility] [place] [address](Oleksandr Avilez Alonzo) [facility] [place] [address]([facility] Team F) TELE CONSULT [id number] Notes Entered by: TUTU FRANZ 12 May 2018 1457 ------- ------- ------- ------- -- lab results TIFF QUINTANILLA 05/12 Referred for Appointment [facility] [place] [address]([facility] Team F) [facility], [place] [address] DIRECT TO DCF FROM OTHER THAN ER OR U [id number] NONI BELL 10/09 RETURNED TO DUTY [facility] [place] [address] [place] [address], [place] [address](Ar cam [facility] Team F) OUTPATIENT [id number] follow up from chest pain SULMA COHEN Carolynn 10/12 Released with Work/Duty Limitations [facility] [place] [address](Dk cabrera [facility] Team F) [facility] [place] [address](EKG Procedure , [facility]) OUTPATIENT [id number] SLADE WHITLOCK 10/16 Released w/o Limitations [facility] [place] [address](E KG Procedu re, [facility]) [facility] [place] [facility] [place] [address](Car diology, ASC) OUTPATIENT [id number] Notes Entered by: Talha WHITLOCK 18 Oct 2018 1012 ------- ------- ------- ------- -- ECHO REPORT EMELI ST 10/18 Released w/o Limitations [facility] [place] [address](Yodit delgadillo gy, [facility]) [facility] [address](EKG Procedure , [facility]) OUTPATIENT [id number] ABDELRAHMAN DOUGLAS 10/26 Released w/o Limitations [facility] [place] [address](E KG Procedu re, [facility]) [facility] [place] [address](Car diology, [facility]) OUTPATIENT [id number] Notes Entered by: WILDA HAGAN 30 Oct 2018 0955 ------- ------- ------- ------- -- Holter Monitor Report JACINTO RECINOS 10/30 Released w/o Limitations [facility] [place] [address](Yodit rodriguez, [facility]) [facility] [place] [facility] [place] [address]([facility] F03D [place]) OUTPATIENT [id number] ANKLE/ KNEE PAIN - PT HERE SAJI KHAN 12/06 Released w/o Limitations [facility] [place] [address](A MH F03D [place]) [facility] [place] [address]([facility] F03C [place]) OUTPATIENT [id number] Notes Entered by: JENNIFER SANTAMARIA 07 Dec 2018 1046 ------- ------- ------- ------- -- B knee pain JENNIFER SANTAMARIA 12/07 Released w/o Limitations [facility] [address](A MH F03C Cobra) [facility] [address]([facility] F03D [place]) OUTPATIENT [id number] VH lab results ARSALAN WHITE RAJAT 12/11 Released w/o Limitations [facility] [place] [address](A MH F03D [place]) [facility] [place] [address]([facility] F03C [place]) OUTPATIENT [id number] knee pain PROMISE, WOLFLUINANCY 12/12 Released w/o Limitations [facility] [place] [address](A MH F03C [place]) [facility] [place] [address]([facility] F03D [place]) OUTPATIENT [id number] VH - lab results KERI SAJI Deysi 12/12 Released w/o Limitations [facility] [place] [address](A MH F03D [place]) [facility] [place] [address]([facility] F03C [place]) OUTPATIENT [id number] knee PROMISE, WOLFUENANCY 12/14 Released w/o Limitations [facility] [place] [address](A MH F03C [place]) [facility] [address]([facility] F03C [place]) OUTPATIENT [id number] knee pain WOLF VIRGENLUINANCY 12/21 Released w/o Limitations [facility] [place] [address](A MH F03C [place]) [facility] [place] [address](KOFI Woodard) OUTPATIENT [id number] Chest pain on breathi JANEY Amin C 12/25 Released w/o Limitations [facility] [place] [address](Yodit rodriguez, [facility]) [facility] [place] [address]([facility] F03D [place]) OUTPATIENT [id number] tdy and is having knee and rotater cuff pain SEEMARK 03/13 Released w/o Limitations [facility] [place] [address](A MH F03D [place]) [facility] [address](Malachi du, [facility]) TELE CONSULT [id number] ELIA RAMOS 03/26 Referred for Appointment [facility] [place] [address](Yodit rodriguez, [facility]) [facility] [address](Phy sical Therapy [facility]) OUTPATIENT [id number] right shouold er pain and left knee and ankle pain BRETT VALDOVINOS 04/09 Released w/o Limitations [facility] [place] [address](P hysical Therapy [facility]) [address] [place] [address]([facility] Duty [facility]) OUTPATIENT [id number] General physica dk PARHAM MARII NOLEN 07/28 Released w/o Limitations [address] [place] [address](A ctive Duty Health [facility]) [address] [place] [address]([facility]) TELE CONSULT [id number] Notes Entered by: ANDRES KEY 06 Aug 2020 1413 ------- ------- ------- ------- -- Appt Line: Lab Results Request - PETRONA TUCKER 08/06 Other Not Elsewhere Classified [facility]) [address] [place] [address](Act [facility]) TELE CONSULT [id number] Notes Entered by: LAMONT PEARSON 13 Aug 2020 1442 ------- ------- ------- ------- -- lab inquiry FIDEL GRULLON CLOVER 08/13 Other Not Elsewhere Classified [address] [place] [address](A [facility]) [address] [place] [address](Act [facility]) OUTPATIENT [id number] Left forearm /ankle pain/du e to injury/ neg erlin / JESSICA NICHOLS 09/05 Released w/o Limitations [address] [place] [address](A ctive Duty [facility]) [address] [place] [address](Act [facility]) TELE CONSULT [id number] Notes Entered by: JESSICA NICHOLS 17 Sep 2020 1643 ------- ------- ------- ------- -- ED JESSICA NICHOLS 09/[address] [place] [address](A ctive Duty [facility]) [facility] [place] [facility] Outpatient Encounter [id number] 07/07 [facility] [place] [facility] PSYCHOTHER APY [id number] Diagnos is: ICD-10- CM F43.12 Post-tr aumatic stress disorde r, chronic SARAH THORPE 07/11 [facility] PSYCHOTHER APY [id number] Diagnos is: ICD-10- CM F43.10 Post-tr aumatic stress disorde r, unspeci fied SARAH THORPE 07/18 [facility] [place] [facility] Outpatient Encounter [id number] 07/20 [facility] [place] [facility] Outpatient Encounter [id number] 07/21 [facility] PSYTX W PT 30 MINUTES [id number] [id number] Diagnos is: ICD-10- CM F43.12 Post-tr aumatic stress disorde r, chronic BARBIE MURPHY 08/04 [facility] PSYCHOTHER APY [id number] Diagnos is: ICD-10- CM F43.10 Post-tr aumatic stress disorde r, unspeci ayush THORPESARAHIE 08/08 [facility] Encounter [id number] 08/11 [facility] [place] Outpatient Encounter [id number] 08/23 [facility] [place] [facility] OFFICE O/P EST MOD 30 MIN [id number] Diagnos is: ICD-10- CM F43.12 Post-tr aumatic stress disorde r, chronic ST MARCUS CASTELLANOS 09/12 [facility] PSYCH[facility] APY [id number] Diagnos is: ICD-10- CM F43.12 Post-tr aumatic stress disorde r, chronic MAURILIOSARAH AZAR 09/12 [facility] W PT 30 MINUTES [id number] Diagnos is: ICD-10- CM F43.12 Post-tr aumatic stress disorde r, chronic BARBIE MURPHY 09/15 [facility] PSYCHOTHER APY [id number] Diagnos is: ICD-10- CM F43.10 Post-tr aumatic stress disorde r, unspeci ayush SARAH THORPE 10/03 [facility] PSYCH[facility] APY [id number] Diagnos is: ICD-10- CM F43.10 Post-tr aumatic stress disorde r, unspeci ayush SARAH THORPE 10/17 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 SASHA CLARKE 10/25 [facility] FIT SPECTACLES MONOFOCAL [id number] Diagnos is: ICD-10- CM Z46.0 Encount er for fit/adj st of spectac les and contact lenses SASHA CLARKE 10/25 [facility] [place] [place] PSYTX W PT 30 MINUTES [id number] Diagnos is: ICD-10- CM F43.12 Post-tr aumatic stress disorde r, chronic BARBIE MURPHY G 10/26 [place] [facility] Outpatient Encounter [id number] 10/30 [facility] [place] [place] OFF/OP EST DECEMBER X REQ PHY/QHP [id number] [id number] Diagnos is: ICD-10- CM R07.9 Chest pain, unspeci fied BHAVNA,ER IC K 11/13 [place] [facility] Outpatient Encounter [id number] 11/13 [facility] [place] [facility] ELECTROCAR DIOGRAM REPORT [id number] Diagnos is: ICD-10- CM Z13.6 Encount er for screeni ng for cardiov ascular disorde rs JOHN BARRIENTOS 11/13 [place] [facility] [place] Outpatient Encounter [id number] 11/13 [facility] [place] [facility] [place] [facility] Outpatient Encounter [id number] 11/13 [facility] [place] PSYCHOTHER APY [id number] Diagnos is: ICD-10- CM F43.10 Post-tr aumatic stress disorde r, unspeci SARAH Lawrence NISSA 11/13 [facility] MINUTES [id number] [id number] Diagnos is: ICD-10- CM F43.12 Post-tr aumatic stress disorde r, chronic BARBIE MURPHY G 11/23 [facility] [place] [facility] Outpatient Encounter [id number] 11/24 [facility] [place] [facility] [facility] TTE W/DOPPLER COMPLETE [id number] [id number] Diagnos is: ICD-10- CM R00.2 Palpita JAMES Aj 11/24 [facility] [place] OFFICE O/P EST LOW 20 MIN [id number] [id number] Diagnos is: ICD-10- CM I11.9 Hyperte nsive heart disease without heart failure BENY ADLER 11/24 [facility] PSYCHOTHER APY [id number] [id number] Diagnos is: ICD-10- CM F43.10 Post-tr aumatic stress disorde r, unspeci SARAH Lawrence NISSA 11/27 [facility] O[facility]P EST MOD 30 MIN [id number] [id number] Diagnos is: ICD-10- CM F43.12 Post-tr aumatic stress disorde r, chronic ST MARCUS CASTELLANOS G 11/30 [facility] [place] [id number] Diagnos is: ICD-10- CM F43.10 Post-tr aumatic stress disorde r, unspeci fiSARAH Maher NISSA 12/04 [facility] Outpatient Encounter [id number] 12/19 [facility] [place] [facility] OFFICE O/P EST MOD 30 MIN [id number] [id number] Diagnos is: ICD-10- CM E78.00 Pure hyperch olester olemia, unspeci fied MICHEAL KAMARA N 12/19 [facility] PS[facility] W PT 30 MINUTES [id number] [id number] Diagnos is: ICD-10- CM F43.12 Post-tr aumatic stress disorde r, chronic BARBIE MURPHY 12/21 [facility] PSYCH[facility]Y [id number] [id number] Diagnos is: ICD-10- CM F43.10 Post-tr aumatic stress disorde r, unspeci SARAH Lawrence NISSA 12[facility]25 [facility] Outpatient Encounter [id number] 12/27 [facility] UNLISTED SPEC DERM SVC/PX [id number] [id number] Diagnos is: ICD-10- CM Z13.89 Encount er for screeni ng for other disorde r Francisco BATEMAN 01/08 [facility] PS[facility]CHOTHER [place] [id number] [id number] Diagnos is: ICD-10- CM F43.12 Post-tr aumatic stress disorde r, chronic SARAH THORPE NISSA 01/08 [facility] MANCHESGLADYS R [facility] OFFICE O/P EST SF 10 MIN [id number] Diagnos is: ICD-10- CM L73.8 Other specifi ed follicu lar disorde rs GEORGES FLOREZ PH J 01/09 [facility] Outpatient Encounter [id number] 01/09 [facility] [place] Outpatient Encounter [id number] 01/09 [facility] PSYCH[facility] APY [id number] Diagnos is: ICD-10- CM F43.12 Post-tr aumatic stress disorde r, chronic SARAH THORPE NISSA 01/22 [place] Outpatient Encounter [id number] 01/22 [facility] [facility] [place] [facility] PSYTX W PT 45 MINUTES [id number] Diagnos is: ICD-10- CM F43.12 Post-tr aumatic stress disorde r, chronic BARBIE MURPHY 01/25 [place] [facility] [place] [facility] Outpatient Encounter [id number] BARBIE MURPHY 01/25 [facility] [place] [facility] GROUP PSYCHOTHER APY [id number] Diagnos is: ICD-10- CM F43.12 Post-tr aumatic stress disorde r, chronic SARAH THORPE NISSA 02/05 [place] [facility] GROUP PSYCHOTHER APY [id number] Diagnos is: ICD-10- CM F43.12 Post-tr aumatic stress disorde r, chronic SARAH THORPE NISSA 02/26 [place] [facility] [place] [facility] Outpatient Encounter [id number] 02/26 [facility] [place] [facility] En[facility] [id number] 02/27 [facility] [place] PSYTX W PT 30 MINUTES [id number] Diagnos is: ICD-10- CM F43.12 Post-tr aumatic stress disorde r, chronic BARBIE MURPHY 03/01 [facility] OFFICE O/P EST MOD 30 MIN [id number] Diagnos is: ICD-10- CM F43.10 Post-tr aumatic stress disorde r, unspeci ST CHELLE BellamyELIJAH Wen 03/05 [facility] GROUP PSYCHOTHER APY [id number] Diagnos is: ICD-10- CM F43.12 Post-tr aumatic stress disorde r, chronic SARAH THORPE 03/05 [facility] RPR&REFITG SPECT XCP APHAKIA [id number] Diagnos is: ICD-10- CM Z46.0 Encount er for fit/adj st of spectac les and contact lenses PALOMA PRADO 03/30 [facility] PSY[facility]OTHER APY [id number] 1BY. 65 Diagnos is: ICD-10- CM F43.10 Post-tr aumatic stress disorde r, unspeci fiSARAH Maher 04[facility] [id number] Diagnos is: ICD-10- CM F43.12 Post-tr aumatic stress disorde r, chronic BARBIE MURPHY 04/05 [facility] GROUP PSYCHOTHER APY [id number] [id number] Diagnos is: ICD-10- CM F43.12 Post-tr aumatic stress disorde r, chronic SARAH THORPE NISSA 04/16 [facility] [place] [place] [facility] PSYCHOTHER APY [id number] Diagnos is: ICD-10- CM F43.10 Post-tr aumatic stress disorde r, unspeci SARAH Lawrence NISSA 05/14 [facility]ES [id number] Diagnos is: ICD-10- CM F43.12 Post-tr aumatic stress disorde r, chronic BARBIE MURPHY G 05/31 [facility] Encounter [id number] Diagnos is: ICD-10- CM F43.12 Post-tr aumatic stress disorde r, chronic ST MARCUS CASTELLANOS G 06/07 [facility] [place] [facility] PSYCHOTHER APY [id number] 1BY. 10 Diagnos is: ICD-10- CM F43.10 Post-tr aumatic stress disorde r, unspeci SARAH Lawrence NISSA 06/11 [facility] [id number] Diagnos is: ICD-10- CM F43.12 Post-tr aumatic stress disorde r, chronic SARAH THORPE NISSA 06/25 [facility] [id number] 07/09 [facility] [id number] [id number] Diagnos is: ICD-10- CM F43.10 Post-tr aumatic stress disorde r, unspeci SARAH Lawrence NISSA 07/09 [facility]Y [id number] [id number] Diagnos is: ICD-10- CM F43.10 Post-tr aumatic stress disorde r, unspeci SARAH Lawrence NISSA 07/16 [facility]P EST MOD 30 MIN [id number] [id number] Diagnos is: ICD-10- CM F43.10 Post-tr aumatic stress disorde r, unspeci fied ST MARCUS CASTELLANOS G 07/26 [facility] W PT 30 MINUTES [id number] Diagnos is: ICD-10- CM F43.12 Post-tr aumatic stress disorde r, chronic BARBIE MURPHY G 07/26 [facility] [place] [facility] PSYCHOTHER APY [id number] Diagnos is: ICD-10- CM F43.10 Post-tr aumatic stress disorde r, unspeci fiariel THORPESARAH NISSA 07/30 [facility] En[facility] [id number] 08/31 [facility] [place] [facility] [place] [facility] En[facility] [id number] 08/31 [facility] [place] OFFICE O/P EST MOD 30 MIN [id number] Diagnos is: ICD-10- CM E78.00 Pure hyperch olester olemia, unspeci MICHEAL Chow N 09/17 [facility] [id number] [id number] Diagnos is: ICD-10- CM F43.12 Post-tr aumatic stress disorde r, chronic THORPESARAH NISSA 09/17 [facility] [place] [facility] APY [id number] [id number] Diagnos is: ICD-10- CM F43.12 Post-tr aumatic stress disorde r, chronic THORPESARAH NISSA 09/24 [facility] W PT 45 MINUTES [id number] Diagnos is: ICD-10- CM F43.12 Post-tr aumatic stress disorde r, chronic BARBIE MURPHY G 09/27 [facility] PSYCHOTHER APY [id number] [id number] Diagnos is: ICD-10- CM F43.12 Post-tr aumatic stress disorde r, chronic SARAH THORPE 10/15 [facility] PSYCHOTHER APY [id number] [id number] Diagnos is: ICD-10- CM F43.12 Post-tr aumatic stress disorde r, chronic SARAH THORPE 10/22 [facility] [place] [id number] Diagnos is: ICD-10- CM H04.123 Dry eye syndrom e of bilater al lacrima l glands BORASKI,AN CIERA E 10/29 [facility] [place] [facility] LD OFFICE O/P EST MOD 30 MIN [id number] [id number] Diagnos is: ICD-10- CM F43.12 Post-tr aumatic stress disorde r, chronic ST MARCUS CASTELLANOS G 11/05 [facility] [id number] [id number] Diagnos is: ICD-10- CM F43.12 Post-tr aumatic stress disorde r, chronic SARAH THORPE 11/19 [facility] LD PSYTX W PT 30 MINUTES [id number] [id number] Diagnos is: ICD-10- CM F43.12 Post-tr aumatic stress disorde r, chronic BARBIE MURPHY G 11/29 [facility] PSYCHOTHER APY [id number] [id number] Diagnos is: ICD-10- CM F43.12 Post-tr aumatic stress disorde r, chronic SARAH THORPE 12/17 [facility] OFF/OP EST DECEMBER X REQ PHY/QHP [id number] [id number] Diagnos is: ICD-10- CM H66.91 Otitis media, unspeci fied, right ear BHAVNA,ER IC K 12/19 [facility] [place] Outpatient Encounter [id number] 12/19 [facility] [place] [facility] [facility] LD GROUP PSYCHOTHER APY [id number] [id number] Diagnos is: ICD-10- CM F43.12 Post-tr aumatic stress disorde r, chronic THORPE,SARAH NISSA 12/31 [facility] IE Procedures Combined list of: 1) Procedures from Department of Veterans Affairs facilities going back up to thelast 18 months, not all VA non-surgical procedures are included; 2) All procedures from the Department of Defense facilities. Procedure Procedure Type Code Date Perfomer Comments Sourc e WAIVER SERVICES; NOT OTHERWISE SPECIFIED (NOS) 09/05/19 [facility] Physical Therapy: ___ Se ion Segments, 15 Minutes Each Physical Therapy: ___ Session Segments, 15 Minutes Each 11013 04/09/20 BRETT VALDOVINOS [facility] Physical Therapy Mobilization Joint Physical Therapy Mobilization Joint [id number] 12/22/19 FRENCH VIRGEN [facility] Physical Therapy: ___ Se ion Segments, 15 Minutes Each Physical Therapy: ___ Session Segments, 15 Minutes Each [id number] 12/22/19 FRENCH VIRGEN [facility] Physical Therapy Mobilization Joint Physical Therapy Mobilization Joint [id number] 12/15/19 FRENCH VIRGEN [facility] Physical Therapy: ___ Se ion Segments, 15 Minutes Each Physical Therapy: ___ Session Segments, 15 Minutes Each 48096 12/15/19 FRENCH VIRGEN [facility] Physical Therapy: ___ Se ion Segments, 15 Minutes Each Physical Therapy: ___ Session Segments, 15 Minutes Each [id number] 12/13/19 FRENCH VIRGEN [facility] Physical Therapy Mobilization Joint Physical Therapy Mobilization Joint [id number] 12/13/19 19 WOLF VIRGENNANCY [facility] Physical Therapy Mobilization Joint Physical Therapy Mobilization Joint [id number] 12/08/19 19 JENNIFER SANTAMARIA [facility] Holter Monitor 48-Hour With Physician Review And Interpretation Holter Monitor 48-Hour With Physician Review And Interpretation [id number] 10/31/19 19 VEE WARREN [facility] Holter Monitor 48-Hour With Recording Holter Monitor 48-Hour With Recording [id number] 10/27/19 19 ABDELRAHMAN DOUGLAS [facility] Exercises A isted Exercises For ROM Exercises Assisted Exercises For ROM 80115 05/11/20 18 JAYCE LUU [facility] Mobilization Soft Ti ue Mobilization Soft Tissue 17932 05/11/20 18 JAYCE LUU [facility] Physical or manipulative therapy performed for maintenance rather than anabaptism 05/11/20 18 JAYCE LUU [facility] Counseling and discu ion regarding advance directives or end of life care planning and decisions, with patient and/or surrogate (list separately in addition to code for appropriate evaluation and management service) 03/13/20 18 GABRIEL GONSALVES [facility] Modalities Cryotherapy Cold Packs Modalities Cryotherapy Cold Packs 76827 01/11/20 18 CARLY TREVINO [facility] Taping Ankle Taping Ankle 90014 01/11/20 18 CARLY TREVINO [facility] Physical Therapy Gait Training Physical Therapy Gait Training 37083 01/11/20 18 CARLY TREVINO [facility] Internet Med Svc Qual Nonphys Healthcare Prof Estab Patient Internet Med Svc Qual Nonphys Healthcare Prof Estab Patient 25103 11/26/19 18 YAIMA LOMELI [facility] Mobilization Soft Ti ue Mobilization Soft Tissue 25258 11/01/19 18 LUIS VAIL [facility] Physical Therapy Mobilization Joint Physical Therapy Mobilization Joint 93993 11/01/19 18 [place] [facility] Internet Med Svc Qual Nonphys Healthcare Prof Estab Patient Internet Med Svc Qual Nonphys Healthcare Prof Estab Patient 35907 10/29/19 18 KEVEN BRANDON [facility] Physical or manipulative therapy performed for maintenance rather than anabaptism 06/13/20 17 LASHONDA JOHNSON [facility] Physical Therapy: ___ Se ion Segments, 15 Minutes Each Physical Therapy: ___ Session Segments, 15 Minutes Each [id number] 06/13/20 17 LASHONDA JOHNSON [facility] Patient Counseling Medical Management Two To Four Patients Patient Counseling Medical Management Two To Four Patients 77964 05/24/20 17 JACKIE MONTENEGRO [facility] Disease management program, follow-up/heike e ment 05/24/20 17 JACKIE MONTENEGRO Dk [facility] Disease management program; initial a e ment and initiation of the program 05/24/20 17 ARMINDA, RACHEL [facility] Non-Physician Phone Call To Patient/Provider Brief (5-10min) Non-Physician Phone Call To Patient/Provider Brief (5-10min) 01711 05/23/20 17 JACKIE MONTENEGRO [facility] Telephone calls by a registered nurse to a disease management program member for monitoring purposes; per month 05/23/20 17 JACKIE MONTENEGRO [facility] Patient Counseling Medical Management Five To Eight Patients Patient Counseling Medical Management Five To Eight Patients 74040 05/09/20 17 MANINDER ARGUETA [facility] Disease management program; initial a e ment and initiation of the program 05/09/20 17 MANINDER ARGUETA [facility] Health And Behav Intervention, Each 15 Min Grp (2 Or More) Health And Behav Intervention, Each 15 Min Grp (2 Or More) 59924 05/04/20 17 MCKENNA TIMMONS [facility] Patient Counseling Medical Management Five To Eight Patients Patient Counseling Medical Management Five To Eight Patients 37197 05/04/20 17 ARMINDA RACHEL U [facility] Disease management program; initial a e ment and initiation of the program 05/04/20 17 ARMINDA RACHEL [facility] Medical Nutrition Therapy Re-a e ment, Intervention Medical Nutrition Therapy Re-assessment, Intervention 10106 05/02/20 17 KEMAL WHITFIELD [facility] Non-Physician Phone Call To Patient/Provider Brief (5-10min) Non-Physician Phone Call To Patient/Provider Brief (5-10min) 87289 04/29/20 17 ARMINDA, RACHEL U [facility] Telephone calls by a registered nurse to a disease management program member for monitoring purposes; per month 04/29/20 17 ARMINDARACHEL VALDEZ [facility] Ankle orthosis, ankle gauntlet or similar, with or without joints, prefabricated, [id number] 04/13/20 MELISSA LEUNG Knee orthosis, elastic with joints, prefabricated item that has been trimmed, bent, molded, a embled, or otherwise customized to fit a specific patient by an individual with expertise 04/13/20 MELISSA LEUNG [employer] Orthotics Training Additional 15 Minutes 04/13/20 17 MELISSA LARRY [facility] Non-Physician Phone Call To Patient/Provider Brief (5-10min) Non-Physician Phone Call To Patient/Provider Brief (5-10min) 46827 04/11/20 17 MELISSA GUARDADO [facility] Physical Therapy [facility] Physical Therapy Massage 06464 03/22/20 17 KERRIE BRODY [facility] Taping Knee Taping Knee 61102 03/22/20 17 KERRIE BRODY [facility] Medical Nutrition Therapy Initial A e ment, Intervention Medical Nutrition Therapy Initial Assessment, Intervention 29292 03/17/20 17 NIKOLAI ROGERS [facility] Phys Therapy Education Self Care Training - Per 15 Minutes Phys Therapy Education Self Care Training - Per 15 Minutes 70775 03/17/20 17 KERRIE BRODY [facility] Taping Knee Taping Knee 88729 03/17/20 17 KERRIE BRODY [facility] Phys Therapy Education Self Care Training - Per 15 Minutes Phys Therapy Education Self Care Training - Per 15 Minutes 66146 03/15/20 17 KERRIE BRODY [facility] Physical Therapy [facility] Physical Therapy Massage 92893 03/15/20 17 KERRIE BRODY [facility] Taping Knee Taping Knee 32521 03/15/20 17 KERRIE BRODY [facility] Medical Nutrition Therapy Initial A e ment, Intervention Medical Nutrition Therapy Initial Assessment, Intervention 10459 03/09/20 17 KEMAL WHITFIELD [facility] Brief communication technology-based service, e.g. virtual check-in, by a physician or other qualified health care profe joseluis who can report evaluation and management services, provided to an established patient, not originating from a related E/M service provided within the previous 7 days nor leading to an E/M service or procedure within the next 24 hours or soonest available appointment; 5-10 minutes of medical discu ion JESSICA NICHOLS [facility] Waiver services; not otherwise specified (NOS) JESSICA NICHOLS [facility] No data available for this section Ambulato ry Pharmacy Social History Combined list of available smoking, tobacco, and other social history from Department of Defense and Veterans Affairs facilities. Social History Type Response Date Comment [facility] e Tobacco smoking status NHIS VA-TOBACCO NEVER USED 11/24/2023 [facility] D History of tobacco use VA-TOBACCO NEVER USED 10/15/2022 [facility] D History of tobacco use VA-TOBACCO NEVER USED 11/02/2021 [facility] D History of tobacco use CT-TOBACCO NEVER USED 10/27/2020 [facility] D History of tobacco use CT-TOBACCO NEVER USED 10/17/2020 [facility] D History of tobacco use LIFETIME NON-TOBACCO USER 07/27/2017 [facility] History of tobacco use LIFETIME NON-TOBACCO USER 09/17/2015 [facility] History of tobacco use LIFETIME NON-SMOKER 03/11/2005 [facility] SILVANO PETIT [facility] This section is an empty social history section. DoD Assessment and Plan Combined list of future care activities from Department of Defense and Veterans Affairs facilities (e.g., assessment and plan notes, appointments, orders, and referrals). Additional future care activities may be listed in the Plan of Care section. Result Assessment and Plan Date Source Assessment and Plan No data available for this section 01/02/2025 Ambulatory Pharmacy Plan of Care List of future care activities from Department of Veterans Affairs facilities. Additional future care activities may be listed in the Assessment and Plan section. Date/Time Care Activity Care Activity Detail Facili ty 01/23/2025 AMBULATORY - PSYCHIATRY AMBULATORY - PSYC HIATRY [facility] Functional Status Combined list of recent functional and cognitive assessments recorded at Department of Defense and Veterans Affairs (CT).VA Functional [place] Measurement (FIM) Scale: 1 = Total Assistance (Subject = 0% +), 2 = Maximal Assistance (Subject = 25% +), 3 = Moderate Assistance (Subject = 50% +), 4 = Minimal Assistance (Subject = 75% +), 5 = Supervision, 6 = Modified [place] (Device), 7 = Complete [place] (Timely, Safely). Assessment Date/Time Source Assessment Type Assessment Skill Assessment Score Assessment Details No data available for this section
--- OUTSIDE RECORDS SUMMARY | 2025-01-02 10:12 | XMS_ITS | Encounter Summary ---
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 Name Role Phone VIKI KAMARA Primary Care [...] Patient's Relationship to Policy Law MEDICAID MEDICAID [place]ODI [place] A[place] Aug 22, 2015 MEDICAI D [id number] CARLOS ENRIQUE FLORES PATIENT [facility] PRESCRIPT ION RX Aug 22, 2022 THPRX [id number] [phone] CARLOS ENRIQUE FLORES PATIENT [facility] PRESCRIPT ION RX Aug 22, 2022 THPRX [id number] CARLOS ENRIQUE FLORES PATIENT [facility] PRESCRIPT ION RX Aug 22, 2022 THPRX [id number] CARLOS ENRIQUE FLORES PATIENT [facility] PRESCRIPT ION RX Aug 22, 2022 THPRX [id number] CARLOS ENRIQUE FLORES PATIENT [facility] 2018 DIREC T CARE NON-B ILL Jun 28, 2021 [id number] CARLOS ENRIQUE FLORES PATIENT [facility] 2017 DIREC T CARE ADSM Nov 27, 2020 [id number] [phone] CARLOS ENRIQUE FLORES PATIENT [email or web address]P - BRMIKAYLA TON MAR 2022 [id number] [phone] CARLOS ENRIQUE FLORES PATIENT [facility] PLAN BRIGH TON CABA E 2022 [id number] CARLOS ENRIQUE FLORES PATIENT [facility] [[email or web address]P -BRIG HTON CABA 2022 [id number] CARLOS ENRIQUE FLORES PATIENT Selected Encounter This section includes the information on record at [place] for the Encounter. Date/Time Encounter Type Encounter Description Reason Provider Source Oct 29, 2024 10:00 AM COMPRE OPH EXAM EST PT 1/> OPTOMETRY ICD-10-CM H04.123 Dry eye syndrome of bilateral lacrimal glands JAYCE CLARKE [facility] Encounter Template Text not used by [place] Assessments - Encounter Diagnoses This section includes the primary and secondary diagnoses documented for the Encounter. Date/Time Primary/Secondary Diagnosis Diagnosis Name Provider Source Oct 29, 2024 10:10 AM PRIMARY Dry eye syndrome of bilateral lacrimal glands JAYCE CLARKE [facility] Oct 29, 2024 10:10 AM SECONDARY Endothelial corneal dystrophy, bilateral JAYCE CLARKE [facility] Oct 29, 2024 10:10 AM SECONDARY Presence of intraocular lens JAYCE CLARKE [facility] Plan of Treatment: Future Appointments (+ 6 months) and Future Tests (+/- 45 days) The Plan of Treatment section includes future care activities for the patient from all [place] treatmentfacilities. This section includes future appointments and future orders which are active, pending or scheduled. Future Appointments This section includes appointments that were scheduled to occur 6 months from the date of the Encounter, up to a maximum of 20 appointments. The data comes from all [place] treatment facilities. Appointment Date/Time Appointment Type Appointme nt Facility Name Nov 05, 2024 09:30 AM AMBULATORY - PSYCHIATRY [facility] Nov 19, 2024 01:00 PM AMBULATORY - PSY[facility]IATRY [facility] Nov 29, 2024 10:00 AM AMBULATORY - PSY[facility]IATRY [facility] Dec 17, 2024 01:00 PM AMBULATORY - PSYCHIATRY [facility] Dec 19, 2024 08:45 AM AMBULATORY - MEDICINE [facility] December 31, 2024 01:00 PM AMBULATORY - PSYCHIATRY [facility] Jan 23, 2025 10:00 AM AMBULATORY - PSY[facility]IATRY [facility] Mar 04, 2025 09:30 AM AMBULATORY - PSYCHIATRY [facility] Apr 15, 2025 09:00 AM AMBULATORY - MEDICINE [facility] Active, Pending, and Scheduled Orders This section includes a listing of several types of active, pending, and scheduled orders, including clinic medications orders, diagnostic test orders, procedure orders and consult orders; where the start date of the order is 45 days before the date of the Encounter or 45 days after the date of theEncounter. The data comes from all [place] treatment facilities. Test Date/Time Test Type Test Details Facility Name Oct 29, 2024 03:08 PM Consult Order [facility] Cons [employer] [facility] Social History: Smoking Status (Most current) and Tobacco Use (All prior to encounter date) This section includes the most current, and the historical, smoking and tobacco- related health factors from the [place] facility where the Encounter took place. Current Smoking Status This section includes the most current smoking, or tobacco-related health factor, from the [place] facility where the Encounter took place. Date/Time Current Smoking Status Comment Facil ity Mar 11, 2005 09:14 AM LIFETIME NON-TOBACCO USER [facility] Tobacco Use History This section includes a history of the smoking, or tobacco-related health factors, that were collected on or before the date of the Encounter. The data comes from the [place] facility where the Encounter took place. Date/Time Smoking Status/Tobacco Use Comment F acemilie Mar 11, 2005 09:14 AM LIFETIME NON-TOBACCO USER [facility] Encounter Notes: All associated encounter notes This section contains the clinical notes associated to the Encounter. Date/Time Encounter Note(s) Provider Source Oct 29, 2024 10:07 AM OPTOMETRY NOTE: LOCAL TITLE: OPTOMETRY NOTE(T) STANDARD TITLE: OPTOMETRY NOTE DATE OF NOTE: OCT 29, 2024@10:07 ENTRY DATE: OCT 29, 2024@10:07:07 AUTHOR: JAYCE CLARKE EXP COSIGNER: URGENCY: STATUS: COMPLETED OPTOMETRY NOTE(T) Has ADDENDA I saw this patient in conjunction with the student and agree to the stated findings and plan after reviewing both history and repeating honeycutt elements of physical exam. Patient presents for annual comprehensive exam well-known to me with history of pseudophakia OU, mild corneal guttata and retinal scar along the arcades OS appears stable from prior notes. Otherwise no other acute ocular disease was seen. Patient is content with current reading glasses. The patient will return in 12 months or sooner if any problems arise, including dilated fundus exam. /es/ JAYCE CLARKE OD STAFF REFRIGERATOR GLAZIER Signed: 10/29/2024 10:10 10/29/2024 ADDENDUM STATUS: COMPLETED Patient also uses artificial tears for dry eyes. /es/ JAYCE CLARKE OD STAFF REFRIGERATOR GLAZIER Signed: 10/29/2024 10:11 JAYCE CLARKE [facility] Oct 29, 2024 07:28 AM OPTOMETRY NOTE: LOCAL TITLE: OPTOMETRY NOTE STANDARD TITLE: OPTOMETRY NOTE DATE OF NOTE: OCT 29, 2024@07:28 ENTRY DATE: OCT 29, 2024@07:29:06 AUTHOR: RAUL PAGE EXP COSIGNER: JAYCE CLARKE URGENCY: STATUS: COMPLETED Active problems - Computerized Problem List is the source for the followin. Leukopenia 2. Posttraumatic stress disorder 3. Pain of left ankle joint 4. Ambulatory ECG normal 5. Chronic Post-Traumatic Stress Disorder (SCT 094747990) 6. Depression (SCT [id number]) 7. Sleep apnea 8. Exposure to potentially hazardous chemical 9. lymphectomy 10. History of appendectomy 11. Lateral epicondylitis 12. Recurrent brief depressive disorder 13. Screening for malignant neoplasm of colon done 14. medical providers outside [facility] 15. Impotence of organic origin 16. Pain of left knee region 17. Rt Rib Pain 18. Hypercholesterolemia (SNOMED CT [id number]) Active Outpatient Medications (including Supplies): Active Outpatient Medications Status = 1) ATORVASTATIN CALCIUM 40MG TAB TAKE ONE-HALF TABLET BY MOUTH ACTIVE ONCE DAILY FOR CHOLESTEROL Indication: FOR HIGH CHOLESTEROL 2) CARBOXYMETHYLCELLULOSE NA 0.5% OPH SOLN INSTILL 1 DROP INTO ACTIVE EACH EYE FOUR TIMES DAILY NEEDED Indication: FOR DRY EYE 3) CLINDAMYCIN PHOSPHATE 1% TOP SOLN APPLY THIN LAYER TOPICALLY ACTIVE ONCE DAILY NEEDED Indication: FOR ACNE 4) DULOXETINE HCL 60MG EC CAP TAKE TWO CAPSULES BY MOUTH ONCE ACTIVE DAILY Indication: MOOD/PTSD 5) LORATADINE 10MG TAB TAKE ONE TABLET BY MOUTH ONCE DAILY ACTIVE Indication: FOR ALLERGY 6) TRAZODONE HCL 50MG TAB TAKE ONE AND ONE-HALF TABLETS BY ACTIVE MOUTH AT BEDTIME NEEDED INSOMNIA Indication: FOR INSOMNIA ASSOCIATED WITH DEPRESSION 7) TRIAMCINOLONE ACETONIDE 0.1% CREAM APPLY A THIN LAYER ACTIVE TOPICALLY TWICE DAILY NEEDED Indication: FOR ITCHING Allergies: Patient has answered NKA All medications including those prescribed by outside VA's, community providers, and all OTC meds were reviewed and reconciled with patient to the best of their abilities. This 64 year old MALE is seen today for annual CEE SALLY: 10/26/23 Chief Complaint: Denied any vision or ocular health concerns OHx: 1. Retinal scar with RPE hyperplasa OS - Suspect previous choroidal/vasculitis vs post traumatic - Possible remote hx of trauma with ball OS when much younger per pt - Evaluated with [facility] who confirmed quiet scarring without evidence of activity - Stable 2. Pseudophakia OU 3. Presbyopia OU Ocular Medications: Refresh BID OU (-) Pain: (-) ANN: (-) Diplopia: (-) Flashes: (-) Floaters: (-) Amaurosis Fugax/Tia's: (-) Eye Injury: (+) Eye Surgery: CE w/ PCIOL OU about [address] Deshpande (-) TBI FOHx: (-) Glaucoma/ARMD/Blindness VITALS (most recent, as listed in the electronic record): B/P: 136/88 (09/17/2024 09:38) Pulse: 64 (09/17/2024 09:38) Temperature: 97 F [36.1 C] (09/17/2024 09:38) Weight: 243 lb [110.22 kg] (09/17/2024 09:38) Height: 74 in [188.0 cm] (04/20/2023 10:38) BMI: BMI: 31.3 PERTINENT LABS: HEMOGLOBIN A1C TREND Collection DT Spec HGBA1c 09/11/2024 08:43 BLOOD 5.6 04/14/2023 07:31 BLOOD 5.7 H 11/25/2020 09:07 BLOOD 5.5 07/27/2017 10:57 BLOOD 5.8 H 12/13/2016 12:49 BLOOD 5.9 H (-) Smoker/Length of Time/PPD: Current Rx with last BCVA: OD: [place]-0.25 x165 20/20 OS: -0.25-0.25 x015 20/20 Add:+2.00 DVA ( )sc ( x )cc - phoropter OD: 20/20 OS: 20/20 Pupils: PERRL (-)APD EOMs: SAFE OU, (-)Pain/Diplopia CVF (facial, peripheral): FTFC OU Subjective Refraction: no change All the above performed by student, reviewed by attending Anterior segment: Performed by student, repeated by attending Lids: trc blepharitis and MGD OU Conj: white and quiet OU Cornea: trc glutatta OU and diffused 1+ pigmented deposits on endo OU Racial melanosis OU (-)k spindle OU AC: D&Q OU Angles: 4x4 OU Iris: flat and clear (-)NVI/TID OU Lens: PCIOL OU (-)PXF OU Tonometry: Performed by student, reviewed by attending [ ] GAT [x ] iCare OD 12 mmHg OS 10 mmHg Time: 09:40 Last IOP OD: 14 OS: 14 Pt deferred dilation Fundus exam: Dilated: Non dilated:xxx Performed by student, repeated by attending Vit: Limited undilated view OU C/D: 0.50 OU pink & healthy rim tissue,(-)Drance heme Macula: Limited undilated view OU PPole: Limited undilated view OU A/V: 2/3 Vessels: normal caliber (-)VB OU Periph: Limited undilated view OU Assessment/Plan: 1. Retinal scar with RPE hyperplasa OS; not evaluated today due to limited undilated view - Suspect previous choroidal/vasculitis vs post traumatic - Possible remote hx of trauma with ball OS when much younger per pt - Evaluated with [facility] who confirmed quiet scarring without evidence of activity - Stable - Monitor at next CEE 2. Pseudophakia OU - Stable - Monitor 3. Dry eye syndrome OU, symptomatic - Renewed Refresh to use up to QID prn - Monitor 4. Presbyopia OU - Stable - Pt deferred getting new glasses today - Monitor Return to Clinic 1yr or earlier PRN Education: After discussion and answering all 's questions, [place] demonstrated and verbalized understanding of diagnosis and treatment. Yes [x] No [ ] Medication Reconciliation: Outpatient: Has the patient been taking medications as documented in the EMLR? YES: The patient has been taking medications as documented in the EMLR. Essential Medication List for Review used to complete this medication reconciliation. INCLUDED IN THIS LIST: Alphabetical list of active outpatient prescriptions [facility] from this [facility] (local) and dispensed from another [place] or [facility] facility (remote) as [...] with a [facility] or non-VA provider. /agatha/ RAUL PAGE OPTOMETRY STUDENT Signed: 10/29/2024 11:57 /agatha/ JAYCE CLARKE OD STAFF REFRIGERATOR GLAZIER Cosigned: 10/29/2024 11:58 RAUL PAGE [facility]
--- OUTSIDE RECORDS SUMMARY | 2025-01-02 10:12 | XMS_ITS | Encounter Summary ---
Author Name [facility] [place] Organization [facility] Address [address] [place] [address] Care Team Providers Care Director Trial Name Role Phone VIKI KAMARA Primary Care [...] Patient's Relationship to Policy Law MEDICAID MEDICAID [facility] JORGE ANA FRANCISCO Aug 22, 2015 MEDICAI D [id number] CARLOS ENRIQUE FLORES PATIENT [facility] RX PRESCRIPT ION RX Aug 22, 2022 THPRX [id number] [phone] CARLOS ENRIQUE FLORES PATIENT [facility] RX PRESCRIPT ION RX Aug 22, 2022 THPRX [id number] CARLOS ENRIQUE FLORES PATIENT [facility] RX PRESCRIPT ION RX Aug 22, 2022 THPRX [id number] [phone] CARLOS ENRIQUE FLORES PATIENT [facility] RX PRESCRIPT ION RX Aug 22, 2022 THPRX [id number] CARLOS ENRIQUE FLORES PATIENT [facility] 2017 DIREC T CARE NON-B ILL Jun 28, 2021 [id number] CARLOS ENRIQUE FLORES PATIENT [facility] 2018 DIRE T CARE ADS Nov 27, 2020 [id number] [phone] FLORESCARLOS ENRIQUE FRANCISCO PATIENT [facility] KE[facility] MAR 2022 [id number] CARLOS ENRIQUE FLORES PATIENT [facility] PLAN RAMAN Barclay 2022 [id number] FLORESCARLOS ENRIQUE FRANCISCO PATIENT [facility]WNR[facility] CABA 2022 [id number] [phone] SANDRACARLOS ENRIQUE FRANCISCO PATIENT Selected Encounter This section includes the information on record at [place] for the Encounter. Date/Time Encounter Type Encounter Description Reason Provider Source Sep 17, 2024 09:30 AM OFFICE O/P EST MOD 30 MIN PRIMARY CARE/MEDICINE ICD-10-CM E78.00 Pure hypercholesterole michael, unspecified VIKI KAMARA Encounter Template Text not used by [place] Assessments - Encounter Diagnoses This section includes the primary and secondary diagnoses documented for the Encounter. Date/Time Primary/Secondary Diagnosis Diagnosis Name Provider Source Sep 17, 2024 10:02 AM PRIMARY Pure hypercholesterolemi a, unspecified VIKI KAMARA Sep 17, 2024 10:02 AM SECONDARY Encounter for immunization ALEKSEY ALEMAN [place] Sep 17, 2024 10:02 AM SECONDARY Rash and other nonspecific skin eruption VIKI KAMARA [place] Plan of Treatment: Future Appointments (+ 6 months) and Future Tests (+/- 45 days) The Plan of Treatment section includes future care activities for the patient [facility] This section includes future appointments and future orders which are active, pending or scheduled. Future Appointments This section includes appointments that were scheduled to occur 6 months from the date of the Encounter, up to a maximum of 20 appointments. The data comes from all [place] treatment facilities. Appointment Date/Time Appointment Type Appointme nt Facility Name Sep 24, 2024 01:00 PM AMBULATORY - PSYCHIATRY [facility] Sep 27, 2024 10:00 AM AMBULATORY - PS[place]CHIATRY [place] [facility] [place] [facility] Oct 15, 2024 01:00 PM AMBULATORY - PSYCHIATRY [facility] Oct 22, 2024 01:00 PM AMBULATORY - PSYCHIATRY [facility] Oct 29, 2024 10:00 AM AMBULATORY - MEDICINE [place] [facility] Nov 05, 2024 09:30 AM AMBULATORY - PSYCHIATRY [facility] Nov 19, 2024 01:00 PM AMBULATORY - PSYCHIATRY [place] [facility] [facility] Nov 29, 2024 10:00 AM AMBULATORY - PSYCHIATRY [place] [facility] [facility] Dec 17, 2024 01:00 PM AMBULATORY - PSYCHIATRY [place] [facility] Dec 19, 2024 08:45 AM AM[facility]UL[facility]ORY [facility] MEDICINE [facility] December 31, 2024 01:00 PM AMBULATORY - PSYCHIATRY [place] [facility] [facility] Jan 23, 2025 10:00 AM AMBULATORY - PSYCHIATRY [place] [facility] [place] [facility] Mar 04, 2025 09:30 AM AMBULATORY - PSYCHIATRY [facility] Active, Pending, and Scheduled Orders This section includes a listing of several types of active, pending, and scheduled orders, including clinic medications orders, diagnostic test orders, procedure orders and consult orders; where the start date of the order is 45 days before the date of the Encounter or 45 days after the date of theEncounter. The data comes from all [place] treatment facilities. Test Date/Time Test Type Test Details Facility Name Oct 29, 2024 03:08 PM Consult Order [facility] Cons Deck Scaler's Choice [facility] Lab Results: +/- 30 days of the encounter This section includes the Chemistry and Hematology Lab Results on record with [place] for the patient. Radiology Reports and Pathology Reports are provided separately, in subsequent sections. Lab Results This section contains the Chemistry/Hematology Results that were resulted 30 days before or 30 daysafter the date of the Encounter. Date/Time Source Result Type Result - Unit Interpretation Reference Range Specimen Type Comment Sep 11, 2024 08:52 AM [place] MICROALBUMIN CREATININE RATIO PANEL URINE Specimen Type: URINE No comment entered. Ordering Provider: VIKI KAMARA Report Released Date/Time: Dec 20, 2023 10:39 AM Reporting Lab: [address] [address] Performing Lab: [address] [address] MICROALBUMIN/CREATININE RATIO 31.9 mg/g H 0-29.9 MICROALBUMIN,QUANTITATIVE 6.1 mg/dL RR U NAVAIL CREATININE URINE 191.08 mg/dL Sep 11, 2024 08:52 AM [place] URINALYSIS URINE S pecimen Type: URINE Comment: If Glucose = >500 and Ketones are positive, please alert the Physician. Ordering Provider: VIKI KAMARA Report Released Date/Time: Dec 20, 2023 10:39 AM Reporting Lab: [facility] [address] [address] Performing Lab: [facility] [address] [address] UA COLOR Light-Yellow Yellow UA APPEARANCE Clear Clear UA GLUCOSE Normal mg/dL Negative UA KETONES NEGATIVE mg/dL Negative UA BLOOD NEGATIVE mg/dL Negative UA PROTEIN 20 mg/dL Negative UA NITRITE NEGATIVE mg/dL Negative UA BILIRUBIN NEGATIVE mg/dL Negative UA SPECIFIC GRAVITY 1.022 1.016-1.022 UA pH 5.5 5.0-9.0 UA UROBILINOGEN Normal mg/dL <2.0 UA LEUKOCYTE NEGATIVE Negative Sep 11, 2024 08:43 AM [place] PSA SERUM Sp ecimen Type: SERUM No comment entered. Ordering Provider: VIKI KAMARA Report Released Date/Time: Dec 20, 2023 10:39 AM Reporting Lab: [facility] [address] [address] Performing Lab: [facility] [address] [address] PSA 0.66 ng/mL 0.00-4.00 Sep 11, 2024 08:43 AM [place] URIC ACID SERUM Sp ecimen Type: SERUM No comment entered. Ordering Provider: VIKI KAMARA Report Released Date/Time: Dec 20, 2023 10:39 AM Reporting Lab: [facility] [address] [address] Performing Lab: [facility] [address] [address] URIC ACID 4.9 mg/dL 3.5-7.2 Sep 11, 2024 08:43 AM [place] CALCIUM SERUM Sp ecimen Type: SERUM No comment entered. Ordering Provider: VIKI KAMARA Report Released Date/Time: Dec 20, 2023 10:39 AM Reporting Lab: [facility] [address] [address] Performing Lab: [facility] [address] [address] CALCIUM 9.8 mg/dL 8.5-10.2 Sep 11, 2024 08:43 AM [place] LIVER FUNCTION SERUM Specimen Type: SERUM No comment entered. Ordering Provider: VIKI KAMARA Report Released Date/Time: Dec 20, 2023 10:39 AM Reporting Lab: [facility] [address] [address] Performing Lab: [facility] [address] [address] PROTEIN,TOTAL 8.7 g/dL H 6.0-8.3 ALBUMIN 4.1 g/dL 3.5-5.0 ALKALINE PHOSPHATASE 50 U/L 40-150 AST 18 U/L 5-34 ALT 20 U/L BILIRUBIN, TOTAL 0.4 mg/dL 0.2-1.2 Sep 11, 2024 08:43 AM [place] TSH SERUM Sp ecimen Type: SERUM No comment entered. Ordering Provider: VIKI KAMARA Report Released Date/Time: Dec 20, 2023 10:39 AM Reporting Lab: [facility] [address] [address] Performing Lab: [facility] [address] TSH 3.35 u[IU]/mL 0.35-5.00 Sep 11, 2024 08:43 AM [place] LIPID PANEL FASTING SERUM Specimen Ty pe: SERUM No comment entered. Ordering Provider: VIKI KAMARA Report Released Date/Time: Dec 20, 2023 10:39 AM Reporting Lab: [facility] [address] [address] Performing Lab: [facility] [address] [address] CHOLESTEROL 239 mg/dL H TRIGLYCERIDE 158 mg/dL H 0-150 LDL calculated 153 mg/dL H 0-129 CHOL/HDL 4.4 HDL CHOLESTEROL 54 mg/dL 40-60 Sep 11, 2024 08:43 AM [place] BASIC METABOLIC PANEL (fasting) SERUM Specimen Type: SERUM No comment entered. Ordering Provider: VIKI KAMARA Report Released Date/Time: Dec 20, 2023 10:39 AM Reporting Lab: [address] [address] Performing Lab: [address] [address] UREA NITROGEN 17 mg/dL 7-25 GLUCOSE 101 mg/dL H 65-100 SODIUM 142 mmol/L 135-145 POTASSIUM 4.8 mmol/L 3.5-5.0 CHLORIDE 105 mmol/L 100-110 CO2 29 meq/L 20-30 CREATININE, Serum 1.14 mg/dL 0.50-1.40 eGFR(CKD-EPI 2020) 72 mL/min >60 Sep 11, 2024 08:43 AM [place] VITAMIN D (25-OH) SERUM Specimen Type: SERUM No comment entered. Ordering Provider: VIKI KAMARA Report Released Date/Time: Dec 20, 2023 10:39 AM Reporting Lab: [address] [address] Performing Lab: [address] [address] VITAMIN D (25-OH) 45 ng/mL 20-50 Sep 11, 2024 08:43 AM [place] FERRITIN SERUM Sp ecimen Type: SERUM No comment entered. Ordering Provider: VIKI KAMARA Report Released Date/Time: Dec 20, 2023 10:39 AM Reporting Lab: [facility] [address] [address] Performing Lab: [address] [address] FERRITIN 159 ng/mL 20-300 Sep 11, 2024 08:43 AM [place] HEMOGLOBIN A1C PANEL BLOOD Specimen T ype: BLOOD Comment: Values obtained from A1C measurements can vary. For atypical A1C assays, a reported value of 7.0 could actually be between 6.72 and 7.28 if measured by a reference method. A reported value of 9.0 could actually be between 8.73 and 9.27. Ref: http://www.ngsp.org/CAPdata.asp Ordering Provider: VIKI KAMARA Report Released Date/Time: Dec 20, 2023 10:39 AM Reporting Lab: [address] [address] Performing Lab: [address] [address] HEMOGLOBIN A1C 5.6 4.0-5.6 Sep 11, 2024 08:43 AM [place] CBC AND DIFF (AUTO) BLOOD Specimen Ty pe: BLOOD No comment entered. Ordering Provider: VIKI KAMARA Report Released Date/Time: Dec 20, 2023 10:39 AM Reporting Lab: [address] [address] Performing Lab: [address] [address] WBC 3.16 10*3/uL L 4.50-11.00 RBC 5.38 10*6/uL 4.23-5.66 HGB 15.4 g/dL 12.8-17 HCT 47.7 39.2-50.4 MCV 88.7 fL 82-99 MCHC 32.3 g/dL 30.8-35.1 PLT 228 10*3/uL 140-360 RDW-CV 12.5 12.0-16.0 MONO, ABS 0.25 10*3/uL L 0.30-1.10 MCH 28.6 pg 26.2-32.6 NEUT % 54.8 43.7-75.8 LYMPH % 34.2 14.0-42.3 MONO % 7.9 5.1-13.7 EOS % 1.9 0.4-6.8 BASO % 0.9 0.1-2.0 NEUT, ABS 1.73 10*3/uL L 2.20-7.60 LYMPH, ABS 1.08 10*3/uL 1.00-3.20 EOS, ABS 0.06 10*3/uL 0.03-0.44 BASO, ABS 0.03 10*3/uL 0.01-0.13 IMMATURE GRAN % 0.3 0.0-0.7 IMMATURE GRAN, ABS 0.01 10*3/uL 0.00-0.0 6 NRBC % 0.0 0.0-0.0 NRBC, ABS 0.00 10*3/uL 0.00-0.00 Vital Signs: All taken on the encounter date This section contains inpatient and outpatient Vital Signs collected on the date of the Encounter. Date/Time Temperature Pulse Blood Pressure Respiratory Rate SP02 Pain Height Weight Body Mass Index Source Sep 17, 2024 09:38 AM 97 64 136/88 18 97 243 31 [facility] Immunizations: All administered on the encounter date This section contains immunizations associated to the Encounter. Immunization Series Date Issued Administered By Site Reaction Lot Number CVX Code Drug Drying Oven Tender Comment(s) Source INFLUENZA, SPLIT VIRUS, TRIVALENT, PF Sep 17, 2024 ISADORARACHELPENG Foreign LEFT DELTO ID [id number] Just Eat URI [facility] Social History: Smoking Status (Most current) and Tobacco Use (All prior to encounter date) This section includes the most current, and the historical, smoking and tobacco- related health factors from the [place] facility where the Encounter took place. Current Smoking Status This section includes the most current smoking, or tobacco-related health factor, from the [place] facility where the Encounter took place. Date/Time Current Smoking Status Comment Taz mae Nov 24, 2023 10:00 AM [place]-TOBACCO NEVER USED [place] Tobacco Use History This section includes a history of the smoking, or tobacco-related health factors, that were collected on or before the date of the Encounter. The data comes from the [place] facility where the Encounter took place. Date/Time Smoking Status/Tobacco Use Comment F acility Oct 15, 2022 09:30 AM VA-TOBACCO NEVER USED [place] Nov 02, 2021 09:00 AM VA-TOBACCO NEVER USED [place] Oct 27, 2020 02:00 PM VA-TOBACCO NEVER USED [place] Oct 17, 2020 02:31 PM VA-TOBACCO NEVER USED [place] Jul 27, 2017 10:08 AM LIFETIME NON-TOBACCO USER [place] Sep 17, 2015 12:17 PM LIFETIME NON-TOBACCO USER [place] Encounter Notes: All associated encounter notes This section contains the clinical notes associated to the Encounter. Date/Time Encounter Note(s) Provider Source Sep 17, 2024 09:43 AM PREVENTIVE MEDICIN E NURSING NOTE: LOCAL TITLE: CLINICAL REMINDERS/NURSING STANDARD TITLE: PREVENTIVE MEDICINE NURSING NOTE DATE OF NOTE: SEP 17, 2024@09:43 ENTRY DATE: SEP 17, 2024@09:43:17 AUTHOR: DEMI ALEMAN EXP COSIGNER: URGENCY: STATUS: COMPLETED Influenza Immunization: Influenza, Trivalent, Preservative Free (Fluarix-Syringe) Administered: INFLUENZA, SPLIT VIRUS, TRIVALENT, PF Date Administered: Sep 17, 2024 09:30 Drying Oven Tender: [employer] Lot: [id number] Exp Date: Feb 18, 2025 [facility]: [id number] Admin Route/Site: INTRAMUSCULAR/LEFT DELTOID Dosage: 0.5mL Vaccine Information Statement(s): INFLUENZA(FLU) VACC(INACTIVATED OR RECOMBINANT)VIS Mar 27, 2021 (LITHUANIAN) Order By: Policy Administered By: Demi Aleman Override Reason: vetern wanted flu vaccine today The Influenza Vaccine Information Statement (VIS) was reviewed with the patient/caregiver which lists the benefits and risks of the vaccine and the risks of not receiving the Influenza vaccine. The patient/caregiver denied any prior severe reaction to this vaccine or its components or a severe allergic reaction, such as anaphylaxis, to any vaccine or any injectable therapy. The patient/caregiver gave verbal consent to receive the vaccine. Td / Tdap Immunization: The patient declines to receive the recommended dose of Td/Tdap vaccine. Immunization: TD(ADULT) UNSPECIFIED FORMULATION Refusal Reason: PATIENT DECISION Patient refuses all immunization(s) in the Td group Date Documented: 09/17/24 09:44 COVID-19 Immunization: Refused Moderna Monovalent COVID-19 vaccine Immunization: COVID-19 (MODERNA), MRNA, LNP-S, PF, 50 MCG/0.5 ML (AGES 12+ YEARS) Refusal Reason: PATIENT DECISION Patient refuses all immunization(s) in the COVID-19 group Date Documented: 09/17/24 09:45 Herpes Zoster (Shingles) Vaccine: The patient declines to receive the recommended dose of zoster (shingles) vaccine. Immunization: ZOSTER RECOMBINANT Refusal Reason: PATIENT DECISION Patient refuses all immunization(s) in the ZOSTER group Date Documented: 09/17/24 09:45 /agatha/ DEMI ALEMAN LPN LICENSED PRACTICAL NURSE Signed: 09/17/2024 09:46 DEMI ALEMAN [place] Sep 17, 2024 09:36 AM PHYSICIAN CARLOS Pradhan NOTE: LOCAL TITLE: PA NOTE STANDARD TITLE: PHYSICIAN GRADES 1 THROUGH 6 TEACHER NOTE DATE OF NOTE: SEP 17, 2024@09:36 ENTRY DATE: SEP 17, 2024@09:36:21 AUTHOR: VIKI KAMARA COSIGNER: URGENCY: STATUS: COMPLETED S - routine re-eval O - HEENT: normocephalic NECK: no bruits not tender and no adeno LUNGS: resp full reg unlabored; CTA b/l COR: RRR, no M ABD: soft, not tender EXT: no LLE LABS: reviewed w/ pt A/P - 1) PFB - use clippers vs. shaving of neck, face - also trials Clindamycin Lot and TAC CR Daily 2) Normotensive 3) Hypercholesterolemia - LDL 153 in SEP 15 - on Lipitor, but Diet Is Problem 4) C/V Stable - never LA 5) Neuro Stable - never CVA/TIA RTC APR 15 - labs before Medication Reconciliation: Outpatient: Has the patient been taking medications as documented in the EMLR? YES: The patient has been taking medications as documented in the EMLR. Essential Medication List for Review used to complete this medication reconciliation. INCLUDED IN THIS LIST: Alphabetical list of active outpatient prescriptions dispensed from this VA (local) and dispensed from another [place] or [facility] facility (remote) as well as inpatient orders (local, pending and active), local clinic medications, locally documented non-VA medications, and local prescriptions that have or been discontinued in the past 90 days. - All changes in medications, including all non-VA/Herbal/OTC medications were entered into CPRS. Changes: nt - If there were any medications the patient should no longer take, they were discontinued. - The patient/caregiver was instructed to update this list, discard old lists, and take this list to the next appointment, whether with a VA or non-VA provider. /agatha/ VIKI KAMARA PA-C STAFF PHYSICIAN GRADES 1 THROUGH 6 TEACHER Signed: 09/17/2024 10:02 VIKI KAMARA
--- OUTSIDE RECORDS SUMMARY | 2025-01-02 10:12 | XMS_ITS | Encounter Summary ---
Author Organization [facility] Address [address] [place] [address] Care Team Providers Care Director Of Slot Operations Name Role Phone Matthew Baca MD Primary Care Provider Encounter Details Date Type Department Care Team (Late st Contact Info) Description 08/07/2024 Lab Requisition [facility] - Main Lab [address] [place] [address] Pa Mccormick PA [address] [facility] [address] [place] [address] Benign prostatic hyperplasia without lower urinary tract symptoms Social History Tobacco Use Types Packs/Day Years Used Date Smoking Tobacco: Never Assessed Sex and Gender Information Value Date Recorded Sex Assigned at Not on file Legal Sex Male 12:35 PM EST Gender Identity Not on file Sexual Orientation Not on file documented as of this encounter Plan of Treatment Not on file documented as of this encounter Procedures Procedure Name Priority Date/Time Associated Diagnosis Comments PROSTATE SPECIFIC ANTIGEN DIAGNOSTIC Routine 08/07/2024 8:48 AM EST Benign prostatic hyperplasia without lower urinary tract symptoms documented in this encounter Results * Prostate specific antigen diagnostic (08/07/2024 8:48 AM EST) PSA 0.45 0.00 - 4.00 ng/mL LAB CHEMISTRY METHOD 08/07/2024 1:55 PM EST [facility] Blood Venous blood specimen / Unknown 08/07/2024 8:48 AM EST 08/07/2024 12:32 PM EST Narrative [facility] - 08/07/2024 1:55 PM EST The Siemens Advia Centaur Chemiluminescent Immunoassay is used. Results obtained with different assay methods or kits cannot be used interchangeably. Results cannot be interpreted as absolute evidence of the presence or absence of malignant disease. us Pa JOSEPH LAB BLOOD ORDERABLES Final Resul t [facility] [address] [place] [address], documented in this encounter Visit Diagnoses Diagnosis Benign prostatic hyperplasia without lower urinary tract symptoms documented in this encounter Care Teams Director Of Slot Operations Relationship Specialty Start Date End Date Matthew Baca MD [address] [place] [address] Dr [address] [place] PCP - General Internal Medicine 08/07/24 documented as of this encounter
--- OUTSIDE RECORDS SUMMARY | 2025-01-02 10:12 | XMS_ITS | Encounter Summary ---
Author Name Department of [facility] ([place]) Organization [facility] Address [address] [place] [address] Care Team Providers Care Technical Instructor Course Developer Name Role Phone VIKI KAMARA Primary Care [...] Patient's Relationship to Policy Law MEDICAID MEDICAID [place] Aug 22, 2015 MEDICAI D [id number] CARLOS ENRIQUE FLORES NOLAN PATIENT [facility] RX PRESCRIPT ION RX Aug 22, 2022 THPRX [id number] [id number] [phone] CARLOS ENRIQUE FLORES PATIENT [facility] RX PRESCRIPT ION RX Aug 22, 2022 THPRX [id number] FLORESCARLOS ENRIQUE NOLAN PATIENT [facility] RX PRESCRIPT ION RX Aug 22, 2022 THPRX [id number] [id number] [phone] FLORESCARLOS ENRIQUE FRANCISCO PATIENT [facility] RX PRESCRIPT ION RX Aug 22, 2022 THPRX [id number] FLORESCARLOS ENRIQUE NOLAN PATIENT [facility] 2017 DIREC T CARE NON-B ILL Jun 28, 2021 [id number] FLORESCARLOS ENRIQUE NOLAN PATIENT [facility] 2018 DIREC T CARE ADSM Nov 27, 2020 [id number] CARLOS ENRIQUE FLORESD PATIENT [facility] KHOURY 2022 [id number] [phone] CARLOS ENRIQUE FLORES PATIENT [facility] PLAN RAMAN Barclay 2022 [id number] CARLOS ENRIQUE FLORES PATIENT [facility] (W[facility] COCO CABA 2022 [id number] CARLOS ENRIQUE FLORES PATIENT Selected Encounter This section includes the information on record at [place] for the Encounter. Date/Time Encounter Type Encounter Description Reason Provider Source December 31, 2024 01:00 PM GROUP PS[facility]CH[facility]Y [facility] ICD-10-CM F43.12 Post-traumati c stress disorder, chronic [place] TH[place]PE Deny Encounter Template Text not used by VA Assessments - Encounter Diagnoses This section includes the primary and secondary diagnoses documented for the Encounter. Date/Time Primary/Secondary Diagnosis Diagnosis Name Provider Source December 31, 2024 10:28 PM PRIMARY Post-traumatic stress disorder, chronic [place] THORPE HUNTER Plan of Treatment: Future Appointments (+ 6 months) and Future Tests (+/- 45 days) The Plan of Treatment section includes future care activities for the patient from all [place] treatmentfacilities. This section includes future appointments and future orders which are active, pending or scheduled. Future Appointments This section includes appointments that were scheduled to occur 6 months from the date of the Encounter, up to a maximum of 20 appointments. The data comes from all [place] treatment facilities. Appointment Date/Time Appointment Type Appointme nt Facility Name Jan 23, 2025 10:00 AM AMBULATORY - PSYCHIATRY [facility] Mar 04, 2025 09:30 AM AMBULATORY - PS[facility]CHIATRY [facility] Apr 15, 2025 09:00 AM AMBULATORY - MEDICINE [facility] Social History: Smoking Status (Most current) and Tobacco Use (All prior to encounter date) This section includes the most current, and the historical, smoking and tobacco- related health factors from the VA facility where the Encounter took place. Current Smoking Status This section includes the most current smoking, or tobacco-related health factor, from the [place] facility where the Encounter took place. Date/Time Current Smoking Status Comment Taz mae Nov 24, 2023 10:00 AM VA-TOBACCO NEVER USED [place] Tobacco Use History This section includes a history of the smoking, or tobacco-related health factors, that were collected on or before the date of the Encounter. The data comes from the [place] facility where the Encounter took place. Date/Time Smoking Status/Tobacco Use Comment F acility Oct 15, 2022 09:30 AM VA-TOBACCO NEVER USED [place] Nov 02, 2021 09:00 AM VA-TOBACCO NEVER USED [place] Oct 27, 2020 02:00 PM VA-TOBACCO NEVER USED [place] Oct 17, 2020 02:31 PM VA-TOBACCO NEVER USED [place] Jul 27, 2017 10:08 AM LIFETIME NON-TOBACCO USER [place] Sep 17, 2015 12:17 PM LIFETIME NON-TOBACCO USER [place]
--- OUTSIDE RECORDS SUMMARY | 2025-01-02 10:12 | XMS_ITS | Encounter Summary ---
Author Name [facility] [place] [facility] Address [address] [place] [address] Care Team Providers Care Science Manager Name Role Phone VIKI KAMARA Primary Care [...] Law MEDICAID MEDICAID [facility] JORGE PEREZ NOLAN Aug 22, 2015 MEDICAI D [id number] CARLOS ENRIQUE FLORES PATIENT [facility] Aug 22, 2022 THPRX [id number] CARLOS ENRIQUE FLORES PATIENT [facility] Aug 22, 2022 THPRX [id number] CARLOS ENRIQUE FLORES PATIENT [facility] PRES[facility] ION RX Aug 22, 2022 THPRX [id number] CARLOS ENRIQUE FLORES PATIENT [facility] PRESCRIPT ION RX Aug 22, 2022 THPRX [id number] CARLOS ENRIQUE FLORES PATIENT [facility] 2017 DIREC T CARE NON-B ILL Jun 28, 2021 [id number] CARLOS ENRIQUE FLORES PATIENT [facility] 2018 DIRE T CARE ADSM Nov 27, 2020 [id number] [phone] CARLOS ENRIQUE FLORES PATIENT [facility] TH[facility] MAR 2022 [id number] CARLOS ENRIQUE FLORES PATIENT [facility] PLAN RAMAN CABA E 2022 [id number] CARLOS ENRIQUE FLORES PATIENT [facility]P -BRIG DANYON GERTRUDIS 2022 [id number] [phone] CARLOS ENRIQUE FLORES PATIENT Selected Encounter This section includes the information on record at [place] for the Encounter. Date/Time Encounter Type Encounter Description Reason Provider Source Nov 05, 2024 09:30 AM OFFICE O/P EST MOD 30 MIN [facility] - IND ICD-10-CM F43.12 Post-traumatic stress disorder, chronic KORIN CASTELLANOS Encounter Template Text not used by [place] Assessments - Encounter Diagnoses This section includes the primary and secondary diagnoses documented for the Encounter. Date/Time Primary/Secondary Diagnosis Diagnosis Name Provider Source Nov 05, 2024 09:51 AM PRIMARY Post-traumatic stress disorder, chronic SABRINA CASTELLANOS Nov 05, 2024 09:51 AM SECONDARY Major depressive disorder, single episode, unspecified SABRINA CASTELLANOS Plan of Treatment: Future [...] Appointment Type Appointme nt Facility Name Nov 19, 2024 01:00 PM AMBULATORY - PSYCHIATRY [facility] Nov 29, 2024 10:00 AM AMBULATORY - PSYCHIATRY [facility] Dec 17, 2024 01:00 PM AMBULATORY - PSYCHIATRY [facility] Dec 19, 2024 08:45 AM [facility] December 31, 2024 01:00 PM AMBULATORY - PSYCHIATRY [facility] Jan 23, 2025 10:00 AM [facility] Mar 04, 2025 09:30 AM AMBULATORY - PSYCHIATRY [facility] Apr 15, 2025 09:00 AM AMBULATORY - MEDICINE [facility] Active, Pending, and Scheduled Orders [...] PM Consult Order COMMUNITY CARE-DENTAL GENERAL Cons Professor Of Management's Choice [facility] Social History: Smoking Status (Most current) [...] Taz mae Nov 24, 2023 10:00 AM CO-TOBACCO NEVER USED [facility] Tobacco Use History This section includes a history of the smoking, or tobacco-related health factors, that were collected on or before the date of the Encounter. The data comes from the [place] facility where the Encounter took place. Date/Time Smoking Status/Tobacco Use Comment F acility Oct 15, 2022 09:30 AM VA-TOBACCO NEVER USED [facility] Nov 02, 2021 09:00 AM VA-TOBACCO NEVER USED [facility] Oct 27, 2020 02:00 PM VA-TOBACCO NEVER USED [facility] Oct 17, 2020 02:31 PM VA-TOBACCO NEVER USED [facility] Jul 27, 2017 10:08 AM LIFETIME NON-TOBACCO USER [facility] Sep 17, 2015 12:17 PM LIFETIME NON-TOBACCO USER [facility] Encounter Notes: All associated encounter notes This section contains the clinical notes associated to the Encounter. Date/Time Encounter Note(s) Provider Source Nov 05, 2024 09:32 AM TELEHEALTH NOTE: LOCAL TITLE: [place] VIDEO CONNECT PSYCHIATRIST NOTE STANDARD TITLE: TELEHEALTH NOTE DATE OF NOTE: NOV 05, 2024@09:32 ENTRY DATE: NOV 05, 2024@09:32:41 AUTHOR: SABRINA CASTELLANOS COSIGNER: URGENCY: STATUS: COMPLETED [facility] Video Connect (VVC) Standard Documentation VVC Clinician Resources Only: E911 (Emergency Call Relay Center): [phone] National Veterans Crisis Line - 988 then press #1. CW Suicide Coordinator [phone], Ext. [phone]; Back-up Ext. [phone] [place] Police, [place], [place] [phone] Introduction: Visit is being conducted by [place] [employer]. identified with 2 identifiers: [X] Full Name [X] Date of [ ] [place] ID Card Emergency Plan: [place] confirmed and/or provided the following information in case of emergency or technology failure. PATIENT PHONE - PHONE NUMBER [CELLULAR] - Is patient phone number correct, if not, enter below: [place]'s phone number: LASHAE FLORES [address] [place] [address] [address] [place], [place], [address] 's present location and address for appointment: home 's emergency contact name and phone number: sister Amanda Isaacs [phone] [place] reported that location is private and safe: Yes Informed Consent: [place] informed of the risks and benefits of Telehealth video care. has the right to refuse video services. If refuses video visit, a zhzp-pu-vorf visit will be scheduled. verbalized consent for this video visit: Yes provided consent for any other persons present for visit: N/A If yes, who and relationship to patient: Secure visit: Visit was locked for security and privacy:Yes Does this visit involve laterality/specific side of body? N/A 30 min for encounter, including chart review, interview, charting chart reviewed see my 01/13/21 note for history Patient relatively stable. Again, patient reports improved depression overall. PTSD symptoms/irritability also improved, but can worsen under stress. Affect can brighten appropriately. Patient denies suicidal and violent ideation. Denies history of psychotic symptoms. Well organized thoughts. No paranoid or delusional content presented. Cognitive exam grossly intact. Speech normal. Has interests - pt plans to participate in [facility] gr[facility], along with usual [facility] programming. Reviewed the psychiatric medication, and he reports good response and he wants to keep meds the same, [...] ECG normal 5. Chronic Post-Traumatic Stress Disorder ([facility] [id number]) 6. Depression ([facility] [id number]) 7. Sleep apnea 8. Exposure to potentially hazardous chemical 9. lymphectomy 10. History of appendectomy 11. Lateral epicondylitis 12. Recurrent brief depressive disorder 13. Screening for malignant neoplasm of colon done 14. medical providers outside [facility] 15. Impotence of organic origin 16. Pain of left knee region 17. Rt Rib Pain 18. Hypercholesterolemia (SNOMED CT [id number]) Active Outpatient Medications (including Supplies): Active Outpatient Medications Status 1) ATORVASTATIN CALCIUM 40MG TAB TAKE ONE-HALF TABLET BY MOUTH ACTIVE ONCE DAILY FOR CHOLESTEROL Indication: FOR HIGH CHOLESTEROL 2) CARBOXYMETHYLCELLULOSE NA 0.5% OPH SOLN INSTILL 1 DROP INTO ACTIVE (S) EACH EYE FOUR TIMES DAILY NEEDED Indication: FOR DRY EYE 3) CLINDAMYCIN PHOSPHATE 1% TOP SOLN APPLY THIN LAYER TOPICALLY ACTIVE ONCE DAILY NEEDED Indication: FOR ACNE 4) DULOXETINE HCL 60MG EC CAP TAKE TWO CAPSULES BY MOUTH ONCE ACTIVE (S) DAILY Indication: MOOD/PTSD 5) LORATADINE 10MG TAB TAKE ONE TABLET BY MOUTH ONCE DAILY ACTIVE Indication: FOR ALLERGY 6) TRAZODONE HCL 50MG TAB TAKE ONE AND ONE-HALF TABLETS BY ACTIVE MOUTH AT BEDTIME NEEDED INSOMNIA Indication: FOR INSOMNIA ASSOCIATED WITH DEPRESSION 7) TRIAMCINOLONE ACETONIDE 0.1% CREAM APPLY A THIN LAYER ACTIVE TOPICALLY TWICE DAILY NEEDED Indication: FOR ITCHING PSYCHIATRIC MEDICATION HISTORY: Prazosin, hydroxyzine, propranolol for [...] I performed careful risk assessment. See C-SSRS below The pt is probably low risk for suicide or violence -- the patient denied suicidal and violent ideation, but the [facility] Crisis Line information and number were reviewed with patient, as a precaution. The patient also understands to call 911 or to go to ER in the event of an emergency. continue psychotherapy for PTSD and depression -- Dr. Crawford continue PTSD Support group ralf Gomez anger mangagement grp -- pt finished this -- found helpful, uses the strategies CONTINUE CYMBALTA 120 MG DAILY - good benefit for depression, PTSD, anxiety -- pt satisfied with the response. Patient tolerating Cymbalta well. CONTINUE TRAZODONE 75 [...] noted any side effects. Return to clinic 3-4 mo or sooner by calling for open [...] of active outpatient prescriptions dispensed from this CO (local) and dispensed from another [place] or DoD facility (remote) as well as inpatient orders [...] whether with a VA or non-VA provider. Suicide Screen: C-SSRS Screening [place]-Suicide Severity Rating Scale (C-SSRS Screener) 1. Over the past month, have you wished you were or wished you could go to sleep and not wake up? No 2. Over the past month, have you had any actual thoughts of killing yourself? No 3. Over the past month, have you been thinking about how you might do this? Response not required due to responses to other questions. 4. Over the past month, have you had these thoughts and had some intention of acting on them? Response not required due to responses to other questions. 5. Over the past month, have you started to work out or worked out the details of how to kill yourself? Response not required due to responses to other questions. 6. If yes, at any time in the past month did you intend to carry out this plan? Response not required due to responses to other questions. 7. In your lifetime, have you ever done anything, started to do anything, or prepared to do anything to end your life (for example, collected pills, obtained a gun, gave away valuables, went to the roof but didn't jump)? No 8. If YES, was this within the past 3 months? Response not required due to responses to other questions. /agatha/ SABRINA CASTELLANOS MD STAFF PSYCHIATRIST Signed: 11/05/2024 09:51 Receipt Acknowledged By: 11/05/2024 09:56 /agatha/ Chary Garcia [employer]E TRANSPORTATION TECHNICIAN SABRINA CASTELLANOS
--- OUTSIDE RECORDS SUMMARY | 2025-01-02 10:12 | XMS_ITS | Clinical Summary ---
Author Organization [address] [facility] Address [address] [place] [address] Phone Care Team Providers Care Pharmacy Teacher Name Role Phone Matthew Baca MD Primary Care Provider Social History Tobacco Use Types Packs/Day Years Used Date Smoking Tobacco: Never Assessed Sex and Gender Information Value Date Recorded Sex Assigned at Not on file Legal Sex Male 12:35 PM EST Gender Identity Not on file Sexual Orientation Not on file Plan of Treatment Health Maintenance Due Date Last Done Comments DTaP,Tdap,and Td Vaccines (1 - Tdap) 1981 Pneumococcal Vaccine: 50+ Ye ars (1 of 1 - PCV) 02/17/2012 Zoster Vaccines (1 of 2) 02/17/2012 Cholesterol Screening (Lipid Panel) 07/20/2022 Colorectal Cancer Screening: Colonoscopy 07/20/2022 Depression Screening 07/20/2022 HIV Screening 07/20/2022 Hepatitis C Screening 07/20/2022 Social Influencers of Health Screening 07/20/2022 COVID-19 Vaccine ( - 2023-2 5 season) 2024 Influenza Vaccine (Season Ended) 2025 RSV Immunization Adult Patie nts (1 - 1-dose 75+ series) 2037 HIB Vaccines Aged Out No longer eligi ble based on patient's age to complete this topic HPV Vaccines Aged Out No longer eligi ble based on patient's age to complete this topic Hepatitis A Vaccines Aged Out No long er eligible based on patient's age to complete this topic Hepatitis B Vaccines Aged Out No long er eligible based on patient's age to complete this topic IPV Vaccines Aged Out No longer eligi ble based on patient's age to complete this topic MMR Vaccines Aged Out No longer eligi ble based on patient's age to complete this topic Meningococcal ACWY Vaccine Aged Out N o longer eligible based on patient's age to complete this topic Meningococcal B Vaccine Aged Out No l onger eligible based on patient's age to complete this topic Pneumococcal Vaccine: Pediat rics (0 to 5 Years) and At-Risk Patients (6 to 64 Years) Aged Out No longer eligible b ased on patient's age to complete this topic RSV Immunization Patients Un sanjuana 20 months Aged Out No longer eligible b ased on patient's age to complete this topic Varicella Vaccines Aged Out No longer eligible based on patient's age to complete this topic Insurance [phone] (Work) [address] [place] [address] [employer] Care Teams Pharmacy Teacher Relationship Specialty Start Date End Date Matthew Baca MD [address] [place] [address] [address] Blake PCP - General Internal Medicine 08/07/24
--- OUTSIDE RECORDS SUMMARY | 2025-01-02 10:12 | XMS_ITS | Data Portability ---
Author Organization [facility] [address] Address [address] [place] [address] Assessment No assessment recorded. Plan of Treatment Reminders Order Date Submit Date Provider Last Modified By Organization Details Last Modified Time Details Appointments None recorded. Lab None recorded. Referral colon & rectal surgeon referral 2022 023 [facility] Colorectal Surgery Scheduling Dept, [address] [place], [address], 3 00:26:17 Procedures None recorded. Surgeries None recorded. Imaging None recorded. Medication Orders clindamycin HCl 300 mg capsule 2022 023 [facility] #[id number], [address] [place], [address], 3 18:34:06 metronidazo le 500 mg tablet 2022 023 [id number], [address] [place], [address], 3 18:34:08 clotrimazol e-betametha sone 1 %-0.05 % topical cream 2022 023 [facility][id number], [address] [place], [address], 3 18:34:06 Patient TargetsNo targets recorded. Patient Instructions Encounter Date Encounter Id Patient Instructions Last Modified By Organization Details Last Modified Time 02/25/2023 [id number] breast abscess: care instructions Not available 02/25/2023 18:34:03 dermatitis: care instructions [email or web address] Not available 02/25/2023 18:34:03 Based on exam an d presentation you are being diagnosed with a skin abscess. I am going to prescribe you and antibiotic to cover this infection. Please be sure to complete the full course of this antibiotic to prevent antibiotic resistance. I recommend taking a Probiotic with this course of antibiotics to help to re colonize with good bacteria. Antibiotics will typically take 4-5 days to start to work with symptom improvement. The following are my other recommendations to help with symptoms and is important for this diagnosis: 1. Put warm compresses on the affected area regularly - this will help the infection come to the surface. 2. No creams or lotions on the affected area this includes neosporin. 3. Try not to squeeze the area - but you can apply light pressure to the area after you have applied a warm compress for about 15 minutes. 4. Ok for Ibuprofen or Tylenol for the pain if you are not allergic. Do not take Ibuprofen or any NSAID if you are on a blood thinner. Return if you feel that the abscess is worsening and may need to be drained. At this time, I think your treatment will be successful with just an antibiotic. Ideally this abscess will open on its own and drain. I would be seen again if you develop any of the following symptoms. 1. Fever > 101.0 2. Worsening Pain 3. Increased swelling 4. Increased Redness Thank you for using [employer] today, please feel free to contact our office if you have any questions or concerns. [email or web address] Not available 02/25/2023 18:34:01 Reason for Referral Colon & Rectal Surgeon Refer ral for Perianal pain Referring Physician: Mima Huynh, Urgent Care, Encounter Date: 02/25/2023 Problems Name Problem SNOMED Code Status Onset Date Resolution Date Notes Provider Name and Address Organization Details Recorded Time Anxiety [id number] Active JAKE Thompson - [facility] 02/25/2023 18:04:37 Problem Notes None recorded. Medical Equipment None Reported. Allergies No known drug allergies Medications Name Sig Start Date Stop Date Status Note LastModified by Organization Details LastModified Time atorvastatin 40 mg tablet active Not Available Not Available Not Available clindamycin HCl 300 mg capsule TAKE 1 CAPSULE BY MOUTH THREE TIMES A DAY FOR 10 DAYS active Not Available Not Available Not Available sertraline 100 mg tablet active Not Available Not Available Not Available metronidazol e 500 mg tablet TAKE 1 TABLET BY MOUTH THREE TIMES A DAY FOR 7 DAYS active Not Available Not Available N ot Available sildenafil 100 mg tablet TAKE ONE TABLET BY MOUTH ON AN EMPTY STOMACH DAILY NEEDED 30-60 MINUTES PRIOR TO SEX active Not Available Not Available No t Available hydrocortiso ne 1 % topical cream APPLY RECTALLY DAILY active Not Available Not Available No t Available cephalexin 500 mg capsule TAKE 1 CAPSULE BY MOUTH FOUR TIMES A DAY FOR 7 DAYS active Not Available Not Available N ot Available clotrimazole -betamethaso ne 1 %-0.05 % topical cream APPLY 1 APPLICATION TOPICALLY TWICE A DAY FOR 14 DAYS active Not Available Not Available Not Available doxycycline hyclate 100 mg tablet TAKE 1 TABLET BY MOUTH TWICE A DAY FOR 7 DAYS active Not Available Not Available No t Available cyclobenzapr ine 5 mg tablet TAKE 1 TABLET BY MOUTH THREE TIMES A DAY NEEDED FOR BACK PAIN X7 DAYS active Not Available Not Available No t Available tadalafil 5 mg tablet TAKE ONE TABLET BY MOUTH EVERY DAY active Not Available Not Available No t Available trazodone active Not Available Not Theresa ilable Not Available duloxetine active Not Available Not Av ailable Not Available GaviLyte-G 236 gram-22.74 gram-6.74 gram-5.86 gram oral solution TAKE 8 OUNCE BY MOUTH DIRECTED FOLLOW INSTRUCTION S PROVIDED TO YOU BY DOCTORS OFFICE active Not Available Not Available No t Available lidocaine 5 % topical ointment APPLY TOPICALLY 2 TIMES A DAY NEEDED FOR PAIN active Not Available Not Available No t Available Vitals Date Recorded Body height Body mass index (BMI) Body weight Pain severity - 0-10 verbal numeric rating [Score] - Reported Respiratory rate Oxygen saturation Oxygen saturation in Arterial blood by Pulse oximetry Heart rate Body temperature Systolic blood pressure Diastolic blood pressure Provider Name and Address Organization Details Last Updated DateTime 3 187.96 cm 30.8 kg/m2 944827. 17 g 4 16 /min 98 % 98 % 70 /min 97.9 [degF] 130 mm[Hg] 90 mm[Hg] Maru Patel [facility] 3 18:07:49 Social History Question Answer Notes LastModified by Organizat ion Details LastModified Time Tobacco Smoking Status Never Smoker JAKE Thompson [facility] 02/25/2023 18:05:36 Have You Had Direct Contact, Or Contact During Intimacy, With Monkeypox Rash, Scabs, Or Body Fluids From A Person With Monkeypox? No Information not available 02/25/2023 Have You Recently Traveled Abroad? No Information not available 02/25/2023 Sex: Unknown Functional Status Question Answer Note LastModified by Organizat ion Details LastModified Time How many times per week do you consume alcohol? 1-2 times per week Information not available 02/25/2023 Do you use any illicit or recreational drugs? No Information not available 02/25/2023 What is your level of alcohol consumption? Occasional Information not available 02/25/2023 Mental Status None recorded. Family History Relationship Description Onset Age of this Age Resolved Age Notes LastModified by Organization Details LastModified Time Mother Diabetes mellitus [email or web address] Not available 2022 18:04:58 Medical History No medical history recorded. Past Encounters Encounter ID Performer Location Encounter Start Date Encounter Closed Date Diagnosis/Indication Diagnosis SNOMED-CT Code Diagnosis ICD10 Code Diagnosis Note [id number] [facility] [address] [place] [address] 08/13/2015 16:40:31 08/13/2015 16:57:33 [id number] [address] [place] [address] 08/06/2015 18:39:39 08/06/2015 19:19:40 [id number] [address] [place] [address] 11/14/2020 08:20:52 11/14/2020 08:41:20 [id number] [address] [place] [address] 06/26/2021 09:36:06 06/26/2021 12:02:09 [id number] [address] [place] [address] 12/22/2019 11:54:59 12/22/2019 13:13:05 [id number] [address] [facility] [place] [address] 05/25/2021 17:20:22 05/25/2021 18:52:40 [id number] [address] [place] [address] 05/11/2016 12:36:11 05/11/2016 14:11:43 [id number] JAKE PATEL [address] [place] [address] 02/25/2023 17:44:06 02/25/2023 18:35:21 Contact dermatitis 43545057 L25.9 Abscess of breast 992088 03 N61.1 Perianal pain 115291531 R10.2 There is an abnormal growth at the 8 oclock position. Differenti al: Perianal Abscess, Anal fistula, Skin Growth I am recommendi ng the patient follow up with a colorectal surgeon for an evaluation of this area.Colon oscopy was up to date in July - this started after Will prescribe antibiotic s for the abscess in the breast - I am hoping this will help with some of the discomfort . Keep dry. May want do sit in a Warm bath of Epsen Salt Soaks for the discomfort . Ok to use Preperatio n H wipes. Health Concerns Section Related Observation LastModified by Organization Detai ls LastModified Time None Recorded Concern Status LastModified by Organization Details LastModified Time None Recorded Advance Directives Directive None Recorded Payers Insurance Date Sequence Insurance Name Policy Number Policy Law Covered Member ID Law Member ID Guarantor Name 02/25/2023 1 [facility] () Vel Forrester [id number] Vel Forrester 02/25/2023 1 [employer] [facility] [employer] (POS) [id number] Vel Forrester [id number] Vel Forrester Notes Date Note Type Note Provider Name and Address Organization Details Recorded Time 3 text/html Rash / Skin LesionReported bypatient.source of patient informationInformation obtained from patient Location:chest; Left breast around aerola. Quality:red Severity:mild Duration:4 days; weeksNotes:Increased redness around the left nipple. Very tender. Feels like a lump. No drainage. HAs not had this before. No trauma. No lymph node swelling.Rectal PainReported bypatient.Location:perineum Quality:rectal pain;sharp Duration:2 months Onset/Timing:Wax and Wanes - feels a lump. Context:no rectal bleeding; not related to bowel movement Aggravating Factors:no aggravating factors Alleviating Factors:relief with hemorrhoid creams Associated Symptoms:no diarrhea; no constipation; no fever; no chills; no drainage; no swelling; no blood in the urine; no heartburn; no nausea; no vomiting; no change in appetite; no difficulty urinatingNotes:The patient reports has a lump and growth in the rectal area. It is very sore and it comes and goes in intensity but the lump is always there. Can't say if it grows or drains. The patient just feels a lot of pain. No blood in stool. Had colonoscopy in July and this started after. No history of this. No abdominal pain. Normal spinter tone. Has just been using Preperation H. JAKE PATEL [address] [place], [address], [place] - [facility] 02/25/2023 20:09:40
== END 2025-01-02 10:25 | disposition home or self-care (01) ==
LOC: HO.HMCH 09:31
PROVIDERS: PCP Internal Medicine; Visit Provider Internal Medicine
DX: E78.00 Pure hypercholesterolemia, unspecified (principal); M17.12 Unilateral primary osteoarthritis, left knee; E66.9 Obesity, unspecified; Z68.30 Body mass index [BMI] 30.0-30.9, adult; S46.912S Strain of unspecified muscle, fascia and tendon at shoulder and upper arm level, left arm, sequela; E55.9 Vitamin D deficiency, unspecified; N52.9 Male erectile dysfunction, unspecified; G47.00 Insomnia, unspecified; F33.9 Major depressive disorder, recurrent, unspecified

== ENCOUNTER → 2025-01-02 09:31 | Outpatient (BNVA) | payer OTHER, SELFPAY | PROVIDERS: PCP Internal Medicine; Visit Provider Internal Medicine | DX: E78.00 Pure hypercholesterolemia, unspecified (principal); M17.12 Unilateral primary osteoarthritis, left knee; S46.912S Strain of unspecified muscle, fascia and tendon at shoulder and upper arm level, left arm, sequela; E55.9 Vitamin D deficiency, unspecified; N52.9 Male erectile dysfunction, unspecified; G47.00 Insomnia, unspecified; F33.9 Major depressive disorder, recurrent, unspecified; E66.9 Obesity, unspecified; Z79.899 Other long term (current) drug therapy | CPT/HCPCS: 96127; 99212 ==

== ENCOUNTER 2025-01-15 06:03 | Outpatient (REF) | payer OTHER, SELFPAY ==
[2025-01-15 06:16] LABS: MANUAL DIFF FLAG NO
[2025-01-15 07:19] LABS: Basophils Percent Auto 0.9 % (0-2); Eosinophils Absolute Auto 0.1 X10*3/uL (0.0-0.4); Eosinophils Percent Auto 3.4 % (0-4); Hematocrit 44.1 % (42.0-52.0); Hemoglobin 14.7 g/dl (14.0-18.0); Imm Gran Abs Auto 0.01 X10*3/uL (0.00-0.03); Imm Gran Pct Auto 0.3 % (0.0-0.4); Lymphocytes Absolute Auto 1.1 X10*3/uL (1.2-4.9); Lymphocytes Percent Auto 33.4 % (20-40); Mean Corpuscular HGB Conc 33.3 g/dl (31.0-36.0); Mean Corpuscular Hemoglobin 29.7 pg (27.0-33.0); Mean Corpuscular Volume 89.1 fL (80.0-98.0); Mean Platelet Volume 9.7 fL (9.4-12.4); Monocytes Absolute Auto 0.3 X10*3/uL (0.1-1.2); Monocytes Percent Auto 9.4 % (2-11); Neutrophils Absolute Auto 1.7 x10*3/uL (2.0-8.3); Neutrophils Percent Auto 52.6 % (45-73); Platelet Count 214 X10*3/uL (160-400); Red Blood Count 4.95 X10*6/uL (4.60-5.80); Red Cell Distribution Width 13.3 % (11.0-16.0); White Blood Count 3.2 X10*3/uL (4.8-10.8)
[2025-01-15 07:24] LABS: Appearance Urine Clear; Color Urine Yellow; Glucose Urine UA Negative (Negative); Leukocyte Esterase Urine Negative (Negative); Nitrite Urine Negative (Negative); PH 5.5 (5.0-9.0); Urine Blood Negative (Negative); Urine Ketones Negative (Negative); Urine Protein Trace mg/dL (Neg-Trace)
[2025-01-15 07:57] LABS: Alanine Aminotransferase 47 U/L (0-40); Albumin Level 4.2 g/dL (3.5-5.0); Alkaline Phosphatase 52 U/L (39-117); Anion Gap 11 (12-20); Aspartate Amino Transferase 35 U/L (5-37); Bilirubin Total 0.6 mg/dL (0.0-1.0); Blood Urea Nitrogen 17 mg/dL (9-16); Calcium 9.1 mg/dL (8.4-10.2); Carbon Dioxide 25 mmol/L (22-29); Chloride 110 mmol/L (96-108); Cholesterol 213 mg/dL (<200); Estimated Glomerular Filt Rate > 60; Glucose Fasting 97 mg/dL (60-99); HDL Cholesterol 50 mg/dL (>40); LDL Cholesterol Calculated 124 mg/dL (<100); Potassium 3.9 mmol/L (3.3-5.1); Sodium 142 mmol/L (135-145); Total Protein 7.9 g/dL (6.5-8.0); Triglycerides 198 mg/dL (<150)
[2025-01-15 08:15] LABS: TSH reflex Free T4 2.21 uIU/mL (0.32-4.0); Vitamin D 25-OH Total 41.7 ng/mL (>30)
== END 2025-01-15 06:04 | disposition home or self-care (01) ==
LOC: HO.LAB 06:03
PROVIDERS: PCP Internal Medicine; Visit Provider Internal Medicine
DX: D64.9 Anemia, unspecified (principal); E78.00 Pure hypercholesterolemia, unspecified; R30.0 Dysuria; E55.9 Vitamin D deficiency, unspecified
CPT/HCPCS: 36415; 80053; 80061; 81003; 82306; 84443; 85025

== ENCOUNTER 2025-01-16 09:13 | Outpatient (REF) | payer OTHER, SELFPAY ==
--- NOTE | ~2025-01-16 | XR_ITS ---
EXAMINATION: XR SHOULDER, LEFT CLINICAL INFORMATION: M25.512 - Pain in left shoulder COMPARISON: None available. TECHNIQUE: AP external rotation, Grashey, scapular Y, and axillary views of the left shoulder. FINDINGS: Normal bone mineralization. No fracture, dislocation, or suspicious bone lesion. Normal alignment. The glenohumeral joint demonstrates mild degenerative arthritis. The AC joint demonstrates mild degenerative arthritis with minimal undersurface spurring. There is a type II acromion. No undersurface spurring. The subacromial space is preserved. Remainder of the soft tissue and bony structures appear normal. XR/XR shoulder LT min 2V IMPRESSION: 1. No acute findings of the left shoulder. 2. Mild degenerative arthritis of the glenohumeral joint and AC joint. Electronically signed by: Alli Jha MD 01/16/2025 12:14 PM EDT
--- OUTSIDE RECORDS SUMMARY | 2025-01-16 09:49 | XMS_ITS | Data Portability ---
Author Organization JAKE Melara s [address] Address [address] [place] [address] Assessment No assessment recorded. Plan of Treatment Reminders Order Date Submit Date Provider Last Modified By Organization Details Last Modified Time Details Appointments None recorded. Lab None recorded. Referral colon & rectal surgeon referral 2022 023 [facility] Colorectal Surgery Scheduling Dept, [address] [place], [address], 3 00:26:17 Procedures None recorded. Surgeries None recorded. Imaging None recorded. Medication Orders clindamycin HCl 300 mg capsule 2022 023 [facility]/Pharmacy #[id number], [address] [place], [address], 3 18:34:06 metronidazo le 500 mg tablet 2022 023 [facility]/Pharmacy #[id number], [address] [place], [address], 3 18:34:08 clotrimazol e-betametha sone 1 %-0.05 % topical cream 2022 023 [facility]/Pharmacy #[id number], [address] [place], [address], 3 18:34:06 Patient TargetsNo targets recorded. Patient Instructions Encounter Date Encounter Id Patient Instructions Last Modified By Organization Details Last Modified Time 02/25/2023 [id number] breast abscess: care instructions [email or web address] Not available 02/25/2023 18:34:03 dermatitis: care instructions [email or web address] Not available 02/25/2023 18:34:03 Based on exam [...] 4. Increased Redness Thank you for using [employer] today, please feel free to contact our office if you have any questions or concerns. [email or web address] Not available 02/25/2023 18:34:01 Reason for Referral Colon & Rectal Surgeon Refer ral for Perianal pain Referring Physician: Mima Huynh, Urgent Care, Encounter Date: 02/25/2023 Problems Name Problem SNOMED Code Status Onset Date Resolution Date Notes Provider Name and Address Organization Details Recorded Time Anxiety 60389677 Active JAKE Thompson - [facility] 02/25/2023 18:04:37 Problem Notes None recorded. Medical [...] height Body mass index (BMI) Body weight Respiratory rate Oxygen saturation Oxygen saturation in Arterial blood by Pulse oximetry Heart rate Body temperature Systolic blood pressure Diastolic blood pressure Provider Name and Address Organization Details Last Updated DateTime 3 187.96 cm 30.8 kg/m2 325575. 17 g 16 /min 98 % 98 % 70 /min 97.9 [degF] 130 mm[Hg] 90 mm[Hg] [facility] 18:07:49 Social History Question Answer Notes LastModified by Organizat ion Details LastModified Time Tobacco Smoking Status Never Smoker JAKE Thompson [facility] 02/25/2023 18:05:36 Have You Had Direct [...] SNOMED-CT Code Diagnosis ICD10 Code Diagnosis Note [id number] [address] [place] [address] 08/13/2015 16:40:31 08/13/2015 16:57:33 [id number] [address] [place] [address] 08/06/2015 18:39:39 08/06/2015 19:19:40 [id number] [address] [place] [address] 11/14/2020 08:20:52 11/14/2020 08:41:20 [id number] [address] [place] [address] 06/26/2021 09:36:06 06/26/2021 12:02:09 [id number] [address] [place] [address] 12/22/2019 11:54:59 12/22/2019 13:13:05 [id number] [address] [place] [address] 05/25/2021 17:20:22 05/25/2021 18:52:40 [id number] [address] [place] [address] 05/11/2016 12:36:11 05/11/2016 14:11:43 [id number] JAKE PATEL [address] [facility] [place] [address] 02/25/2023 17:44:06 02/25/2023 18:35:21 Contact dermatitis 38194519 L25.9 Abscess of breast 463017 03 N61.1 Perianal pain 063980191 R10.2 There is an abnormal growth at [...] Law Member ID Guarantor Name 02/25/2023 1 [facility] - PRIME () Vel Forrester [id number] Vel Forrester 02/25/2023 1 [facility] - FAMILY HEALTH PLAN (POS) [id number] Vel Forrester [id number] Vel Forrester Notes Date Note Type Note Provider Name and Address Organization Details Recorded Time 07/07/202 3 text/html Rash / Skin LesionReported bypatient.source [...] been using [employer]. JAKE PATEL [address] [place], [address], [place] - [facility] 02/25/2023 20:09:40
== END 2025-01-16 09:14 | disposition home or self-care (01) ==
LOC: HO.XRAY 09:13
PROVIDERS: PCP Internal Medicine; Visit Provider Internal Medicine
DX: M25.512 Pain in left shoulder (principal)
CPT/HCPCS: 73030

== ENCOUNTER → 2025-01-16 09:16 | Outpatient (BNV) | payer OTHER, SELFPAY | PROVIDERS: PCP Internal Medicine; Visit Provider Radiology Diagnostic Radiology | DX: M19.012 Primary osteoarthritis, left shoulder (principal) | CPT/HCPCS: 73030 ==

== ENCOUNTER 2025-06-29 09:25 | Outpatient (REF) | payer OTHER, SELFPAY ==
--- OUTSIDE RECORDS SUMMARY | 2025-06-29 09:28 | XMS_ITS | Clinical Summary ---
Author Organization [address] [facility] Address [address] [place] [address] Phone Care Team Providers Care Lumber Sorter Machine Name Role Phone Matthew Baca MD Primary Care Provider Social History Tobacco Use Types Packs/Day Years Used Date Smoking Tobacco: Never Assessed Sex and Gender Information Value Date Recorded Sex Assigned at Not on file Legal Sex Male 12:35 PM EST Gender Identity Not on file Sexual Orientation Not on file Plan of Treatment Health Maintenance Due Date Last Done Comments Colorectal Cancer Screening: Colonoscopy 1962 DTaP,Tdap,and Td Vaccines (1 - Tdap) 1981 Pneumococcal Vaccine: 50+ Ye ars (1 of 1 - PCV) 02/17/2012 Zoster Vaccines (1 of 2) 02/17/2012 Cholesterol Screening (Lipid Panel) 07/20/2022 HIV Screening 07/20/2022 Hepatitis C Screening 07/20/2022 Social Influencers of Health Screening 07/20/2022 Depression Screening 08/22/2024 COVID-19 Vaccine (1 - 2023-2 5 season) 2025 Influenza Vaccine (#1) 2025 RSV Immunization Adult Patie nts (1 [...] patient's age to complete this topic Insurance [phone] (Work) [address] [place] [address] [facility] HEALTH PLAN Care Teams Lumber Sorter Machine Relationship Specialty Start Date End Date Matthew Baca MD [address] [place] [address] [address] [place] PCP - General Internal Medicine 08/07/24
--- OUTSIDE RECORDS SUMMARY | 2025-06-29 09:28 | XMS_ITS | Patient Health Record ---
Author Organization [facility] Address [address] [place] [address] Care Team Providers Care Bath Design Sales Consultant Name Role Phone Keven SHAH, Matthew Primary Care Provider Danie Glez Unavailable [phone] Reason For Referral No Information Medications Medication SIG (Take, Route, Frequency, Duration) Notes Start Date End Date Status Lipitor 20 MG 1 tablet Orally Once a day Active Problems Problem Type SNOMED Code ICD Code Onset Dates Problem Status W/U Status Risk Notes Problem Acute pancreatitis (286781324) Acute pancreatitis (577.0) Active confirmed Problem Epigastric pain (55670045) Abdominal pain, epigastric (789.06) Active confirmed Problem Abnormal findings on imaging of biliary tract (793.3) Active confirmed Problem Pancreatitis (62812539) Pancreatitis (577.0) Active confirmed Plan Of Treatment Pending Test Test Name Order Date MRI ABD NO CONTRAST (MRCP) 05/26/2014 MRI ABD W&WO CONTRAST 05/26/2014 Insurance Providers Payer Name Payer Address Payer Phone Subscriber Number Group Number Insured Name Patient Relationship to Insured Coverage Start Date Coverage End Date [facility] (NEEDS REF and PA) [facility] CLAIMS [address] [place] [address] [id number] LASHAE FLORES Self - patient is the insured Medical (General) History Medical History History ICD Code Denies [place],DM,CVA,Lung disease,renal dise ase [place] [facility] on 05/06 and for abdominal pain, and reported pancreatitis while at [facility] on the 05/12/14 ER visit [address] Deshawn renee--most recent exam was in 2011--all neg. for polyps Surgical History Surgery Date(Month/Year) anal fissure Abdominal surgery for remova l of a lymph node from the abdomen-benign
--- OUTSIDE RECORDS SUMMARY | 2025-06-29 09:29 | XMS_ITS | Data Portability ---
Author Organization JAKE Main [facility], [address] Address [address] [place] [address] Assessment No assessment recorded. Plan of Treatment Reminders Order Date Submit Date Provider Last Modified By Organization Details Last Modified Time Details Appointments None recorded. Lab None recorded. Referral colon & rectal surgeon referral 2022 023 [facility] Colorectal Surgery Scheduling Dept, [address] [place], [address], 3 00:26:17 Procedures None recorded. Surgeries None recorded. Imaging None recorded. Medication Orders clindamycin HCl 300 mg capsule 2022 023 [facility]/Pharmacy #[id number], [address] [place], [address], 3 18:34:06 metronidazo le 500 mg tablet 2022 023 [facility]/Pharmacy #0693, [address] [place], [address], 3 18:34:08 clotrimazol e-betametha sone 1 %-0.05 % topical cream 2022 023 [facility]/Pharmacy #[id number], [address] [place], [address], 3 18:34:06 Patient TargetsNo targets recorded. Patient Instructions Encounter Date Encounter Id Patient Instructions Last Modified By Organization Details Last Modified Time 02/25/2023 [id number] breast abscess: care instructions [email or web address] Not available 02/25/2023 18:34:03 dermatitis: care instructions [email or web address] Not available 02/25/2023 18:34:03 Based on exam [...] 4. Increased Redness Thank you for using [employer] today, please feel free to contact our office if you have any questions or concerns. [email or web address] Not available 02/25/2023 18:34:01 Reason for Referral Colon & Rectal Surgeon Refer ral for Perianal pain Referring Physician: Mima Huynh, Urgent Care, Encounter Date: 02/25/2023 Problems Name Problem SNOMED Code Status Onset Date Resolution Date Notes Provider Name and Address Organization Details Recorded Time Anxiety 56211056 Active JAKE Thompson - [facility] 02/25/2023 18:04:37 Problem Notes None recorded. Medical [...] Pulse oximetry Heart rate Body temperature Systolic And Diastolic Provider Name and Address Organization Details Last Updated DateTime 3 187.96 cm 30.8 kg/m2 193407. 17 g 4 16 /min 98 % 98 % 70 /min 97.9 [degF] 130/90 mm[Hg] Maru Patel [facility] 3 18:07:49 [...] Diagnosis SNOMED-CT Code Diagnosis ICD10 Code Diagnosis IMO Codes Diagnosis Note [id number] [address] [place] [address] 08/13/2015 16:40:31 08/13/2015 16:57:33 [id number] [address] [place] [address] 08/06/2015 18:39:39 08/06/2015 19:19:40 [id number] [address] [place] [address] 11/14/2020 08:20:52 11/14/2020 08:41:20 [id number] [address] [place] [address] 06/26/2021 09:36:06 06/26/2021 12:02:09 [id number] [address] [place] [address] 12/22/2019 11:54:59 12/22/2019 13:13:05 [id number] [address] [place] [address] 05/25/2021 17:20:22 05/25/2021 18:52:40 [id number] [address] [place] [address] 05/11/2016 12:36:11 05/11/2016 14:11:43 [id number] JAKE PATEL [address] [place] [address] 02/25/2023 17:44:06 02/25/2023 18:35:21 Contact dermatitis 84297295 L25.9 Abscess of breast 505240 03 N61.1 Perianal pain 208429753 R10.2 There is an abnormal growth at [...] Law Member ID Guarantor Name 02/25/2023 1 [facility] - PRIME () Vel Forrester [id number] Vel Forrester 02/25/2023 1 [facility] - [facility] PL[facility] - FAMILY HEALTH PLAN (POS) [id number] Vel Forrester [id number] Vel Forrester Notes Date Note Type Note Provider Name and Address Organization Details Recorded Time 02/25/2023 text/html Rash / Skin LesionReported by PatientHPIFor quality, patient reportsred. For source of patient information, patient reportsinformation obtained from patient. For location, patient reportschest(left breast around aerola.). For severity, patient reportsmild. For duration, patient reports4 daysand___ weeks.Increased redness around the left nipple. Very tender. Feels like a lump. No drainage. HAs not had this before. No trauma. No lymph node swelling. Rectal PainReported by PatientHPIFor quality, patient reportsrectal painandsharp. For location, patient reportsperineum. For duration, patient reports2 months. For context, patient reportsno rectal bleedingandnot related to bowel movement. For aggravating factors, patient reportsno aggravating factors. For alleviating factors, patient reportsrelief with hemorrhoid creams. For associated symptoms, patient reportsno diarrhea,no constipation,no fever,no chills,no drainage,no swelling,no blood in the urine,no heartburn,no nausea,no vomiting,no change in appetite, andno difficulty urinating. For onset/timing, (wax and wanes - feels a lump.).The patient reports has a lump and growth [...] H. JAKE PATEL [address] [place], [address], [place] - [facility] 02/25/2023 20:09:40
--- OUTSIDE RECORDS SUMMARY | 2025-06-29 09:29 | XMS_ITS | Encounter Summary ---
Author Organization [facility] Address [address] [place] [address] Care Team Providers Care Supervisor Education Name Role Phone Matthew Baca MD Primary Care Provider Encounter Details Date Type Department Care Team (Late st Contact Info) Description 08/07/2024 Lab Requisition [facility] - Main Lab [address] [place] [address] Pa Mccormick PA [address] [facility] [address] [place] [address] Benign prostatic hyperplasia without lower urinary tract [...] LAB CHEMISTRY METHOD 08/07/2024 1:55 PM EST [facility] Blood Venous blood specimen / Unknown 08/07/2024 8:48 AM EST 08/07/2024 12:32 PM EST [facility]ative [facility] - 08/07/2024 1:55 PM EST The Siemens Advia Centaur Chemiluminescent Immunoassay is used. Results obtained with different assay methods or kits cannot be used interchangeably. Results cannot be interpreted as absolute evidence of the presence or absence of malignant disease. us Pa [facility] LAB BLOOD ORDERABLES Final Resul t [facility] [address] [place] [address], documented in this encounter Visit Diagnoses Diagnosis Benign prostatic hyperplasia without lower urinary tract symptoms documented in this encounter Care Teams Supervisor Education Relationship Specialty Start Date End Date Matthew Baca MD [address] [place] [address] Dr [address] [place] PCP - General Internal Medicine 08/07/24 documented as of this encounter
[2025-06-29 09:48] LABS: MANUAL DIFF FLAG NO
[2025-06-29 10:38] LABS: Hematocrit 46.9 % (42.0-52.0); Hemoglobin 15.0 g/dl (14.0-18.0); Imm Gran Abs Auto 0.01 X10*3/uL (0.00-0.03); Imm Gran Pct Auto 0.3 % (0.0-0.4); Lymphocytes Absolute Auto 0.9 X10*3/uL (1.2-4.9); Mean Corpuscular HGB Conc 32.0 g/dl (31.0-36.0); Mean Corpuscular Hemoglobin 28.2 pg (27.0-33.0); Mean Corpuscular Volume 88.2 fL (80.0-98.0); NRBC Abs Auto 0.000 X10*3/uL (0.0-0.012); NRBC Pct Auto 0.0 /100WBC (0.0-0.2); Platelet Count 227 X10*3/uL (160-400); Red Blood Count 5.32 X10*6/uL (4.60-5.80); White Blood Count 3.2 X10*3/uL (4.8-10.8)
[2025-06-29 11:15] LABS: Appearance Urine Turbid; Glucose Urine UA Negative (Negative); PH 6.5 (5.0-9.0); Specific Gravity - Urine 1.020 (1.005-1.025); UMIC TRIGGER UACC YES
[2025-06-29 11:41] LABS: Alanine Aminotransferase 30 U/L (0-40); Albumin Level 4.4 g/dL (3.5-5.0); Alkaline Phosphatase 75 U/L (39-117); Anion Gap 12 (12-20); Aspartate Amino Transferase 26 U/L (5-37); Blood Urea Nitrogen 14 mg/dL (9-16); Calcium 9.0 mg/dL (8.4-10.2); Carbon Dioxide 25 mmol/L (22-29); Chloride 109 mmol/L (96-108); Cholesterol 189 mg/dL (<200); Estimated Glomerular Filt Rate > 60; HDL Cholesterol 47 mg/dL (>40); Potassium 4.2 mmol/L (3.3-5.1); Sodium 142 mmol/L (135-145); Total Protein 8.1 g/dL (6.5-8.0); Triglycerides 89 mg/dL (<150)
[2025-06-29 11:56] LABS: Prostate Specific Antigen 0.77 ng/mL (<0.05-4.0)
== END 2025-06-29 09:26 | disposition home or self-care (01) ==
LOC: HO.LAB 09:25
PROVIDERS: PCP Internal Medicine; Visit Provider Internal Medicine
DX: Z00.00 Encounter for general adult medical examination without abnormal findings (principal); E55.9 Vitamin D deficiency, unspecified; E78.00 Pure hypercholesterolemia, unspecified; D64.9 Anemia, unspecified; N40.0 Benign prostatic hyperplasia without lower urinary tract symptoms; Z12.5 Encounter for screening for malignant neoplasm of prostate; R30.0 Dysuria
CPT/HCPCS: 36415; 80053; 80061; 81001; 81003; 82306; 84153; 84443; 85025

== ENCOUNTER 2025-07-08 09:16 | Outpatient (AMB) | payer OTHER, SELFPAY ==
[2025-07-08 09:19] VITALS: BP 120/86; PULSE 80; O2SAT 96; BMI 30.6
--- NOTE | 2025-07-08 09:19 | A.OFFPC_ITS ---
Vital Signs 07/08/25 09:19 Height 6 ft 2 in Weight 238 lb 8 oz BMI 30.6 BP 120/86 Blood Pressure Location Lt brachial Position Sitting Pulse 80 Pulse Source Pulse Oximeter Pulse Oximetry (%) 96 Oxygen Delivery Method Room Air Intake Visit Reasons: Annual Exam Departmental Secretary Required: No Accompanied by: Self / Same As Patient Allergies No Known Allergies Allergy (Verified 07/08/25 09:37) Medication List - Last Reconciled 07/08/25 by Matthew Baca MD atorvastatin 20 mg PO BEDTIME ibuprofen 800 mg PO TID PRN sertraline 50 mg PO DAILY trazodone 25 mg PO BEDTIME PRN Tobacco use date assessed: 07/08/25 Dental Screening Dental Screen Date: 07/08/25 Did you have a dental visit in the last 12 months?: Yes Did you have a dental problem in the last 6 months where you did not have access to dental care?: No Was dental information given to patient?: Patient has dentist HPI Annual Exam HPI Details Patient comes in today for his annual physical examination States that he feels okay He denies any headaches or dizziness Denies any chest pains, no SOB No nausea/vomiting, no abdominal pain No change in bowel habits noted Denies any acute urinary symptoms He had his follow up labs done about a week ago - to discuss his results He had his screening colonoscopy last done in [address] Yo and was recommended to get repeat colonoscopy in 5 years (2026) [facility] Medical History (Updated 07/08/25 @ 09:46 by Matthew Baca MD) Vitamin D deficiency Insomnia Generalized headaches Overweight (BMI 25.0-29.9) Erectile dysfunction Obesity (BMI 30-39.9) Primary osteoarthritis of left knee Pure hypercholesterolemia Dermatitis Orthostatic hypotension Dizziness Surgical History (Updated 07/08/25 @ 09:40 by Matthew Baca MD) Hx of colonoscopy H/O left knee surgery History of right inguinal hernia repair History of splenectomy Family History Father No problems noted. Mother Diabetes Social History Housing: Condominium Alcohol intake: current Alcohol intake frequency: a few times a week Patient Tobacco Use Status: Never used Tobacco e-Cigarette/Vaping Use: Never Used Second Hand Smoke Exposure: No service: No Current occupational status: employed Current occupational exposures/hazards: No Cognitive needs: No Hearing needs: No Vision needs: No Questionnaire PHQ-9 Over the last 2 weeks, how often have you been bothered by any of the following problems? 1. Little interest or pleasure in doing things: not at all 2. Feeling down, depressed, or hopeless: not at all 3. Trouble falling or staying asleep, or sleeping too much: not at all 4. Feeling tired or having little energy: not at all 5. Poor appetite or overeating: not at all 6. Feeling bad about yourself - or that you are a failure or have let yourself or your family down: not at all 7. Trouble concentrating on things, such as reading the newspaper or watching television: not at all 8. Moving or speaking so slowly that other people could have noticed. Or the opposite - being so fidgety or restless that you have been moving around a lot more than usual: not at all 9. Thoughts that you would be better off or of hurting yourself in some way: not at all Total score: 0 Depression Screening Interpretation: Negative Depression Screening Done: Yes 28974 - PHQ-9 Billing: Yes Source: Developed by Drs. Danie Zamudio, Olesya Raya, Turner Joiner and colleagues, with an educational jeaneth from [employer]. Thrive Questionnaire Date Thrive assessed: 07/08/25 I am a: Patient What is your living situation today?: I have a steady place to live Within the past 12 months, did the food you bought not last and you didn't have the money to get more?: I choose not to answer this question Within the past 12 months, did you worry whether your food would run out before you got money to buy more?: Often true Do you have trouble paying for medicines?: No Do you have trouble getting transportation to medical appointments?: No Do you have trouble paying your heating and electricity bill?: No Do you have trouble taking care of your child, family member or friend?: No Do you have trouble with day-to-day activities such as bathing, preparing meals, shopping, managing finances, etc.?: I choose not to answer this question Are you currently unemployed and looking for a job?: I choose not to answer this question Are you interested in more education?: I choose not to answer this question Please select the resources that you would like help with: None Currently or been in a relationship where the following occur: No concerns reported THRIVE Score: 1 AUDIT C Alcohol Use Questionnaire (AUDIT-C) 1. How often do you have a drink containing alcohol?: 2-4 times a month 2. How many drinks containing alcohol do you have on a typical day when you are drinking?: 1 or 2 3. How often do you have six or more drinks on one occasion?: Never Total Score: 2 Score Reviewed/Action Taken: Yes JENNYFER-7 AMB Questionnaire JENNYFER-7 Date JENNYFER - 7 assessed: 07/08/25 Feeling nervous, anxious, or on edge: 1 = Several days Not being able to stop or control worryin = Several days Worrying too much about different things: 1 = Several days Trouble relaxin = Several days Being so restless that it is hard to sit still: 1 = Several days Becoming easily annoyed or irritable: 1 = Several days Feeling afraid as if something awful might happen: 1 = Several days Total JENNYFER-7 score (0-4 normal; 5-9 mild; 10-14 moderate; 15-21 severe): 7 Source: Developed by Drs. Danie Zamudio, Olesya Raya, Turner Joiner and colleagues, with an educational jeaneth from [employer]. Review of Systems Const Denies chills, Denies fatigue, Denies fever(s), Denies headache(s), Denies malaise and Denies weakness Eyes Denies blurry vision, Denies change in vision, Denies irritation and Denies itchy eyes ENT Denies dysphagia, Denies dizziness, Denies otalgia, Denies headache(s), Denies nasal congestion, Denies neck pain, Denies odynophagia and Denies sore throat Card Denies rapid heart rate, Denies irregular heart rhythm, Denies palpitations and Denies dyspnea Resp Denies chest congestion, Denies cough, Denies dyspnea and Denies wheezing GI Denies abdominal pain, Denies bloating, Denies constipation, Denies dysphagia, Denies heartburn, Denies diarrhea, Denies nausea, Denies odynophagia and Denies vomiting Denies hematuria, Denies difficulty urinating, Denies dysuria, Denies urinary frequency and Denies urinary urgency Musc Denies back pain, Reports arthralgias (involving the left shoulder and left knee), Denies joint swelling, Denies muscle weakness and Denies neck pain Skin/Breast Denies change in pigmentation, Denies lesions, Denies rash and Denies unusual bruising Neuro Denies dizziness, Denies headache(s), Denies paresthesias and Denies weakness Endo Denies fatigue and Denies palpitations Aller/Immun Denies itchy eyes and Denies wheezing Physical exam (Primary Care) Vital Signs: Last Vital Signs Pulse 80 07/08/25 09:19 BP 120/86 07/08/25 09:19 Pulse Ox 96 07/08/25 09:19 Oxygen Delivery Method Room Air 07/08/25 09:19 BMI result Body Mass Index 30.6 Tobacco/Smoking Status: Tobacco use Status Tobacco use date assessed 07/08/25 07/08/25 09:27 Patient Tobacco Use Status Never used Tobacco 07/08/25 09:27 e-Cigarette/Vaping Use Never Used 07/08/25 09:27 PHQ-9: PHQ-9 Score PHQ-9: Total score 0 07/08/25 09:27 Depression Screening Interpretation: Negative Thrive Assessment: Date of Thrive Assessment Date Thrive assessed 07/08/25 07/08/25 09:27 Currently or been in a relationship where the following occur: No concerns reported Const General: no acute distress, alert and awake Orientation/consciousness: patient oriented x3 HENMT Head: Yes normocephalic and Yes atraumatic Ears: external ears normal, TM's normal bilaterally and EAC's normal General nose exam: No nasal discharge present Face and sinus: Yes normal facial exam and Yes sinuses nontender Teeth and gingiva: dentition normal Throat: Yes posterior oropharynx normal and Yes tonsils normal (no TP congestion ) Eyes Eyelids: Yes eyelids normal Conjunctivae: conjunctivae normal Pupils: Equal, round and reactive pupils present EOM: EOMs intact bilaterally Neck Neck: Yes no lymphadenopathy and Yes supple Thyroid: Thyroid normal Resp Auscultation: clear to auscultation bilaterally, no rales and no wheezes Cardio Rate: regular rate Rhythm: regular rhythm Heart sounds: no murmurs GI Palpation (GI): Soft to palpation, nontender and No hepatosplenomegaly present Auscultation: normal bowel sounds General: Yes no CVA tenderness Back/Spine/Pelvis Back: no CVA tenderness Thoracic/Lumbar Spine: thoracic and lumbar spine normal to inspection Skin Lesions: no lesions Rashes: no rashes Neuro General: patient oriented x3, moves all extremities, no focal motor deficits and CN's II-XI intact bilaterally Cranial nerves: Yes Equal, round and reactive pupils present Cognition (Neuro): normal cognition Gait exam (Neuro): Normal gait present Extrem General: Yes no clubbing, cyanosis or edema Results Reviewed Results Reviewed: Laboratory Tests 06/29/25 06/29/25 09:45 09:47 WBC 3.2 L Hgb 15.0 Hct 46.9 Plt Count 227 Sodium 142 Potassium 4.2 Creatinine 1.09 Estimated GFR > 60 Fasting Glucose 86 Calcium 9.0 AST 26 ALT 30 Triglycerides 89 Cholesterol 189 LDL Cholesterol, Calc 125 H HDL Cholesterol 47 Prostate Specific Ag 0.77 25-OH Vitamin D Total 44.6 TSH 1.78 Ur Specific [place] 1.020 Urine Protein Trace Urine Glucose (UA) Negative Urine Blood Negative Urine Nitrite Negative Ur Leukocyte Esterase Trace H Coding Level of Care Code Est Pt Prev Care 40-64y(41364) Diagnoses Annual physical exam Z00.00 Pure hypercholesterolemia E78.00 Osteoarthritis of left knee, unspecified osteoarthritis type M17.12 Osteoarthritis type: unspecified Primary osteoarthritis, left shoulder M19.012 Vitamin D deficiency E55.9 Erectile dysfunction, unspecified erectile dysfunction type N52.9 Erectile dysfunction type: unspecified Insomnia, unspecified type G47.00 Insomnia type: unspecified Episode of recurrent major depressive disorder, unspecified depression episode severity F33.9 Active/Remission status: currently active Major depression episode severity: unspecified Obesity (BMI 30-39.9) E66.9 Additional Codes PHQ-9 - 23566 - PHQ-9 Billing: Yes ([id number]) Assessment & Plan Assessment & Plan (1) Annual physical exam: Code(s): Z00.00 - Encounter for general adult medical examination without abnormal findings Category: Medical Plan: Results of his labs done about a week ago reviewed and discussed with patient He had his screening colonoscopy last done in [address] Yo and was recommended to get repeat colonoscopy in 5 years (2026) (2) Pure hypercholesterolemia: Code(s): E78.00 - Pure hypercholesterolemia, unspecified Category: Medical Plan: Patient is advised that his serum triglyceride level has improved significantly from previous; his LDL cholesterol is mostly unchanged Reinforced low cholesterol diet Continue Atorvastatin 20 mg QD Will recheck his labs and fasting lipids again in 6 months for follow up (3) Degenerative joint disease of left knee: Code(s): M17.12 - Unilateral primary osteoarthritis, left knee Category: Medical Qualifiers: Osteoarthritis type: unspecified Qualified Code(s): M17.12 - Unilateral primary osteoarthritis, left knee Plan: MRI of the left knee done at [facility] [place] a couple of years ago revealed (+) lateral and medial meniscal tear as well as degenerative changes in the knee S/P lateral meniscal repair and physical therapy a couple of years ago - patient reports experiencing some improvement of symptoms initially after surgery but physical therapy helped as well Continue OTC Ibuprofen PRN Follow up with [facility] as scheduled (4) Primary osteoarthritis, left shoulder: Code(s): M19.012 - Primary osteoarthritis, left shoulder Category: Medical Plan: X-rays of the left shoulder done a few months ago revealed (+) mild degenerative arthritis of the glenohumeral joint and AC joint Patient would like to see [facility] as well for his shoulder, which he states is still bothering him often Per request, referral to [facility] placed (5) Vitamin D deficiency: Code(s): E55.9 - Vitamin D deficiency, unspecified Category: Medical Plan: Continue Vitamin D3 2000 units QD (6) Erectile dysfunction: Code(s): N52.9 - Male erectile dysfunction, unspecified Category: Medical Qualifiers: Erectile dysfunction type: unspecified Qualified Code(s): N52.9 - Male erectile dysfunction, unspecified Plan: Serum testosterone level checked last year came out normal Follow-up with urology as scheduled (7) Insomnia: Code(s): G47.00 - Insomnia, unspecified Category: Medical Qualifiers: Insomnia type: unspecified Qualified Code(s): G47.00 - Insomnia, unspecified Plan: Sleep hygiene reinforced Continue Trazodone 50 mg 1/2 tablet QD PRN (8) Major depression, recurrent: Code(s): F33.9 - Major depressive disorder, recurrent, unspecified Category: Medical Qualifiers: Active/Remission status: currently active Major depression episode severity: unspecified Qualified Code(s): F33.9 - Major depressive disorder, recurrent, unspecified Plan: Continue Sertraline 50 mg QD Follow up with psychiatry as scheduled (9) Obesity (BMI 30-39.9): Code(s): E66.9 - Obesity, unspecified Category: Medical Plan: Reinforced diet/exercise as tolerated/lose weight? Plan Follow up in 6 months Orders: Orders Lipid Panel 6 Months E78.00 - Pure hypercholesterolemia, unspecified Comprehensive [place]. Panel Fast 6 Months E78.00 - Pure hypercholesterolemia, unspecified Referrals Orthopedics Referral M17.12 - Unilateral primary osteoarthritis, left knee, M19.012 - Primary osteoarthritis, left shoulder
== END 2025-07-08 09:52 | disposition home or self-care (01) ==
LOC: HO.HMCH 09:17
PROVIDERS: PCP Internal Medicine; Visit Provider Internal Medicine
DX: Z00.00 Encounter for general adult medical examination without abnormal findings (principal); E78.00 Pure hypercholesterolemia, unspecified; E66.9 Obesity, unspecified; Z68.30 Body mass index [BMI] 30.0-30.9, adult; M17.12 Unilateral primary osteoarthritis, left knee; M19.012 Primary osteoarthritis, left shoulder; E55.9 Vitamin D deficiency, unspecified; N52.9 Male erectile dysfunction, unspecified; G47.00 Insomnia, unspecified; F33.9 Major depressive disorder, recurrent, unspecified

== ENCOUNTER → 2025-07-08 09:16 | Outpatient (BNVA) | payer OTHER, SELFPAY | PROVIDERS: PCP Internal Medicine; Visit Provider Internal Medicine | DX: Z00.00 Encounter for general adult medical examination without abnormal findings (principal); E78.00 Pure hypercholesterolemia, unspecified; M17.12 Unilateral primary osteoarthritis, left knee; M19.012 Primary osteoarthritis, left shoulder; E55.9 Vitamin D deficiency, unspecified; N52.9 Male erectile dysfunction, unspecified; G47.00 Insomnia, unspecified; F33.9 Major depressive disorder, recurrent, unspecified; E66.9 Obesity, unspecified; Z68.30 Body mass index [BMI] 30.0-30.9, adult | CPT/HCPCS: 96127 ==